=== PATIENT | female | born 1940 | race Caucasian/White ===

== ENCOUNTER 2019-01-19 22:33 | Observation (INO) | payer MEDICARE ==
[2019-01-19] MEDS ORDERED: Calcium Chloride 1 GM/10 ML Abboject SYRINGE ONE (22:36)
--- NOTE | 2019-01-19 23:26 | RAD ---
PORTABLE CHEST ONE VIEW: 01/19/2019 11:05 p.m. HISTORY: Dyspnea. Cough. Weakness. Shortness of breath. COMPARISON: 12/04/2016 FINDINGS: The patient is rotated. The heart size is normal. The lungs are well expanded without lobar consoli dation, pneumothoraces, beronica pulmonary edema, or pleural effusions. POS: [facility]
[2019-01-19 23:45] LABS: #Basophils 0.1 thou/uL (0.0-0.2); #Eosinphils 0.1 thou/uL (0.0-0.7); #Lymphocytes 1.3 thou/uL (1.20-3.40); #Monocytes 0.9 thou/uL (0.11-0.59); %Basophils 0.5 % (0.0-1.0); %Eosinophils 0.6 % (0.0-10.0); %Lymphocytes 10.6 % (21.0-51.0); %Monocytes 7.1 % (0.0-10.0); %Neutrophils 81.3 % (42.0-75.0); Hemoglobin 14.2 g/dL (12.0-16.0); Mean Corpuscular HGB CONC 32.5 g/dL (32.0-36.0); Mean Corpuscular Hemoglobin 30.7 pg (27.0-31.0); Mean Corpuscular Volume 94.6 fL (78.0-98.0); Mean Platelet Volume 8.7 fL (7.4-10.4); Platelet Count 212 thou/uL (130-400); RBC Distribution Width 12.4 % (11.5-14.5); Red Blood Cell (RBC) Count 4.63 mill/uL (4.20-5.40); White Blood Cell (WBC) Count 12.3 thou/uL (4.8-10.8)
[2019-01-19 23:48] LABS: Bacteria/HPF None Seen HPF (None Seen); Bilirubin Negative (Negative); Blood, Urine 1+ (Negative); Clarity Clear (Clear); Glucose, Urine (Dipstick) Normal (Negative); Leukocyte Negative Leu/uL (Negative); Nitrite Negative (Negative); Protein, Urine (Dipstick) Negative (Neg-Trace); RBC/HPF 0-3 HPF (0-3); Squamous Epithelial 0-3 HPF (0-3); Urobilinogen Normal mg/dL (Less than 2); WBC/HPF 0-3 HPF (0-3)
[2019-01-20 00:08] LABS: Troponin I 0.015 ng/mL (< 0.028)
[2019-01-20 00:23] LABS: ALT (SGPT) 8 U/L (8-55); AST (SGOT) 23 U/L (5-34); Albumin 3.7 g/dL (3.4-4.8); Alkaline Phosphatase 96 U/L (40-150); Anion Gap 16 mmol/L (10-20); BUN (Urea Nitrogen) 16 mg/dL (9.8-20.1); Bilirubin, Total 0.5 mg/dL (0.2-1.2); Calc. Creatinine Clearance 0 mL/min (70-130); Calcium 9.3 mg/dL (7.8-10.44); Carbon Dioxide 25 mmol/L (23-31); Chloride 98 mmol/L (98-107); Estimated GFR-MDRD 77; Globulin 3.6 g/dL (2.4-3.5); Glucose 125 mg/dL (83-110); Potassium 5.1 mmol/L (3.5-5.1); Protein, Total 7.3 g/dL (6.0-8.3); Sodium 134 mmol/L (136-145)
[2019-01-20 02:26] VITALS: BMI 16.3
[2019-01-20] MEDS ORDERED: Sodium Chloride 0.9% 1,000 ML IV SCH (02:52)
[2019-01-20] MEDS ORDERED: Ondansetron ODT 4 MG TAB PO PRN (03:43)
[2019-01-20] MEDS ORDERED: Acetaminophen 500 MG TAB PO PRN (03:43)
[2019-01-20] MEDS ORDERED: Ondansetron PF 4 MG/2 ML Vial IVP PRN (03:43)
[2019-01-20] MEDS: Sodium Chloride 0.9% 1,000 ML IV SCH ×2 (04:14→16:43)
--- NOTE | 2019-01-20 05:01 | HP ---
PRIMARY CARE PROVIDER: Paige Cabrera MD CHIEF COMPLAINT: General weakness. HISTORY OF PRESENT ILLNESS: This is a 78-year-old female, who presents to [facility] after patient's primary hearing healthcare practitioner noted increased shortness of breath as well as generalized weakness over the last 24 to 48 hours. The patient normally able to ambulate, but now essentially lying in bed. The patient was noted with decreased appetite and oral intake and urine output. The patient with long-standing tobacco use. The patient apparently at baseline is oriented to person, place, and time, however, has been noted with worsening dementia, treated with Aricept. No reported history of falls or injury. History has been obtained after review of electronic medical record from the emergency room as the patient has advanced dementia and unable to provide a coherent history. In the emergency room, the patient underwent general evaluation including chest imaging showing no acute infiltrate. Metabolic screening showed evidence of mild leukocytosis with neutrophilia, otherwise unremarkable. The patient received bronchodilator therapy with DuoNeb and 1 L of normal saline. PAST MEDICAL HISTORY: 1. Tobacco abuse. 2. Dementia, likely Alzheimer's type. 3. Dislocation of the left hip with femoral neck and acetabular fractures. 4. Anxiety disorder. PAST SURGICAL HISTORY: 1. Status post left hip reduction after dislocation. 2. Status post hysterectomy. CURRENT MEDICATIONS: 1. Celebrex 200 mg p.o. daily. 2. Aricept 10 mg p.o. daily. 3. Trazodone 100 mg p.o. at bedtime. ALLERGIES: NO KNOWN DRUG ALLERGIES. FAMILY HISTORY: No inheritable diseases. SOCIAL HISTORY: The patient resides in the [place], [place] area. 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 Smokes up to half a pack of cigarettes daily. No alcohol or illicit drug use. REVIEW OF SYSTEMS: Unobtainable due to patient's advanced dementia. PHYSICAL EXAMINATION: VITAL SIGNS: On admission, blood pressure 131/107, pulse 116, temperature 98.7 degrees Fahrenheit, O2 saturation 88% on room air. GENERAL APPEARANCE: This is a 78-year-old female, alert and oriented x1, pleasant, in no acute distress. HEENT: Pupils equal, round, reactive to light and accommodation. Extraocular muscles are intact. No scleral icterus. No conjunctival injection. Nares patent. OP is clear. Teeth in fair repair. NECK: Supple. No cervical adenopathy. No thyromegaly. No carotid bruits. No JVD noted. CHEST: Diminished breath sounds in the bases, otherwise clear to auscultation bilaterally. CARDIOVASCULAR: S1-S2 with distant heart sounds. No murmur, rub, or gallop appreciated. ABDOMEN: Flat, soft, nontender, and nondistended. Bowel sounds are positive in all 4 quadrants. There is no hepatosplenomegaly. No abdominal bruits. No rebound or guarding appreciated. EXTREMITIES: Warm and dry with fair turgor. Generalized atrophy noted. Pulses palpable distally at the dorsalis pedis, posterior tibial, and popliteal arteries bilaterally. Capillary refill less than 2 seconds. NEUROLOGIC: Cranial nerves 2 through 12 are grossly intact. Alert and oriented to person only. Not observed ambulatory during this exam. PERTINENT LAB AND X-RAY FINDINGS: Sodium 134, potassium 5.1, chloride 98, CO2 of 25, BUN 16, creatinine 0.73, glucose 125, calcium 9.3. LFTs within normal limits. CBC showed a white blood cell count of 12.3, hemoglobin 14, hematocrit 44, and platelet count 212, with 81% neutrophils. Portable chest x-ray dated 01/19/2019, showed no acute cardiopulmonary process. EKG dated 01/19/2019 by my interpretation shows incomplete right bundle-branch block pattern. Left anterior fascicular block noted. Heart rate in the low 100s. ASSESSMENT AND PLAN: 1. Generalized weakness. The patient will be placed in observation on the medical floor. Suspect multifactorial presentation given the patient's advanced age, long-standing tobacco abuse with questionable component of dehydration. We will continue intravenous normal saline at 75 mL/h. PT evaluation for functional assessment. General fall risk precautions. 2. Acute dyspnea. Suspect multifactorial given patient's longstanding history of tobacco abuse. No evidence to suggest an acute chronic obstructive pulmonary disease exacerbation. Continue bronchodilator therapy. 3. Tobacco abuse. Offer smoking cessation resources prior to discharge. 4. Neutrophilic leukocytosis. Exact etiology is unclear. Continue serial CBC monitoring. No focal evidence of infectious process. 5. Prophylaxis. SCDs while in bed. Pepcid 20 mg p.o. b.i.d. PT evaluation for functional assessment. 6. Code status is full. Surrogate medical decision maker is the patient's son. Job ID: [id number]
[2019-01-20] MEDS: CeleCOXIB 100 MG CAP PO SCH (08:48)
[2019-01-20] MEDS: Famotidine 20 MG TAB PO SCH (08:49)
[2019-01-20] MEDS: Donepezil HCl 5 MG TAB PO SCH (08:49)
--- NOTE | 2019-01-20 09:12 | PDOC.PN ---
- Subjective Encounter Start Date: 01/20/19 Encounter Start Time: 09:11 Subjective: Admitted with worsening weakness and poor oral intake. -: Denied fever. History limited due to patient factor (memory lapses) - Objective Resuscitation Status - Order Detail: 01/20/19 03:39 Resuscitation Status Routine Resuscitation Status: FULL: Full Resuscitation Vital Signs & Weight: Vital Signs (12 hours) Temp Pulse Resp BP BP Pulse Ox 01/20/19 04:00 98.1 F 97 16 141/79 H 93 L 01/20/19 02:23 98.9 F 74 18 126/73 94 L Weight Weight 92 lb 4.8 oz I&O: 01/19/19 01/20/19 01/21/19 06:59 06:59 06:59 Intake Total 300 Output Total 240 Balance 60 Result Diagrams: 01/19/19 23:13 01/19/19 23:13 Phys Exam - Physical Examination thin HEENT: PERRLA dry lips Neck: no JVD Respiratory: no wheezing, no rales, no rhonchi, clear to auscultation bilateral Cardiovascular: RRR Gastrointestinal: soft, non-tender, positive bowel sounds Musculoskeletal: no edema, pulses present Neurological: non-focal, moves all 4 limbs Awake and conversation. memory lapses noted Oriented to person and time. Dx/Plan (1) Protein calorie malnutrition Code(s): E46 - UNSPECIFIED PROTEIN-CALORIE MALNUTRITION Status: Acute (2) Failure to thrive in adult Status: Acute (3) Dehydration Code(s): E86.0 - DEHYDRATION Status: Acute (4) Physical deconditioning Code(s): R53.81 - OTHER MALAISE Status: Acute - Plan Continue IVF and supportive care. -: consult pressure steamer tender -: start oral supplement * .
[2019-01-20] MEDS: traZODone HCl 50 MG TAB PO SCH (20:21)
[2019-01-21 05:34] LABS: Anion Gap 9 mmol/L (10-20); BUN (Urea Nitrogen) 12 mg/dL (9.8-20.1); Calc. Creatinine Clearance 51 mL/min (70-130); Calcium 8.7 mg/dL (7.8-10.44); Carbon Dioxide 28 mmol/L (23-31); Chloride 107 mmol/L (98-107); Estimated GFR-MDRD Greater than 90; Glucose 86 mg/dL (83-110); Potassium 3.6 mmol/L (3.5-5.1); Sodium 140 mmol/L (136-145)
[2019-01-21 05:41] LABS: Band 1 % (5-11); Eosinophils 2 % (0-10); Hemoglobin 12.4 g/dL (12.0-16.0); Lymphocytes 28 % (21-51); MDiff Complete? YES; Mean Corpuscular HGB CONC 31.8 g/dL (32.0-36.0); Mean Corpuscular Hemoglobin 30.5 pg (27.0-31.0); Mean Corpuscular Volume 96.2 fL (78.0-98.0); Mean Platelet Volume 6.7 fL (7.4-10.4); Monocytes 5 % (0-10); Neutrophil 64 % (42-75); Platelet Count 249 thou/uL (130-400); Platelet Morphology Comment Appears Adequate; RBC Distribution Width 12.2 % (11.5-14.5); RBC Morphology Normal; Red Blood Cell (RBC) Count 4.07 mill/uL (4.20-5.40); White Blood Cell (WBC) Count 6.9 thou/uL (4.8-10.8)
[2019-01-21] MEDS: Sodium Chloride 0.9% 1,000 ML IV SCH ×2 (06:15→20:18)
[2019-01-21] MEDS: Famotidine 20 MG TAB PO SCH (09:42)
[2019-01-21] MEDS: CeleCOXIB 100 MG CAP PO SCH (09:42)
[2019-01-21] MEDS: Donepezil HCl 5 MG TAB PO SCH (09:43)
--- NOTE | 2019-01-21 16:30 | PDOC.PN ---
- Subjective Encounter Start Date: 01/21/19 Encounter Start Time: 11:28 Subjective: Patient reports feeling well and without complaints. States she feels -: better than she did at home. Has had a small breakfast, no lunch as she -: does not have an appetite. She said she often doesnt eat though she is aware she has to. States she doesnt feel like it. Denies experiencing any nausea or vomiting. No abdominal pain. She states she has been managing well at home with the help of her friend who is her design project manager and helps her with whatever she needs. - Objective Resuscitation Status - Order Detail: 01/20/19 03:39 Resuscitation Status Routine Resuscitation Status: FULL: Full Resuscitation Vital Signs & Weight: Vital Signs (12 hours) Temp Pulse Resp BP Pulse Ox 01/21/19 15:16 97.9 F 71 14 132/78 95 01/21/19 11:13 98 F 64 14 117/66 96 01/21/19 07:28 97.4 F L 65 14 124/54 L 98 01/21/19 04:39 97.9 F 65 16 128/56 L 98 Weight Admit Weight 92 lb 4.8 oz Weight 92 lb 9.6 oz I&O: 01/20/19 01/21/19 01/22/19 06:59 06:59 06:59 Intake Total 300 1994 Output Total 240 1400 Balance 60 594 Result Diagrams: 01/21/19 04:35 01/21/19 04:35 Phys Exam - Physical Examination Constitutional: NAD Very thin and frail, cachectic HEENT: PERRLA, moist MMs, sclera anicteric, oral pharynx no lesions Neck: no nodes, no JVD, supple, full ROM Respiratory: no wheezing, no rales, no rhonchi, clear to auscultation bilateral Cardiovascular: RRR, no significant murmur, no rub Gastrointestinal: soft, non-tender, no distention, positive bowel sounds Musculoskeletal: no edema, pulses present Neurological: non-focal, normal sensation, moves all 4 limbs Psychiatric: normal affect, A&O x 3 Skin: no rash Dx/Plan (1) Dehydration Code(s): E86.0 - DEHYDRATION Status: Acute (2) Failure to thrive in adult Status: Acute (3) Physical deconditioning Code(s): R53.81 - OTHER MALAISE Status: Acute (4) Protein calorie malnutrition Code(s): E46 - UNSPECIFIED PROTEIN-CALORIE MALNUTRITION Status: Acute - Plan cont current plan of care Renal function improved. Rehab screening requested but due to -: insurance unable to have rehab placement. Patient for NH or SNF with PT/OT. I was given the phone by CSM Ferro to speak to son and answer any questions regarding her care and work-up, as well as current status. After providing an update her Son began to express frustration over speaking to too many different people with different plans, expressed patient is not safe to come home as he cant cope with her. I explained the only plan in place was for SNF placement. Son was adamant about having all providers involved in her care to speak to Dr. Cabrera and ask him the recommendations for placement. I explained the physician who admitted her was no longer on her case but that I would let Dr. Davis know, my supervising physician, of his concerns. He proceeded to become agitated and stated I was not listening and that what he needed me to say specifically was "You will have that Physician call Dr. Rico to get his recommendations" and began to state that he keeps talking to people regarding forms and that we are not going to just dump his mother on the side of the road. I explained once again that we were working on SNF placement as per CSM Pillo, and he continued to interrupt stating I was still not saying the words he wanted to hear. He continued to become agitated. He asked for Dr. Davis to call PCP, when I told him I would let her know his requests, he said "the is a she?" and I confirmed. He became increasingly agitated and appeared to be unhappy to have female providers. The patient hung up on me. I updated Dr. Davis and we will kindly transfer the patients care to one of our male physicians.
[2019-01-21] MEDS: Nicotine 7 MG PATCH TD SCH (18:24)
[2019-01-21] MEDS: traZODone HCl 50 MG TAB PO SCH (20:07)
[2019-01-22] MEDS ORDERED: Senokot S 8.6-50 MG TAB PO PRN (07:18)
[2019-01-22] MEDS ORDERED: Diabetic Tussin 200 MG/10 ML UDCUP PO PRN (07:18)
[2019-01-22] MEDS ORDERED: Bisacodyl 10 MG SUPP PR PRN (07:18)
[2019-01-22] MEDS ORDERED: Calcium Carbonate 500 MG ChewTAB PO PRN (07:18)
[2019-01-22] MEDS ORDERED: Loratadine 10 MG TAB PO PRN (07:18)
[2019-01-22] MEDS ORDERED: Cepastat Lozenges 1 LOZ PO PRN (07:18)
[2019-01-22] MEDS ORDERED: Sodium Chloride 0.65% Nasal 44 ML BOT EA NARE PRN (07:18)
[2019-01-22] MEDS ORDERED: Loperamide HCl 2 MG CAP PO PRN (07:18)
[2019-01-22] MEDS ORDERED: Artificial Tears 18 DROP/0.9 ML EA EYE PRN (07:18)
[2019-01-22] MEDS ORDERED: hydrALAZINE 20 MG/ML VIAL SLOW IVP PRN (07:18)
[2019-01-22] MEDS ORDERED: Acetaminophen 500 MG TAB PO PRN (07:19)
[2019-01-22] MEDS: Donepezil HCl 5 MG TAB PO SCH (08:20)
[2019-01-22] MEDS: Famotidine 20 MG TAB PO SCH (08:20)
[2019-01-22] MEDS: CeleCOXIB 100 MG CAP PO SCH (08:20)
--- NOTE | 2019-01-22 12:15 | EKG ---
Test Reason : SOB Blood Pressure : / mmHG Vent. Rate : 101 BPM Atrial Rate : 101 BPM P-R Int : 138 ms QRS Dur : 096 ms QT Int : 338 ms P-R-T Axes : 093 -78 087 degrees QTc Int : 438 ms Sinus tachycardia Biatrial enlargement Pulmonary disease pattern Incomplete right bundle branch block Left anterior fascicular block Confirmed by SHAMIR JARA ([id number]), manager editorial ANGE KERN ([id number]) on 01/22/2019 12:14:53 PM Referred By: Confirmed By:SHAMIR JARA
--- NOTE | 2019-01-22 12:15 | PDOC.PN ---
- Subjective Encounter Start Date: 01/22/19 Encounter Start Time: 08:15 Patient seen and examined. No new complaints. No overnight events - Objective Resuscitation Status - Order Detail: 01/20/19 03:39 Resuscitation Status Routine Resuscitation Status: FULL: Full Resuscitation MAR Reviewed: Yes Vital Signs & Weight: Vital Signs (12 hours) Temp Pulse Resp BP Pulse Ox 01/22/19 11:26 97.9 F 66 18 121/71 94 L 01/22/19 07:48 98.4 F 62 18 122/73 94 L 01/22/19 04:20 98.1 F 71 16 118/71 97 Weight Admit Weight 92 lb 4.8 oz Weight 92 lb 9.6 oz I&O: 01/21/19 01/22/19 01/23/19 06:59 06:59 06:59 Intake Total 1993 2612 Output Total 1400 Balance 594 2612 Result Diagrams: 01/21/19 04:35 01/21/19 04:35 Phys Exam - Physical Examination Constitutional: NAD HEENT: PERRLA, moist MMs, sclera anicteric Neck: no JVD, supple Respiratory: no wheezing, no rales, no rhonchi Cardiovascular: RRR, no significant murmur, no rub Gastrointestinal: soft, non-tender, no distention, positive bowel sounds Musculoskeletal: no edema, pulses present Neurological: non-focal, normal sensation Lymphatic: no nodes Psychiatric: normal affect Skin: no rash, normal turgor Dx/Plan (1) Dehydration Code(s): E86.0 - DEHYDRATION Status: Acute (2) Failure to thrive in adult Status: Acute (3) Physical deconditioning Code(s): R53.81 - OTHER MALAISE Status: Acute (4) Dementia Code(s): F03.90 - UNSPECIFIED DEMENTIA WITHOUT BEHAVIORAL DISTURBANCE Status: Chronic (5) Protein-calorie malnutrition, moderate Code(s): E44.0 - MODERATE PROTEIN-CALORIE MALNUTRITION Status: Chronic - Plan cont current plan of care, social services manager * continue nutritional support * medication reviewed as below * symptomatic treatment * nurse case management to work on her placement as per son's request. Review of Systems - Review of Systems Respiratory: negative: Cough, Dry, Shortness of Breath, Hemoptysis, SOB with Excertion, Pleuritic Pain, Sputum, Wheezing Cardiovascular: negative: chest pain, palpitations, orthopnea, paroxysmal nocturnal dyspnea, edema, light headedness, other Gastrointestinal: negative: Nausea, Vomiting, Abdominal Pain, Diarrhea, Constipation, Melena, Hematochezia, Other Genitourinary: negative: Dysuria, Frequency, Incontinence, Hematuria, Retention , Other Musculoskeletal: negative: Neck Pain, Shoulder Pain, Arm Pain, Back Pain, Hand Pain, Leg Pain, Foot Pain, Other - Medications/Allergies Allergies/Adverse Reactions: Allergies Allergy/AdvReac Type Severity Reaction Status Date / Time No Known Allergies Allergy Verified 12/16/12 22:04 Medications: Current Medications Acetaminophen (Tylenol) 500 mg PO Q6H PRN PRN Reason: Mild Pain (1-3) Artificial Tears (Tears Naturale) 2 drop EA EYE PRN PRN PRN Reason: Dry Eyes Bisacodyl (Dulcolax) 10 mg [place] DAILYPRN PRN PRN Reason: Constipation Calcium Carbonate (Tums) 500 mg PO Q4H PRN PRN Reason: Heartburn or Indigestion Celecoxib (Celebrex) 200 mg PO DAILY [facility] Last Admin: 01/22/19 08:20 Dose: 200 mg Donepezil HCl (Aricept) 10 mg PO DAILY [facility] Last Admin: 01/22/19 08:20 Dose: 10 mg Famotidine (Pepcid) 20 mg PO DAILY [facility] Last Admin: 01/22/19 08:20 Dose: 20 mg Guaifenesin (Robitussin Sf) 200 mg PO Q4H PRN PRN Reason: Cough Hydralazine HCl (Apresoline) 10 mg SLOW IVP Q4H PRN PRN Reason: SBP > 180 and HR < 70 Sodium Chloride (Normal Saline 0.9%) 1,000 mls @ 75 mls/hr IV .[id number] [facility] Last Admin: 01/21/19 20:18 Dose: 1,000 mls Loperamide HCl (Imodium) 2 mg PO PRN PRN PRN Reason: Diarrhea/Loose Stools Loratadine (Claritin) 10 mg PO DAILYPRN PRN PRN Reason: Sinus Symptoms Nicotine (Nicoderm Patch) 7 mg TD Q24HR [facility] Last Admin: 01/21/19 18:24 Dose: Not Given Ondansetron HCl (Zofran Odt) 4 mg PO Q6H PRN PRN Reason: Nausea/Vomiting Ondansetron HCl (Zofran) 4 mg IVP Q6H PRN PRN Reason: Nausea/Vomiting Senna/Docusate Sodium (Senokot S) 2 tab PO BID PRN PRN Reason: Constipation Sodium Chloride ([place] Nasal [place] 0.65%) 0 ml EA NARE QIDPRN PRN PRN Reason: Nasal Congestion Sodium Chloride (Flush - Normal Saline) 10 ml IVF Q12HR [facility] Last Admin: 01/22/19 08:20 Dose: Not Given Sodium Chloride (Flush - Normal Saline) 10 ml IVF PRN PRN PRN Reason: Saline Flush Throat Lozenges (Cepastat Lozenges) 1 galo PO Q2H PRN PRN Reason: Sore Throat Trazodone HCl (Desyrel) 100 mg PO [facility] Last Admin: 01/21/19 20:07 Dose: 100 mg
[2019-01-22] MEDS: Sodium Chloride 0.9% 1,000 ML IV SCH (17:05)
[2019-01-22] MEDS: Nicotine 7 MG PATCH TD SCH (17:05)
[2019-01-22] MEDS: traZODone HCl 50 MG TAB PO SCH (20:33)
[2019-01-23] MEDS: Sodium Chloride 0.9% 1,000 ML IV SCH ×3 (06:45→20:42)
[2019-01-23] MEDS: CeleCOXIB 100 MG CAP PO SCH (08:32)
[2019-01-23] MEDS: Donepezil HCl 5 MG TAB PO SCH (08:32)
[2019-01-23] MEDS: Famotidine 20 MG TAB PO SCH (08:32)
--- NOTE | 2019-01-23 14:28 | PDOC.PN ---
- Subjective Encounter Start Date: 01/23/19 Encounter Start Time: 07:15 Patient seen and examined. No new complaints. No overnight events - Objective Resuscitation Status - Order Detail: 01/20/19 03:39 Resuscitation Status Routine Resuscitation Status: FULL: Full Resuscitation MAR Reviewed: Yes Vital Signs & Weight: Vital Signs (12 hours) Temp Pulse Resp BP Pulse Ox 01/23/19 11:38 97.9 F 75 18 120/75 95 01/23/19 07:19 98.1 F 68 14 117/68 95 01/23/19 04:30 98.6 F 72 18 118/61 95 Weight Admit Weight 92 lb 4.8 oz Weight 92 lb 9.6 oz I&O: 01/22/19 01/23/19 01/24/19 06:59 06:59 06:59 Intake Total 2612 1400 Balance 2612 1400 Result Diagrams: 01/21/19 04:35 01/21/19 04:35 Phys Exam - Physical Examination Constitutional: NAD HEENT: moist MMs, sclera anicteric Neck: no JVD, supple Respiratory: no wheezing, no rales, no rhonchi Cardiovascular: RRR, no significant murmur, no rub Gastrointestinal: soft, non-tender, no distention, positive bowel sounds Musculoskeletal: no edema, pulses present Neurological: non-focal, normal sensation Lymphatic: no nodes Psychiatric: normal affect Skin: no rash, normal turgor Dx/Plan (1) Dehydration Code(s): E86.0 - DEHYDRATION Status: Resolved (2) Failure to thrive in adult Status: Acute (3) Physical deconditioning Code(s): R53.81 - OTHER MALAISE Status: Acute (4) Dementia Code(s): F03.90 - UNSPECIFIED DEMENTIA WITHOUT BEHAVIORAL DISTURBANCE Status: Chronic (5) Protein-calorie malnutrition, moderate Code(s): E44.0 - MODERATE PROTEIN-CALORIE MALNUTRITION Status: Chronic - Plan 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 Review of Systems - Review of Systems ENT: negative: Ear Pain, Ear Discharge, Nose Pain, Nose Discharge, Nose Congestion, Mouth Pain, Mouth Swelling, Throat Pain, Throat Swelling, Other Respiratory: negative: Cough, Dry, Shortness of Breath, Hemoptysis, SOB with Excertion, Pleuritic Pain, Sputum, Wheezing Cardiovascular: negative: chest pain, palpitations, orthopnea, paroxysmal nocturnal dyspnea, edema, light headedness, other Gastrointestinal: negative: Nausea, Vomiting, Abdominal Pain, Diarrhea, Constipation, Melena, Hematochezia, Other Genitourinary: negative: Dysuria, Frequency, Incontinence, Hematuria, Retention , Other Musculoskeletal: negative: Neck Pain, Shoulder Pain, Arm Pain, Back Pain, Hand Pain, Leg Pain, Foot Pain, Other - Medications/Allergies Allergies/Adverse Reactions: Allergies Allergy/AdvReac Type Severity Reaction Status Date / Time No Known Allergies Allergy Verified 12/16/12 22:04 Medications: Current Medications Acetaminophen (Tylenol) 500 mg PO Q6H PRN PRN Reason: Mild Pain (1-3) Artificial Tears (Tears Naturale) 2 drop EA EYE PRN PRN PRN Reason: Dry Eyes Bisacodyl (Dulcolax) 10 mg [place] DAILYPRN PRN PRN Reason: Constipation Calcium Carbonate (Tums) 500 mg PO Q4H PRN PRN Reason: Heartburn or Indigestion Celecoxib (Celebrex) 200 mg PO DAILY [facility] Last Admin: 01/23/19 08:32 Dose: 200 mg Donepezil HCl (Aricept) 10 mg PO DAILY [facility] Last Admin: 01/23/19 08:32 Dose: 10 mg Famotidine (Pepcid) 20 mg PO DAILY [facility] Last Admin: 01/23/19 08:32 Dose: 20 mg Guaifenesin (Robitussin Sf) 200 mg PO Q4H PRN PRN Reason: Cough Hydralazine HCl (Apresoline) 10 mg SLOW IVP Q4H PRN PRN Reason: SBP > 180 and HR < 70 Sodium Chloride (Normal Saline 0.9%) 1,000 mls @ 75 mls/hr IV .[id number] [facility] Last Admin: 01/23/19 12:32 Dose: 1,000 mls Loperamide HCl (Imodium) 2 mg PO PRN PRN PRN Reason: Diarrhea/Loose Stools Loratadine (Claritin) 10 mg PO DAILYPRN PRN PRN Reason: Sinus Symptoms Nicotine (Nicoderm Patch) 7 mg TD Q24HR [facility] Last Admin: 01/22/19 17:05 Dose: Not Given Ondansetron HCl (Zofran Odt) 4 mg PO Q6H PRN PRN Reason: Nausea/Vomiting Ondansetron HCl (Zofran) 4 mg IVP Q6H PRN PRN Reason: Nausea/Vomiting Senna/Docusate Sodium (Senokot S) 2 tab PO BID PRN PRN Reason: Constipation Sodium Chloride ([place] Nasal [place] 0.65%) 0 ml EA NARE QIDPRN PRN PRN Reason: Nasal Congestion Sodium Chloride (Flush - Normal Saline) 10 ml IVF Q12HR [facility] Last Admin: 01/23/19 08:33 Dose: Not Given Sodium Chloride (Flush - Normal Saline) 10 ml IVF PRN PRN PRN Reason: Saline Flush Throat Lozenges (Cepastat Lozenges) 1 galo PO Q2H PRN PRN Reason: Sore Throat Trazodone HCl (Desyrel) 100 mg PO HS [facility] Last Admin: 01/22/19 20:33 Dose: 100 mg
[2019-01-23] MEDS: Nicotine 7 MG PATCH TD SCH (17:00)
[2019-01-23] MEDS: traZODone HCl 50 MG TAB PO SCH (20:40)
[2019-01-24] MEDS: CeleCOXIB 100 MG CAP PO SCH (09:57)
[2019-01-24] MEDS: Donepezil HCl 5 MG TAB PO SCH (09:58)
[2019-01-24] MEDS: Famotidine 20 MG TAB PO SCH (09:58)
--- NOTE | 2019-01-24 10:34 | PDOC.PN ---
- Subjective Encounter Start Date: 01/24/19 Encounter Start Time: 08:15 Patient seen and examined. No new complaints. No overnight events - Objective Resuscitation Status - Order Detail: 01/20/19 03:39 Resuscitation Status Routine Resuscitation Status: FULL: Full Resuscitation MAR Reviewed: Yes Vital Signs & Weight: Vital Signs (12 hours) Temp Pulse Resp BP BP Pulse Ox 01/24/19 08:00 97.6 F 93 16 94/53 L 95 01/24/19 04:13 98.4 F 71 16 132/68 96 01/23/19 23:21 98.1 F 75 14 129/79 96 Weight Admit Weight 92 lb 4.8 oz Weight 92 lb 9.6 oz I&O: 01/23/19 01/24/19 01/25/19 06:59 06:59 06:59 Intake Total 1400 240 Balance 1400 240 Result Diagrams: 01/21/19 04:35 01/21/19 04:35 Phys Exam - Physical Examination Constitutional: NAD HEENT: moist MMs, sclera anicteric Neck: no JVD, supple Respiratory: no wheezing, no rales, no rhonchi Cardiovascular: RRR, no significant murmur, no rub Gastrointestinal: soft, non-tender, no distention, positive bowel sounds Musculoskeletal: no edema, pulses present Neurological: non-focal, normal sensation Lymphatic: no nodes Psychiatric: normal affect Skin: no rash, normal turgor Dx/Plan (1) Dehydration Code(s): E86.0 - DEHYDRATION Status: Resolved (2) Failure to thrive in adult Status: Acute (3) Physical deconditioning Code(s): R53.81 - OTHER MALAISE Status: Acute (4) Dementia Code(s): F03.90 - UNSPECIFIED DEMENTIA WITHOUT BEHAVIORAL DISTURBANCE Status: Chronic (5) Protein-calorie malnutrition, moderate Code(s): E44.0 - MODERATE PROTEIN-CALORIE MALNUTRITION Status: Chronic - Plan 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 Review of Systems - Review of Systems ENT: negative: Ear Pain, Ear Discharge, Nose Pain, Nose Discharge, Nose Congestion, Mouth Pain, Mouth Swelling, Throat Pain, Throat Swelling, Other Respiratory: negative: Cough, Dry, Shortness of Breath, Hemoptysis, SOB with Excertion, Pleuritic Pain, Sputum, Wheezing Cardiovascular: negative: chest pain, palpitations, orthopnea, paroxysmal nocturnal dyspnea, edema, light headedness, other Genitourinary: negative: Dysuria, Frequency, Incontinence, Hematuria, Retention , Other Musculoskeletal: negative: Neck Pain, Shoulder Pain, Arm Pain, Back Pain, Hand Pain, Leg Pain, Foot Pain, Other - Medications/Allergies Allergies/Adverse Reactions: Allergies Allergy/AdvReac Type Severity Reaction Status Date / Time No Known Allergies Allergy Verified 12/16/12 22:04 Medications: Current Medications Acetaminophen (Tylenol) 500 mg PO Q6H PRN PRN Reason: Mild Pain (1-3) Artificial Tears (Tears Naturale) 2 drop EA EYE PRN PRN PRN Reason: Dry Eyes Bisacodyl (Dulcolax) 10 mg SD DAILYPRN PRN PRN Reason: Constipation Calcium Carbonate (Tums) 500 mg PO Q4H PRN PRN Reason: Heartburn or Indigestion Celecoxib (Celebrex) 200 mg PO DAILY [facility] Last Admin: 01/24/19 09:57 Dose: 200 mg Donepezil HCl (Aricept) 10 mg PO DAILY [facility] Last Admin: 01/24/19 09:58 Dose: 10 mg Famotidine (Pepcid) 20 mg PO DAILY [facility] Last Admin: 01/24/19 09:58 Dose: 20 mg Guaifenesin (Robitussin Sf) 200 mg PO Q4H PRN PRN Reason: Cough Hydralazine HCl (Apresoline) 10 mg SLOW IVP Q4H PRN PRN Reason: SBP > 180 and HR < 70 Sodium Chloride (Normal Saline 0.9%) 1,000 mls @ 75 mls/hr IV .[id number] [facility] Last Admin: 01/23/19 20:42 Dose: 1,000 mls Loperamide HCl (Imodium) 2 mg PO PRN PRN PRN Reason: Diarrhea/Loose Stools Loratadine (Claritin) 10 mg PO DAILYPRN PRN PRN Reason: Sinus Symptoms Nicotine (Nicoderm Patch) 7 mg TD Q24HR [facility] Last Admin: 01/23/19 17:00 Dose: Not Given Ondansetron HCl (Zofran Odt) 4 mg PO Q6H PRN PRN Reason: Nausea/Vomiting Ondansetron HCl (Zofran) 4 mg IVP Q6H PRN PRN Reason: Nausea/Vomiting Senna/Docusate Sodium (Senokot S) 2 tab PO BID PRN PRN Reason: Constipation Sodium Chloride ([place] Nasal [place] 0.65%) 0 ml EA NARE QIDPRN PRN PRN Reason: Nasal Congestion Sodium Chloride (Flush - Normal Saline) 10 ml IVF Q12HR [facility] Last Admin: 01/24/19 10:04 Dose: 10 ml Sodium Chloride (Flush - Normal Saline) 10 ml IVF PRN PRN PRN Reason: Saline Flush Throat Lozenges (Cepastat Lozenges) 1 galo PO Q2H PRN PRN Reason: Sore Throat Trazodone HCl (Desyrel) 100 mg PO HS [facility] Last Admin: 01/23/19 20:40 Dose: 100 mg
--- NOTE | 2019-01-24 10:44 | DIS ---
DATE OF ADMISSION: 01/20/2019 DATE OF DISCHARGE: 01/24/2019 PRIMARY CARE PHYSICIAN: Paige Cabrera MD. DISCHARGE DISPOSITION: long term home. PRIMARY DISCHARGE DIAGNOSES: 1. Dehydration, corrected. 2. Failure to thrive in adult. 3. Physical deconditioning. SECONDARY DISCHARGE DIAGNOSES: 1. Senile dementia. 2. Moderate protein-calorie malnutrition. PRIMARY PROCEDURE/OPERATION: None. RADIOLOGICAL INVESTIGATION: Chest x-ray. SIGNIFICANT LABORATORY DATA: WBC 6.9, hemoglobin 12.4, and platelets 249. Sodium 140, potassium 3.6, BUN 12, creatinine 0.60, and calcium 8.7. LFT normal. Troponin 0.015. TSH 2.86. Urinalysis unremarkable. DISCHARGE MEDICATIONS: 1. Celebrex 200 mg p.o. daily p.r.n. 2. Aricept 10 mg p.o. daily. 3. Trazodone 100 mg p.o. at bedtime. CONTRAINDICATION: None. CODE STATUS: Full code. INPATIENT BUSINESS OPERATIONS COORDINATOR: None. ALLERGIES: NO KNOWN DRUG ALLERGIES. DISCHARGE PLAN: Posthospital, the patient will follow up with primary care physician in 1 or 2 weeks. HOSPITAL COURSE: A 78-year-old female who was admitted by Dr. Ortega. Please see his H and P for further details. This patient on admission appeared dehydrated. She was appeared very weak. She had generalized weakness. She was also having poor appetite. She was admitted as observation status because she was not meeting any criteria for admission. Her dehydration was corrected with IV fluid. She was given nutritional support while in hospital. During this patient's hospital course, we noted that the patient's son who expressed his concern about taking care of her at home, and there was no safe discharge plan and that is why the patient stayed in hospital for extra days despite observation status. Today, I have put discharge orders, and case assistant notified about safe discharge plan requirement. Depending upon the patient's son and the patient as well as our case assistant, the patient will be discharged either home with safe discharge plan versus jail home. I have seen and examined the patient at bedside today. The patient is completely stable. She is more alert. Her talking is fairly fine. Her vitals are stable. Her examination is normal. She appears a little bit malnourished, but she is now eating food. DISCHARGE PHYSICAL EXAMINATION: VITAL SIGNS: Today's vital signs; temperature 97.6, pulse 93, respiratory rate 16, saturation 95% on room air, blood pressure 94/53, and weight 92 pounds. GENERAL: The patient is currently alert and awake. No obvious acute distress. HEENT: Head; normocephalic, atraumatic. LUNGS: Clear without any rhonchi or rales. CARDIAC: S1, S2. Regular without any murmur. ABDOMEN: Soft and benign. EXTREMITIES: No edema. NEUROLOGIC: Nonfocal examination. Overall, the patient is medically stable for discharge today. Paperwork for discharge done. Discharge medication reconciliation done. Job ID: [id number]
[2019-01-24 11:56] VITALS: BP 139/79; TEMP 98.9
== END 2019-01-24 15:34 ==
LOC: ERS 22:33 → SURG B 01-20 02:10 → SURG A 01-21 18:32
PROVIDERS: ADMIT Family Medicine; ATTEND Family Medicine
DX: E86.0 Dehydration (principal); R62.7 Adult failure to thrive; R53.81 Other malaise; F03.90 Unspecified dementia, unspecified severity, without behavioral disturbance, psychotic disturbance, mood disturbance, and anxiety; E44.0 Moderate protein-calorie malnutrition; F41.9 Anxiety disorder, unspecified; R06.00 Dyspnea, unspecified; F17.210 Nicotine dependence, cigarettes, uncomplicated; D72.829 Elevated white blood cell count, unspecified; I44.4 Left anterior fascicular block; Z68.1 Body mass index [BMI] 19.9 or less, adult; Z79.899 Other long term (current) drug therapy
CPT/HCPCS: 51701; 71045; 80048; 80053; 84443; 84484; 85007; 85025; 85027; 93005; 94640; 96360; 96361 ×6; 97116; 97139 ×2; 97535; 99285; G0378 ×3; 36415; 81003; 81015; A4353; J7620

== ENCOUNTER 2019-06-07 20:10 | Inpatient (IN) | payer MEDICARE ==
--- NOTE | 2019-06-07 22:49 | CT ---
CT PELVIS WITHOUT CONTRAST: 06/07/19 HISTORY: Fall, left hip injury and pain. FINDINGS: There is a complete fracture involving the subcapital region in the neck of the left femur with assoc iated foreshortening. No right sided hip fracture or dislocation is seen. The remainder of the pelvic bones are also intact. IMPRESSION: Fracture of the left femoral neck. POS: OFF
--- NOTE | 2019-06-07 22:58 | HP ---
REQUESTING PHYSICIAN: Omar Alvarez DO ATTENDING SURGEON: Eldon Garcia MD CONSULTATIONS: Orthopedics, Dr. Archer. HISTORY OF PRESENT ILLNESS: The patient is a 79-year-old woman who was transferred here from the [facility], where she presented after a reported unwitnessed ground level fall. The patient stays at a nursing facility in that area. She reportedly has had multiple falls over the last several months. Tonight, her left hip appeared to have a fracture that was of indeterminate age. She was subsequently transferred to our facility for evaluation for admission and obtain Orthopedic consultations. The patient denied any loss of consciousness; though , the patient is a fairly poor historian due to her dementia. She denies any hip pain at this time and at the time of my examination, she was actually up walking and the nurse was assisting her to bed. ALLERGIES: NONE. CURRENT MEDICATIONS: 1. Symbicort. 2. Albuterol. 3. Duloxetine. 4. Meloxicam. 5. Aricept. 6. Trazodone. 7. Tramadol. PAST MEDICAL HISTORY: Alzheimer's dementia, repeated falls, and failure to thrive. PAST SURGICAL HISTORY: Hysterectomy. SOCIAL HISTORY: There is no history of alcohol or drug use. There is a reported history of tobacco use of a half pack of cigarettes per day. REVIEW OF SYSTEMS: A 10-point review of systems was negative as otherwise stated. PHYSICAL EXAMINATION: VITAL SIGNS: Blood pressure 130/60, heart rate 60, respirations 16, oxygen saturation is 96% on room air, and temperature is 98.5. GENERAL: The patient appears comfortable in bed. She was just returning to her bed. When I entered the room, she was sitting and appears in no distress. She is moving both of her lower extremities freely and actually draws them up to push herself up into the bed. The patient is A and O x1. She is confused as to her location and time. Myesha Coma Scale is 14, E4, V4, M6, minus 1 for confusion. HEENT: Head is normocephalic and atraumatic. Eyes, extraocular motion intact. PERRLA bilaterally. Ears are atraumatic without discharge. Nose is atraumatic without discharge. Oropharynx is clear. NECK: Nontender. Trachea is midline. No JVD. CHEST: Clear to auscultation with good inspiratory and expiratory effort. HEART: Regular rate and rhythm. ABDOMEN: Soft, flat, nontender with active bowel sounds. PELVIS: Stable. The patient denies left hip pain. EXTREMITIES: Neurovascularly intact x4. BACK: Atraumatic and nontender. LABORATORY FINDINGS: White blood cell count 11.3, hemoglobin 13.4, hematocrit 41.4, platelets 343. PT 12.4, INR 0.9. Sodium 140, potassium 4.3, chloride 101, CO2 of 29, BUN 25, creatinine 0.72, and glucose 77. LFTs are unremarkable. Urinalysis is unremarkable. RADIOGRAPHIC FINDINGS: Views of the left hip show fracture of the left femoral neck, which has changed in alignment since the March study. Prior study, it was well aligned, but showed a healing injury with callus. Today's study shows a fracture through this area with inner rotation of the femoral head. It is difficult to assess if this finding is due to recent fall or if it does occur between the prior study and now. ASSESSMENT: 1. Status post fall. 2. Possible left hip fracture, age indeterminate. 3. History of Alzheimer dementia. 4. History of failure to thrive and recurrent falls. PLAN: Plan will be to admit the patient to the surgical floor. The case was discussed with Dr. Archer and we will order a CT to evaluate for the acuity of this injury. The patient will be made n.p.o. after midnight pending on the acuity and her function. She will have pain control, pulmonary toilet, gastritis, and mechanical VTE prophylaxis. The evaluation, examination, laboratory, and radiographic findings will be discussed with Dr. Garcia after this dictation. Job ID: [id number] MTDD
[2019-06-07] MEDS ORDERED: hydrALAZINE 20 MG/ML VIAL SLOW IVP PRN (23:46)
[2019-06-07] MEDS ORDERED: Morphine 4 MG/ML VIAL SLOW IVP PRN (23:46)
[2019-06-07] MEDS ORDERED: Cyclobenzaprine 10 MG TAB PO PRN (23:46)
[2019-06-07] MEDS ORDERED: Dextrose 50% Abboject 50 ML SYRINGE SLOW IVP PRN (23:46)
[2019-06-07] MEDS ORDERED: Melatonin 3 MG TAB PO PRN (23:46)
[2019-06-07] MEDS ORDERED: Dextrose 5% in Water 1,000 ML IV PRN (23:46)
[2019-06-07] MEDS ORDERED: Ondansetron ODT 4 MG TAB PO PRN (23:46)
[2019-06-07] MEDS ORDERED: Ondansetron PF 4 MG/2 ML Vial IVP PRN (23:46)
[2019-06-07] MEDS ORDERED: Senokot S 8.6-50 MG TAB PO SCH (23:59)
[2019-06-07] MEDS ORDERED: Famotidine 20 MG TAB PO SCH (23:59)
[2019-06-08] MEDS: Acetaminophen 1,000 MG in Premix Bag 1 BAG IVPB SCH ×4 (00:56→17:55)
[2019-06-08] MEDS: Sodium Chloride 0.9% 1,000 ML IV SCH ×2 (00:56→08:52)
[2019-06-08] MEDS: Ketorolac Tromethamine 30 MG/ML VIAL IVP SCH ×4 (00:57→17:56)
[2019-06-08 02:26] VITALS: BMI 18.1
[2019-06-08 06:06] LABS: #Basophils 0.1 thou/uL (0.0-0.2); #Eosinphils 0.2 thou/uL (0.0-0.7); #Lymphocytes 1.9 thou/uL (1.20-3.40); #Monocytes 0.7 thou/uL (0.11-0.59); #Neutrophils 6.6 thou/uL (1.40-6.50); %Basophils 0.8 % (0.0-1.0); %Eosinophils 1.9 % (0.0-10.0); %Lymphocytes 19.8 % (21.0-51.0); %Neutrophils 70.5 % (42.0-75.0); Hemoglobin 12.8 g/dL (12.0-16.0); Mean Corpuscular HGB CONC 33.4 g/dL (32.0-36.0); Mean Corpuscular Hemoglobin 31.4 pg (27.0-31.0); Mean Platelet Volume 6.3 fL (7.4-10.4); Platelet Count 319 thou/uL (130-400); RBC Distribution Width 11.8 % (11.5-14.5); Red Blood Cell (RBC) Count 4.09 mill/uL (4.20-5.40); White Blood Cell (WBC) Count 9.3 thou/uL (4.8-10.8)
[2019-06-08 06:27] LABS: Anion Gap 10 mmol/L (10-20); BUN (Urea Nitrogen) 15 mg/dL (9.8-20.1); Calc. Creatinine Clearance 54 mL/min (70-130); Calcium 8.8 mg/dL (7.8-10.44); Carbon Dioxide 27 mmol/L (23-31); Chloride 103 mmol/L (98-107); Estimated GFR-MDRD Greater than 90; Glucose 82 mg/dL (83-110); Potassium 3.9 mmol/L (3.5-5.1); Sodium 136 mmol/L (136-145)
[2019-06-08] MEDS: Famotidine 20 MG TAB PO SCH ×2 (08:39→19:36)
[2019-06-08] MEDS: Senokot S 8.6-50 MG TAB PO SCH ×2 (08:39→19:36)
--- NOTE | 2019-06-08 09:07 | CON ---
DATE OF CONSULTATION: CHIEF COMPLAINT: Left hip pain. HISTORY OF PRESENT ILLNESS: Ms. Karimi is a 79-year-old female, who was in a nursing facility. The patient has had dementia. She has fallen several times over the last 3 months. She fell yesterday. She had an unwitnessed fall. She was unable to ambulate after that. She was taken to the emergency department for evaluation. Of note, she has been found to have a femoral neck stress fracture on previous x-ray. It appears that her stress fracture has completed to a displaced femoral neck fracture at this point. She has been admitted to the hospital. She is resting comfortably. She denies any shortness of breath or chest pain. No family is at the bedside currently. ALLERGIES: NONE. PAST MEDICAL HISTORY: Dementia, Alzheimer's. PAST SURGICAL HISTORY: Hysterectomy. SOCIAL HISTORY: The patient denies alcohol, tobacco, or drug use. REVIEW OF SYSTEMS: Positive for left hip pain. Otherwise, negative 10-point review of systems. PHYSICAL EXAMINATION: VITAL SIGNS: Temperature is 97.5, pulse is 73, respiratory rate is 16, oxygen saturation 94%, and blood pressure is 141/67. GENERAL: She is alert and oriented, in no apparent distress, lying supine. HEENT: Normocephalic, atraumatic. RESPIRATORY: Breathing comfortably. ABDOMEN: Soft, nontender, and nondistended. MUSCULOSKELETAL: The patient's left lower extremity has pain to deep palpation along the trochanter. She has mild pain with flexion of the hip. She is able to flex and extend the hip independently. She is neurovascularly intact distally in the foot and ankle. She has a palpable dorsalis pedis pulse. IMAGING DATA: X-rays and CT scan of the left hip are reviewed. These demonstrate a displaced left femoral neck fracture, which is chronic in appearance. There is sclerosis and deformity of the femoral head. IMPRESSION: Left chronic femoral neck fracture with increased displacement. PLAN: At this point, the patient will need surgical intervention. We will plan for hemiarthroplasty of the hip to relieve pain and prevent further injury and falls. Goal will be to provide early mobilization. She will be n.p.o. until surgery. I have called her son, but was not able to contact him yet. She will have DVT prophylaxis and antibiotic prophylaxis. Job ID: [id number]
[2019-06-08] MEDS ORDERED: Dexamethasone 20 MG/5 ML VIAL ONE (09:38)
[2019-06-08] MEDS ORDERED: Lidocaine 1% PF 5 ML VIAL ONE (09:38)
[2019-06-08] MEDS ORDERED: Rocuronium Bromide 10 MG/ML (10ML VIAL) ONE (09:38)
[2019-06-08] MEDS ORDERED: PROPOFOL 200 MG/20 ML VIAL ONE (09:38)
[2019-06-08] MEDS ORDERED: Ondansetron PF 4 MG/2 ML Vial ONE (09:38)
[2019-06-08] MEDS ORDERED: Glycopyrrolate 0.2 MG/ML 5 ML SYRINGE ONE (09:38)
[2019-06-08] MEDS: Polyethylene Glycol 3350 17 GM Packet PO SCH (11:07)
[2019-06-08] MEDS ORDERED: Fentanyl 100 MCG/2 ML VIAL ONE ×2 (11:55→14:19)
[2019-06-08] MEDS ORDERED: Lidocaine 2% Jelly 5 ML TUBE ONE (11:55)
[2019-06-08] MEDS ORDERED: CEFAZOLIN 2 GM in Premix Bag 1 BAG IVPB SCH ×2 (12:30→14:00)
[2019-06-08] MEDS ORDERED: Promethazine HCl 25 MG/ML VIAL SLOW IVP PRN (14:31)
[2019-06-08] MEDS ORDERED: Promethazine HCl 25 MG/ML VIAL IM PRN (14:31)
[2019-06-08] MEDS ORDERED: Ondansetron HCl/PF 4 MG/2 ML Vial IVP PRN (14:31)
--- NOTE | 2019-06-08 14:35 | RAD ---
Left hip one view HISTORY: Left hip replacement. FINDINGS: Single lateral view. Metallic prosthesis is in place. Alignment is anatomic. Soft tissue gas and skin jessica consistent with recent surgery.
--- NOTE | 2019-06-08 14:36 | RAD ---
Exam: Single view of the pelvis HISTORY: Status post left hip arthroplasty for femoral fracture COMPARISON: 06/07/2019 FINDINGS: A single view the pelvis shows the patient is status post interval left hip arthroplasty. A ir in the soft tissues and overlying skin jessica are from recent surgery. Mild degenerative changes seen in the right hip. IMPRESSION: Status post left hip arthroplasty without evidence of complication.
--- NOTE | 2019-06-08 16:01 | PRG ---
DATE OF SERVICE: 06/08/2019 SUBJECTIVE: Ms. Karimi is a 79-year-old female who has a history of severe dementia. She is living in a correction. She has fallen many times in the last 3 months. At one time, the patient had broken her left hip and hip healed by itself and then she continued recurrent falling in which the patient was transferred to our facility for evaluation of left hip fracture. This morning, Dr. Archer saw the patient and had CT scan and Dr. Archer decided to take the patient to the OR for ORIF of the left hip fracture. However, the patient reported no pain in her left hip region. The patient able to walk around the room. She developed no fever or shortness of breath. She voiced no concern. OBJECTIVE: GENERAL: The patient lying down in bed, comfortable with no acute respiratory distress. No pain is reported. VITAL SIGNS: Temperature 97.9, heart rate 57, respiratory rate 16, O2 saturation 97% on room air, and blood pressure 140/61. LUNGS: Clear bilaterally. HEART: Regular rate and rhythm. ABDOMEN: Soft, nondistended. EXTREMITIES: Neurovascularly intact x4. NEUROLOGIC: No focal neurology deficits. ASSESSMENT: 1. Status post ground level fall. 2. Left hip fracture. 3. Severe dementia. PLAN: The patient will go to the OR with Dr. Archer today for ORIF of the left hip fracture. The patient is on non-pharmacological DVT prophylaxis. We will put the patient on pharmacological DVT prophylaxis postop. The patient will be working with PT/OT. Anticipate placement in rehabilitation facility or a [facility] facility. The patient was seen and evaluated with Dr. Rabago on round this morning. Job ID: [id number]
--- NOTE | 2019-06-08 18:49 | EKG ---
Test Reason : PREOP Blood Pressure : / mmHG Vent. Rate : 056 BPM Atrial Rate : 056 BPM P-R Int : 154 ms QRS Dur : 096 ms QT Int : 456 ms P-R-T Axes : 084 -64 061 degrees QTc Int : 440 ms Sinus bradycardia Left anterior fascicular block Abnormal ECG When compared with ECG of 19-JAN-2019 22:54, Vent. rate has decreased BY 45 BPM Incomplete right bundle branch block is no longer Present Confirmed by NUNU PHAM, STyler ([id number]) on 06/08/2019 6:49:23 PM Referred By: LUCIANO Confirmed By:DR. Valente EDDY MD
--- NOTE | 2019-06-08 19:29 | OP ---
DATE OF PROCEDURE: 06/08/2019 PROCEDURE PERFORMED: Left hip hemiarthroplasty. PREOPERATIVE DIAGNOSIS: Left femoral neck fracture. POSTOPERATIVE DIAGNOSIS: Left femoral neck fracture. COMPLICATIONS: None. ESTIMATED BLOOD LOSS: 100 mL. ADMITTING COORDINATOR: Ketan Larson PA-C IMPLANTS: DePuy basic press-fit Payne stem size 4, size 42 mm bipolar shell with a +8.5 femoral head. INDICATIONS: Ms. Karimi is a 79-year-old female, who fell and fractured her left femoral neck. She appears to have had a stress fracture of the femoral neck that completed. She was indicated for hemiarthroplasty of the hip to restore the ability to mobilize and prevent further problems. Risks have been reviewed, which to include infection, dislocation, neurovascular injury, DVT, PE, and others. DESCRIPTION OF PROCEDURE: Ms. Karimi was identified in the preoperative holding area. Her correct extremity was marked. She was carried to the operating room. She was positioned supine. General anesthesia was induced. A multidisciplinary time-out was performed. The left lower extremity was prepped and draped in a sterile fashion. We began the procedure with a posterior approach to the hip. We dissected down through the subcutaneous tissues to the fascia, which was opened. We exposed the underlying short external rotators of the hip and these were subperiosteally divided from the proximal femur. At this point, we performed a capsulotomy. We then dislocated the femoral head. An osteotomy was created with an oscillating saw. We finished this with an osteotome. At this point, we proceeded to prepare the femoral canal. We reamed and then broached up to a size 4. We trialed off our size 4 broach. A +8.5 femoral head and 42 shell was appropriate for length and stability. We removed the trial components and thoroughly irrigated. We then impacted our final components. Repeat stability test was performed. At this point, we closed with #5 Ethibond suture for the short external rotators and piriformis as well as capsule. We then closed with #2 Vicryl suture, and layers for the skin. A sterile dressing was applied. The patient was taken to the recovery room in good condition without complication. Job ID: [id number]
[2019-06-08] MEDS: Morphine 2 MG/ML SYRINGE SLOW IVP PRN (19:40)
[2019-06-08] MEDS: CEFAZOLIN 2 GM in Premix Bag 1 BAG IVPB SCH (20:36)
[2019-06-08] MEDS ORDERED: Prevnar 13-Val Conj/PF 0.5 ML SYRINGE IM ONE (21:00)
[2019-06-08] MEDS ORDERED: FLU VACC TS2019-20(65YR UP)/PF 180 MCG/0.5 ML SYRINGE IM ONE (21:00)
[2019-06-09] MEDS: Morphine 2 MG/ML SYRINGE SLOW IVP PRN (00:03)
[2019-06-09] MEDS: Ketorolac Tromethamine 30 MG/ML VIAL IVP SCH ×3 (00:04→11:01)
--- NOTE | 2019-06-09 01:30 | PRG ---
DATE OF SERVICE: 06/09/2019 SUBJECTIVE: The patient is currently on the surgical floor. She is hospital day #2 immediately postop from a ground level fall when she sustained a left hip fracture. She underwent left hip hemiarthroplasty today. She reportedly tolerated this well. At the time of my visit, she was still sleeping and appeared to be recovering from her procedure. She has gotten up here late in the day and has not worked with Physical or Occupational Therapy. PHYSICAL EXAMINATION: VITAL SIGNS: Stable. The patient is afebrile. GENERAL: The patient is sleeping, appears in no distress. RESPIRATIONS: Nonlabored. ASSESSMENT: 1. Status post ground level fall. 2. Status post left hip hemiarthroplasty after left hip fracture. 3. Severe dementia. PLAN: Plan will be to continue supportive care. Begin Physical and Occupational Therapy tomorrow and likely the patient will be able to return to her [facility] in the next 24 to 48 hours. Job ID: [id number]
[2019-06-09] MEDS: CEFAZOLIN 2 GM in Premix Bag 1 BAG IVPB SCH (06:23)
[2019-06-09 08:20] LABS: Hemoglobin 10.4 g/dL (12.0-16.0); Mean Corpuscular HGB CONC 32.6 g/dL (32.0-36.0); Mean Corpuscular Hemoglobin 31.4 pg (27.0-31.0); Mean Corpuscular Volume 96.4 fL (78.0-98.0); Mean Platelet Volume 8.4 fL (7.4-10.4); Platelet Count 218 thou/uL (130-400); RBC Distribution Width 11.8 % (11.5-14.5); Red Blood Cell (RBC) Count 3.31 mill/uL (4.20-5.40); White Blood Cell (WBC) Count 11.4 thou/uL (4.8-10.8)
[2019-06-09] MEDS: Famotidine 20 MG TAB PO SCH ×2 (09:12→20:52)
[2019-06-09] MEDS: Polyethylene Glycol 3350 17 GM Packet PO SCH (09:13)
[2019-06-09] MEDS: Senokot S 8.6-50 MG TAB PO SCH ×2 (09:13→20:52)
[2019-06-09] MEDS ORDERED: Gabapentin 100 MG CAP PO PRN (15:26)
--- NOTE | 2019-06-09 15:37 | PRG ---
DATE OF SERVICE: 06/09/2019 SUBJECTIVE: Ms. Karimi is a 79-year-old female, who has history of dementia. She was living in senior care. She is status post ground level fall. She sustained left hip fracture. She underwent ORIF of left hip fracture yesterday. Postop, the patient reports she has been doing good. Pain is well controlled. She tolerated with her regular diet. Her vital signs have been stable. OBJECTIVE: GENERAL: The patient lying in bed comfortable with no acute respiratory distress. No pain to be reported. VITAL SIGNS: Temperature is 97.5, heart rate 61, respiratory rate 15, O2 saturation 97% on room air, and blood pressure 102/54. LUNGS: Clear bilaterally. HEART: Regular rate and rhythm. ABDOMEN: Soft and nondistended. EXTREMITIES: Neurovascularly intact x4. Postop dressing clean, dry, intact. NEUROLOGIC: No focal neurology deficits. ASSESSMENT: 1. Status post ground level fall. 2. Left hip fracture, status post open reduction and internal fixation of left hip fracture, postop day 1. 3. Severe dementia. PLAN: The patient will work with PT/OT today. Continue DVT prophylaxis. Continue supportive care. Anticipate placement in [facility] facility or go back to senior care. Job ID: [id number]
[2019-06-09] MEDS ORDERED: Acetaminophen 500 MG TAB PO SCH ×2 (15:45→22:00)
[2019-06-09] MEDS: traZODone HCl 50 MG TAB PO SCH (20:51)
[2019-06-09] MEDS: Aspirin 81 mg Enteric Coated Tablet PO SCH (20:51)
[2019-06-09] MEDS: Mometasone/Formoterol 120 PUFF INHALER INH SCH (21:51)
[2019-06-10] MEDS: Acetaminophen 500 MG TAB PO SCH ×3 (00:22→15:58)
[2019-06-10 05:21] LABS: Hemoglobin 9.9 g/dL (12.0-16.0); Mean Corpuscular HGB CONC 33.2 g/dL (32.0-36.0); Mean Corpuscular Hemoglobin 31.4 pg (27.0-31.0); Mean Corpuscular Volume 94.5 fL (78.0-98.0); Mean Platelet Volume 6.9 fL (7.4-10.4); Platelet Count 251 thou/uL (130-400); RBC Distribution Width 11.9 % (11.5-14.5); Red Blood Cell (RBC) Count 3.15 mill/uL (4.20-5.40); White Blood Cell (WBC) Count 11.8 thou/uL (4.8-10.8)
[2019-06-10] MEDS: Mometasone/Formoterol 120 PUFF INHALER INH SCH ×2 (07:30→19:53)
[2019-06-10] MEDS: Polyethylene Glycol 3350 17 GM Packet PO SCH (09:13)
[2019-06-10] MEDS: Senokot S 8.6-50 MG TAB PO SCH ×2 (09:13→20:45)
[2019-06-10] MEDS: Donepezil HCl 10 MG TAB PO SCH (09:13)
[2019-06-10] MEDS: DULoxetine 30 MG CAP PO SCH (09:13)
[2019-06-10] MEDS: Famotidine 20 MG TAB PO SCH ×2 (09:13→20:45)
[2019-06-10] MEDS: Aspirin 81 mg Enteric Coated Tablet PO SCH ×2 (09:13→20:44)
--- NOTE | 2019-06-10 18:00 | PRG ---
DATE OF SERVICE: 06/10/2019 SUBJECTIVE: Ms. Karimi is a 79-year-old female, who has a history of dementia. She was living in a care home, status post ground level fall. She sustained left hip fracture. She underwent ORIF of left hip fracture. Postop day 2, the patient reports she has been doing good. Pain is well controlled. She tolerated her regular diet. Her vital signs have been stable. OBJECTIVE: GENERAL: The patient is lying in bed comfortable with no acute respiratory distress. VITAL SIGNS: Today temperature 99, heart rate 92, respiratory rate 16, O2 saturation 97% on room air, and blood pressure 119/53. LUNGS: Clear bilaterally. HEART: Regular rate and rhythm. ABDOMEN: Soft and nondistended. EXTREMITIES: Neurovascularly intact x4. Postop dressing dry, clean, and intact. NEUROLOGY: No focal neurology deficits. ASSESSMENT: 1. Status post ground level fall. 2. Left hip fracture, status post open reduction and internal fixation of left hip fracture postop day 2. 3. Dementia. PLAN: The patient will continue working with PT/OT. Continue DVT prophylaxis. Continue supportive care. The patient's placement status is waiting for insurance [employer] authorization before the patient can go to residential home facility. Anticipate it to be Thursday or next Thursday. The patient was seen and evaluated with Dr. Rabago on round this morning. Job ID: [id number]
[2019-06-10] MEDS: traZODone HCl 50 MG TAB PO SCH (20:44)
[2019-06-11] MEDS: Acetaminophen 500 MG TAB PO SCH ×4 (00:15→23:51)
[2019-06-11] MEDS: Famotidine 20 MG TAB PO SCH ×2 (08:07→21:04)
[2019-06-11] MEDS: DULoxetine 30 MG CAP PO SCH (08:07)
[2019-06-11] MEDS: Polyethylene Glycol 3350 17 GM Packet PO SCH (08:07)
[2019-06-11] MEDS: Aspirin 81 mg Enteric Coated Tablet PO SCH ×2 (08:07→21:04)
[2019-06-11] MEDS: Donepezil HCl 10 MG TAB PO SCH (08:08)
[2019-06-11] MEDS: Senokot S 8.6-50 MG TAB PO SCH ×2 (08:08→21:04)
[2019-06-11] MEDS: Mometasone/Formoterol 120 PUFF INHALER INH SCH ×2 (08:19→20:56)
--- NOTE | 2019-06-11 13:56 | PRG ---
DATE OF SERVICE: 06/11/2019 SUBJECTIVE: The patient is currently on the surgical floor. She is hospital day 4, postop day 3, status post ground level fall when she sustained a left hip fracture. She has undergone left hip hemiarthroplasty. She has tolerated that well. She has begun working with physical and occupational therapy, and she is currently awaiting placement. She is tolerating a diet, her bowel function has returned, and her pain is controlled. OBJECTIVE: VITAL SIGNS: Temperature is 97.1, heart rate 79, blood pressure 123/58, respirations 18, and oxygen saturation is 96% on room air. GENERAL: The patient is currently asleep at the time of my visit. She would open her eyes to verbal stimuli. She does have significant dementia and will follow basic commands. HEENT: Unremarkable. LUNGS: Clear to auscultation bilaterally with moderate inspiratory and expiratory effort. HEART: Regular rate and rhythm. ABDOMEN: Soft, flat, and nontender with active bowel sounds. EXTREMITIES: Neurovascularly intact x4. Postop dressing is clean, dry, and intact. DIAGNOSTIC STUDIES: There are no labs or radiographs to review this morning. ASSESSMENT: 1. Status post ground level fall. 2. Status post left hip hemiarthroplasty for left hip fracture, postop day 3. 3. Dementia. PLAN: Plan will be to continue supportive care, physical and occupational therapy, and await final placement decision. Most likely, the patient will be able to be discharged to a long term facility on Thursday or Thursday due to insurance and the weekend. Job ID: [id number]
[2019-06-11] MEDS: traZODone HCl 50 MG TAB PO SCH (21:04)
[2019-06-12] MEDS: Famotidine 20 MG TAB PO SCH ×2 (08:13→20:06)
[2019-06-12] MEDS: Polyethylene Glycol 3350 17 GM Packet PO SCH (08:13)
[2019-06-12] MEDS: DULoxetine 30 MG CAP PO SCH (08:13)
[2019-06-12] MEDS: Acetaminophen 500 MG TAB PO SCH ×2 (08:13→16:20)
[2019-06-12] MEDS: Donepezil HCl 10 MG TAB PO SCH (08:13)
[2019-06-12] MEDS: Aspirin 81 mg Enteric Coated Tablet PO SCH ×2 (08:13→20:05)
[2019-06-12] MEDS: Senokot S 8.6-50 MG TAB PO SCH ×2 (08:14→20:05)
[2019-06-12] MEDS: Mometasone/Formoterol 120 PUFF INHALER INH SCH ×2 (10:30→19:17)
--- NOTE | 2019-06-12 18:02 | PRG ---
DATE OF SERVICE: SUBJECTIVE: The patient remains on the surgical floor. The patient is postop day #4, status post ground level fall when she sustained a left hip fracture. The patient had a left hip hemiarthroplasty. The patient's pain is well controlled at this time. The patient continues to tolerate a regular diet. OBJECTIVE: VITAL SIGNS: Temperature 97.1, pulse 79, respirations 16, SpO2 of 96% on room air, blood pressure 140/63. GENERAL: The patient is awake, alert, in no distress. The patient with dementia and currently at her baseline. HEENT: Unremarkable. LUNGS: Good inspiratory and expiratory effort. CARDIAC: Regular rate and regular rhythm. ABDOMEN: Soft, nontender, nondistended. EXTREMITIES: Neurovascularly intact x4. Postop dressing clean, dry, and intact to left hip. LABORATORY DATA: There is no labs to evaluate today. ASSESSMENT: 1. Status post ground level fall. 2. Status post left hip hemiarthroplasty postop day #4. 3. History of dementia. PLAN: Continue supportive care. Continue to have Physical and Occupational Therapy work with the patient. The patient is pending placement most likely to [facility] facility. The patient is ready for discharge at this time. The patient was evaluated by Dr. Rabago during morning rounds. Job ID: [id number]
[2019-06-12] MEDS: traZODone HCl 50 MG TAB PO SCH (20:05)
[2019-06-13] MEDS: Acetaminophen 500 MG TAB PO SCH ×3 (00:36→16:27)
--- NOTE | 2019-06-13 01:03 | PRG ---
DATE OF SERVICE: 06/13/2019 SUBJECTIVE: Patient remains on the surgical floor, she is hospital day 5, postop day 4, status post ground level fall in which she sustained a left hip fracture. She underwent left hip hemiarthroplasty and she has been working with Physical and Occupational Therapy albeit slowly due to her advanced dementia. The patient is tolerating a diet. Her bowel function has returned, her pain is controlled. The patient reports no issues during the day. She, again, is working with Physical and Occupational Therapy, albeit slowly, but she is making forward progress. OBJECTIVE: VITAL SIGNS: Stable. The patient is afebrile. GENERAL: The patient is resting comfortably in bed. She appears in no distress. I did not wake her. ASSESSMENT/PLAN: 1. Status post ground level fall. 2. Status post left hip hemiarthroplasty postop day 4. 3. Dementia. PLAN: Plan will be to continue supportive care. Await final placement decision. Job ID: [id number]
[2019-06-13] MEDS: Mometasone/Formoterol 120 PUFF INHALER INH SCH (09:01)
[2019-06-13] MEDS: Polyethylene Glycol 3350 17 GM Packet PO SCH (09:26)
[2019-06-13] MEDS: Aspirin 81 mg Enteric Coated Tablet PO SCH (09:26)
[2019-06-13] MEDS: DULoxetine 30 MG CAP PO SCH (09:26)
[2019-06-13] MEDS: Senokot S 8.6-50 MG TAB PO SCH (09:26)
[2019-06-13] MEDS: Donepezil HCl 10 MG TAB PO SCH (09:27)
[2019-06-13] MEDS: Famotidine 20 MG TAB PO SCH (09:27)
--- NOTE | 2019-06-13 14:35 | PQF ---
DELROY MAYES AMY [id number] [facility] 3318 [id number] CLINICAL DOCUMENTATION IMPROVEMENT CLARIFICATION FORM: ICD-10 Updated PLEASE DO AN ADDENDUM TO THE PROGRESS NOTE WITH ANY DOCUMENTATION UPDATES OR ADDITIONS AND CARRY THROUGH TO DC SUMMARY. THANK YOU. Date: , 06/14/19 ATTN: PAYAL MARINAYIDKID-[id number], SIDRA WISEMAN Please exercise your independent, professional judgment in responding to the clarification form. Clinical indicators are provided on the bottom of this form for your review. Please check appropriate box(s): [ ] Protein Calorie Malnutrition: [ ] Mild [ ] Moderate [ ] Severe [ ] Other Malnutrition (please specify) __ [ ] Cachexia [ ] Other diagnosis [ X ] Unable to determine In addition, please specify: Present on Admission (POA): [ X] Yes [ ] No [ ] Unable to determine CLINICAL INDICATORS - SIGNS / SYMPTOMS / LABS / RESULTS AND LOCATION IN MR 06/08 RD: NUTRITION DIAGNOSIS - MALNUTRITION EVIDENCED BY -FAILURE TO THRIVE, SEVERE BUCCAL FAT WASTING, MODERATE TRICEP FAT WASTING, MODERATED THIGH WASTING, MODERATE MUSCLE WASTING OF TEMPORAL AND PATELLAR REGIONS SUGGESTIVE OF MALNUTRITION. 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) RECOMMENDED ENSURE ENLIVE PRN 06/08 Moderate Malnutrition (in acute illness) Energy Intake: <75% of estimated energy requirement for > 7 days Weight Loss: 1-2%/1 week; 5%/ 1 month; 7.5%/3 months Other: mild body fat loss; mild muscle mass loss; mild fluid accumulation; Severe Malnutrition (in acute illness) Energy Intake: < 50% of estimated energy requirement for > 5 days Weight Loss: >1-2%/1 week; >5%/1 month; >7.5%/3 months Other: moderate body fat loss; moderate muscle mass loss; moderate- severe fluid accumulation; measurably reduced quantitative analyst marketing strength Moderate Malnutrition (in chronic illness) Energy Intake: <75% of estimated energy requirement for >1 month Weight Loss: 5%/1 month; 7.5%/3 months; 10%/6 months; 20%/1 year Other: mild body fat loss; mild muscle mass loss; mild fluid accumulation Severe Malnutrition (in chronic illness) Energy Intake: <75% of estimated energy requirement for >1 month Weight Loss: >5%/1 month; >7.5%/3 months; >10%/6 months; >20%/1 year Other: severe body fat loss; severe muscle mass loss; severe fluid accumulation ; measurably reduced quantitative analyst marketing strength THANK YOU! JUAN (This form is maintained as a part of the permanent medical record) 2014 [employer] All Rights Reserved WOODY [email or web address] [phone] [email or web address]
--- NOTE | 2019-06-13 15:49 | PRG ---
DATE OF SERVICE: 06/13/2019 This is Marva Mathur PA-C dictating a report for Dr. Rabago. SUBJECTIVE: The patient was seen this morning, sitting up in bed with no signs of acute distress. She reported her pain is well controlled and she has been cooperative. She is tolerating her diet and working with Physical and Occupational Therapy. OBJECTIVE: VITAL SIGNS: Temperature 97.7, pulse 91, respirations 20, oxygen saturation 97% on room air, and blood pressure 134/61. GENERAL: Well-appearing, elderly female, sitting up in bed with no signs of acute distress. PULMONARY: Equal chest rise and fall. Clear breath sounds bilaterally. No signs of acute respiratory distress. CARDIAC: Regular rate and rhythm. No murmurs, gallops, or rubs. GI: Abdomen is soft, nontender, and nondistended. EXTREMITIES: 2+ pulses in all extremities. Gross motor and sensation are intact. No significant swelling noted. NEUROLOGIC: GCS is 14, - 1 for verbal. LABORATORY FINDINGS: There are no new laboratory findings to discuss. DIAGNOSTIC FINDINGS: There are no new diagnostic findings to discuss. ASSESSMENT: 1. Status post unwitnessed ground level fall. 2. Left femoral neck fracture, status post repair. 3. History of dementia, multiple recent falls, and failure to thrive. PLAN: Continue current home medications, diet, and pain regimen. Continue physical and occupational therapy as well as supportive care. The patient is pending discharge to a [facility] facility and is the same facility that she lived in before, but she needs insurance authorization for a [facility] part. She is ready for discharge at this time. The patient was seen and examined by Dr. Rabago and myself this morning during rounds. Job ID: [id number]
[2019-06-13 16:18] VITALS: BP 141/62; TEMP 97.8
--- NOTE | 2019-06-13 17:05 | DIS ---
DATE OF ADMISSION: 06/07/2019 DATE OF DISCHARGE: 06/13/2019 ADMISSION DIAGNOSES: Unwitnessed ground level fall and left femoral neck fracture. DISCHARGE DIAGNOSES: Unwitnessed ground level fall and left femoral neck fracture. CONSULTING PHYSICIAN: Dr. Archer of Orthopedic Surgery. PROCEDURES: The patient went to the OR on June 08, 2019, and had a left hip hemiarthroplasty. HOSPITAL COURSE: The patient is a 79-year-old female, who had an unwitnessed ground level fall at her nursing facility. She was found to have a left femoral neck fracture for which she went to the OR on June 08, 2019. She had a left hip hemiarthroplasty by Dr. Archer of Orthopedic Surgery. Postoperatively, the patient worked with Physical and Occupational Therapy. She was restarted on home medication. She was tolerating regular diet and voiding without difficulty. She was ultimately [facility]. DISCHARGE DISPOSITION: [facility] facility. DISCHARGE CONDITION: Satisfactory. PHYSICAL EXAMINATION: VITAL SIGNS: Temperature 97.8, pulse 87, respirations 18, oxygen saturation 96% on room air, and blood pressure 141/62. GENERAL: Well-appearing elderly female, sitting up in bed with no signs of acute distress. PULMONARY: Equal chest rise and fall. Clear breath sounds bilaterally. No signs of acute respiratory distress. CARDIAC: Regular rate and rhythm. No murmurs, gallops, or rubs. GASTROINTESTINAL: Soft, nontender, nondistended. EXTREMITIES: 2+ pulses in all extremities. Gross motor and sensation are intact. NEUROLOGIC: GCS is 14, -1 for verbal, this is her baseline. DISCHARGE INSTRUCTIONS: The [facility] a [facility] facility. Activity as tolerated. She is weightbearing as tolerated in all extremities. She has a regular diet. Occupational and Physical Therapy. She will receive a wheelchair, walker and incentive spirometry. DISCHARGE MEDICATIONS: Include; 1. Tylenol. 2. Aspirin. 3. Symbicort. 4. Aricept. 5. Duloxetine. 6. Pepcid. 7. Gabapentin. 8. DuoNeb. 9. Melatonin. 10. Seroquel. 11. Trazodone. FOLLOWUP APPOINTMENTS: The patient will follow up with Dr. Archer in [facility]. There is no need for followup with Trauma Clinic. This is a summary of the patient's hospitalization. For full details, please see her medical record in its entirety. Job ID: [id number]
== END 2019-06-13 19:14 | DRG 470 ==
LOC: ERS 20:10 → SJJU 23:02 → SURG A 06-09 12:20
PROVIDERS: ADMIT Specialist; ATTEND Specialist
PROC: 0SRS0JA Replacement of Left Hip Joint, Femoral Surface with Synthetic Substitute, Uncemented, Open Approach (ICD-10-PCS; principal; 2019-06-08)
DX: S72.002A Fracture of unspecified part of neck of left femur, initial encounter for closed fracture (principal); Z68.1 Body mass index [BMI] 19.9 or less, adult; R62.7 Adult failure to thrive; G30.9 Alzheimer's disease, unspecified; F02.80 Dementia in other diseases classified elsewhere, unspecified severity, without behavioral disturbance, psychotic disturbance, mood disturbance, and anxiety; F17.210 Nicotine dependence, cigarettes, uncomplicated; W18.39XA Other fall on same level, initial encounter; Z90.710 Acquired absence of both cervix and uterus
CPT/HCPCS: 36415; 72170; 72192; 80048; 82533; 85025; 85027; 86850; 86900; 86901; 93005; 93010; 99285; G0390; J0131; J0690; J1100; J1885; J2001; J2270; J2405; J2704; J3010

== ENCOUNTER 2019-06-16 10:42 | Inpatient (IN) | payer MEDICARE ==
[2019-06-16 11:25] LABS: Bacteria/HPF None Seen HPF (None Seen); Bilirubin Negative (Negative); Blood, Urine 1+ (Negative); Clarity Turbid (Clear); Glucose, Urine (Dipstick) Normal (Negative); Leukocyte 250 Leu/uL (Negative); Nitrite Negative (Negative); Protein, Urine (Dipstick) 20 mg/dL (Neg-Trace); RBC/HPF Greater than 50 HPF (0-3); Squamous Epithelial 0-3 HPF (0-3); Urobilinogen Normal mg/dL (Less than 2); WBC/HPF Greater than 50 HPF (0-3)
[2019-06-16 11:49] LABS: ALT (SGPT) Less than 7 U/L (8-55); AST (SGOT) 19 U/L (5-34); Albumin 3.2 g/dL (3.4-4.8); Alkaline Phosphatase 99 U/L (40-110); Anion Gap 13 mmol/L (10-20); BUN (Urea Nitrogen) 62 mg/dL (9.8-20.1); Bilirubin, Total 0.6 mg/dL (0.2-1.2); CK (CPK) 46 U/L (29-168); Calc. Creatinine Clearance 0 mL/min (70-130); Calcium 8.7 mg/dL (7.8-10.44); Carbon Dioxide 25 mmol/L (23-31); Chloride 100 mmol/L (98-107); Estimated GFR-MDRD 38; Globulin 3.3 g/dL (2.4-3.5); Glucose 124 mg/dL (83-110); Lipase 9 U/L (8-78); Potassium 4.2 mmol/L (3.5-5.1); Protein, Total 6.5 g/dL (6.0-8.3); Sodium 134 mmol/L (136-145)
--- NOTE | 2019-06-16 12:27 | CT ---
CT abdomen and pelvis with IV contrast HISTORY: Abdominal pain. FINDINGS: Emphysematous changes at the lung bases. Small hiatal hernia and gastroesophageal reflux. N o evidence of bowel obstruction. Postoperative changes of the bowel in the left upper quadrant. Prominent calcification throughout the arterial structures with multilevel significant stenoses. Mild fusiform ectasia of the upper abdominal aorta. Recent postoperative changes of the left hip with small amount of residual gas in the adjacent soft t issues. Mild dilatation of each renal collecting system and ureter. The urinary bladder measures up to 21.1 c m length on the sagittal images. IMPRESSION: Severe urinary retention, leading to mild bilateral hydronephrosis. Small hiatal hernia. No evidence of bowel obstruction. Severe atherosclerosis. Multilevel aortic stenosis.
[2019-06-16] MEDS ORDERED: Vancomycin HCl 750 MG in Sodium Chloride 0.9% 250 ML 250 ML IVPB SCH (13:15)
[2019-06-16 13:16] LABS: #Eosinphils 0.2 thou/uL (0.0-0.7); #Lymphocytes 1.2 thou/uL (1.20-3.40); #Monocytes 1.2 thou/uL (0.11-0.59); %Basophils 0.1 % (0.0-1.0); %Lymphocytes 6.7 % (21.0-51.0); %Monocytes 6.5 % (0.0-10.0); %Neutrophils 85.6 % (42.0-75.0); Hemoglobin 9.7 g/dL (12.0-16.0); Mean Corpuscular HGB CONC 32.2 g/dL (32.0-36.0); Mean Corpuscular Volume 96.1 fL (78.0-98.0); Mean Platelet Volume 6.7 fL (7.4-10.4); Platelet Count 478 thou/uL (130-400); RBC Distribution Width 12.9 % (11.5-14.5); Red Blood Cell (RBC) Count 3.14 mill/uL (4.20-5.40); White Blood Cell (WBC) Count 17.6 thou/uL (4.8-10.8)
[2019-06-16] MEDS ORDERED: cefTRIAXone\\ROCEPHIN 1 GM VIAL ONE (13:44)
[2019-06-16] MEDS ORDERED: Iopamidol-370 76% 500 ML 1 ML ONE (14:53)
[2019-06-16] MEDS ORDERED: Ondansetron PF 4 MG/2 ML Vial IVP PRN ×2 (15:38→16:41)
[2019-06-16] MEDS ORDERED: Ondansetron ODT 4 MG TAB SL PRN (15:38)
[2019-06-16] MEDS ORDERED: Acetaminophen 325 MG TAB PO PRN (16:41)
[2019-06-16] MEDS ORDERED: Ondansetron ODT 4 MG TAB PO PRN (16:41)
[2019-06-16] MEDS ORDERED: Acetaminophen 650 MG Suppository PR PRN (16:41)
--- NOTE | 2019-06-16 16:50 | PDOC.HHP ---
Hospitalist HPI - History of Present Illness "I have an infection" History of Present Illness: Mrs. Karimi is a pleasant 79 year old woman with known dementia who states she was brought to the hospital due to an infection. She denies any complaints. She was transferred here from [facility] and according to EMS it was due to abdominal pain/distention. Patient received Fentanyl en route to the hospital. She denies any pain at present. She was admitted to [facility] on 06/13/2019 due to dehydration and malnutrition as well as left femur fracture. ED Course: In the ED she had labs done showing an elevated WCC of 17.6, Hgb 9.7 and platelet count of 478, Neutrophils 85.6%. Lactic acid normal at 1.7. BUN was 62, Creatinine 1.36 and GFR was 38, significantly altered from baseline. UA showed turbid urine with 250 leukocytes, 1+ blood, >50 WBC, >[address] A/P showed severe urinary retention with mild bilateral hydronephrosis. Also a small hiatal hernia and severe atherosclerosis with multilevel aortic stenosis. She has been started on IV Abx with Vancomycin and Rocephin. Consult placed to Urology and lucio catheter placed in the ED. Per ED note 650mL drained upon lucio placement. Hospitalist ROS - Review of Systems ROS unobtainable: due to mental status (underlying dementia, limited ability to obtain ROS denies any complaints.) Constitutional: denies: fever, chills, sweats, weakness, malaise, other Eyes: denies: pain, vision change, conjunctivae inflammation, eyelid inflammation, redness, other ENT: denies: ear pain, ear discharge, nose pain, nose discharge, nose congestion , mouth pain, mouth swelling, throat pain, throat swelling, other Respiratory: denies: cough, dry, shortness of breath, hemoptysis, SOB with excertion, pleuritic pain, sputum, wheezing, other Cardiovascular: denies: chest pain, palpitations, orthopnea, paroxysmal noc. dyspnea, edema, light headedness, other Gastrointestinal: denies: nausea, vomiting, abdominal pain, diarrhea, constipation, melena, hematochezia, other Genitourinary: denies: dysuria, frequency, incontinence, hematuria, retention, other Musculoskeletal: denies: neck pain, shoulder pain, arm pain, back pain, hand pain, leg pain, foot pain, other Skin: denies: rash, lesions, shaquille, bruising, other Neurological: denies: weakness, numbness, incoordination, change in speech, confusion, seizures, other Other: Possibly poor historian, given underlying dementia, but aware of having infection and knows where she is Able to follow commands. Denies any complaints. Hospitalist History - Past Medical History Source: [facility] record Gastrointestinal: reports: Other (Malnutrition) Psych: reports: Anxiety, Other (Alzheimer's dementia) Musculoskeletal: reports: Other (multiple falls left hip dislocation with femoral neck and acetabular fractures 01/2019) - Past Surgical History Past Surgical History: reports: Hysterectomy, Other (left hip reduction) - Social History Smoking Status: Former smoker Alcohol: reports: None Drugs: reports: none Living Situation: Half-Way - Exam General Appearance: NAD General - other findings: cachectic Eye: PERRL, anicteric sclera ENT: normocephalic atraumatic, no oropharyngeal lesions, moist mucosa Neck: supple, symmetric, no JVD, no lymphadenopathy Heart: RRR, no murmur, normal peripheral pulses Respiratory: CTAB, no wheezes, no rales, no ronchi, normal chest expansion Gastrointestinal: soft, non-tender, non-distended, normal bowel sounds, tender to palpation (suprapubic region) Extremities: no cyanosis, no clubbing, no edema Skin: normal turgor, no lesions, no rashes Neurological: cranial nerve grossly intact, normal sensation to touch Musculoskeletal: generalized weakness Musculoskeletal - other findings: muscle wasting Psychiatric: oriented to person, oriented to place Hospitalist Results - Labs Result Diagrams: 06/17/19 05:47 06/17/19 05:47 Lab results: WBC 17.6 thou/uL (4.8-10.8) H 06/16/19 13:04 Hgb 9.7 g/dL (12.0-16.0) L 06/16/19 13:04 Hct 30.2 % (36.0-47.0) L 06/16/19 13:04 MCV 96.1 fL (78.0-98.0) 06/16/19 13:04 Plt Count 478 thou/uL (130-400) H 06/16/19 13:04 Neutrophils % 85.6 % (42.0-75.0) H 06/16/19 13:04 Sodium 134 mmol/L (136-145) L 06/16/19 11:10 Potassium 4.2 mmol/L (3.5-5.1) 06/16/19 11:10 Chloride 100 mmol/L (98-107) 06/16/19 11:10 Carbon Dioxide 25 mmol/L (23-31) 06/16/19 11:10 BUN 62 mg/dL (9.8-20.1) H 06/16/19 11:10 Creatinine 1.36 mg/dL (0.6-1.1) H 06/16/19 11:10 Glucose 124 mg/dL (83-110) H 06/16/19 11:10 Lactic Acid 1.7 mmol/L (0.5-2.2) 06/16/19 13:04 Calcium 8.7 mg/dL (7.8-10.44) 06/16/19 11:10 Total Bilirubin 0.6 mg/dL (0.2-1.2) 06/16/19 11:10 AST 19 U/L (5-34) 06/16/19 11:10 ALT Less than 7 U/L (8-55) L 06/16/19 11:10 Alkaline Phosphatase 99 U/L (40-110) 06/16/19 11:10 Creatine Kinase 46 U/L (29-168) 06/16/19 11:10 Serum Total Protein 6.5 g/dL (6.0-8.3) 06/16/19 11:10 Albumin 3.2 g/dL (3.4-4.8) L 06/16/19 11:10 Lipase 9 U/L (8-78) 06/16/19 11:10 Urine Ketones Negative mg/dL (Negative) 06/16/19 11:00 Urine Blood 1+ (Negative) A 06/16/19 11:00 Urine Nitrite Negative (Negative) 06/16/19 11:00 Ur Leukocyte Esterase 250 Erik/uL (Negative) A 06/16/19 11:00 Urine RBC Greater than 50 HPF (0-3) A 06/16/19 11:00 Urine WBC Greater than 50 HPF (0-3) A 06/16/19 11:00 Ur Squamous Epith Cells 0-3 HPF (0-3) 12/05/19 11:00 Urine Bacteria None Seen HPF (None Seen) 06/16/19 11:00 - Radiology Interpretation CT scan - abdomen Status: report reviewed by me Hospitalist H&P A/P - Problem (1) Urinary retention Code(s): R33.9 - RETENTION OF URINE, UNSPECIFIED Status: Acute (2) UTI (urinary tract infection) Status: Acute (3) Failure to thrive in adult Status: Acute (4) Physical deconditioning Code(s): R53.81 - OTHER MALAISE Status: Acute (5) Dementia Code(s): F03.90 - UNSPECIFIED DEMENTIA WITHOUT BEHAVIORAL DISTURBANCE Status: Chronic (6) Protein-calorie malnutrition, moderate Code(s): E44.0 - MODERATE PROTEIN-CALORIE MALNUTRITION Status: Chronic (7) JAGUAR (acute kidney injury) Code(s): N17.9 - ACUTE KIDNEY FAILURE, UNSPECIFIED Status: Acute (8) Constipation Code(s): K59.00 - CONSTIPATION, UNSPECIFIED Status: Chronic (9) Anemia Code(s): D64.9 - ANEMIA, UNSPECIFIED Status: Acute - Plan Plan: Some suprapubic discomfort on exam, no urine in lucio bag, apparently drained in ED. Will obtain bladder scan to ensure lucio doesnt need to be repositioned/ cleared. Urine culture pending. Will continue IV Abx, to be dose by pharmacy given JAGUAR. Gentle IV fluids. Check stool for occult blood. Senna/Miralax for constipation. Urology consultation placed by Dr. Earl. Consult placed to PT/OT and Electric Furnace Operator. CODE STATUS: FULL
[2019-06-16] MEDS ORDERED: Gabapentin 100 MG CAP PO PRN (17:08)
[2019-06-16] MEDS ORDERED: Polyethylene Glycol 3350 17 GM Packet PO SCH (18:15)
[2019-06-16] MEDS: Famotidine/PF 20 mg/2ml Vial SLOW IVP SCH (19:34)
[2019-06-16] MEDS: traZODone HCl 50 MG TAB PO SCH (19:34)
[2019-06-16] MEDS: Sodium Chloride 0.9% 1,000 ML IV SCH (19:34)
[2019-06-16] MEDS: Aspirin 81 mg Enteric Coated Tablet PO SCH (19:34)
[2019-06-16] MEDS: Mometasone/Formoterol 120 PUFF INHALER INH SCH (20:00)
[2019-06-17 06:11] LABS: #Basophils 0.1 thou/uL (0.0-0.2); #Eosinphils 0.5 thou/uL (0.0-0.7); #Lymphocytes 1.4 thou/uL (1.20-3.40); #Monocytes 0.7 thou/uL (0.11-0.59); #Neutrophils 7.3 thou/uL (1.40-6.50); %Basophils 0.6 % (0.0-1.0); %Eosinophils 5.1 % (0.0-10.0); %Neutrophils 73.3 % (42.0-75.0); Hemoglobin 7.9 g/dL (12.0-16.0); Mean Corpuscular Hemoglobin 31.8 pg (27.0-31.0); Mean Corpuscular Volume 96.3 fL (78.0-98.0); Mean Platelet Volume 6.5 fL (7.4-10.4); Platelet Count 403 thou/uL (130-400); RBC Distribution Width 12.9 % (11.5-14.5); White Blood Cell (WBC) Count 9.9 thou/uL (4.8-10.8)
[2019-06-17 06:32] LABS: Anion Gap 8 mmol/L (10-20); BUN (Urea Nitrogen) 33 mg/dL (9.8-20.1); Calc. Creatinine Clearance 50 mL/min (70-130); Calcium 7.8 mg/dL (7.8-10.44); Carbon Dioxide 27 mmol/L (23-31); Chloride 106 mmol/L (98-107); Estimated GFR-MDRD 81; Glucose 80 mg/dL (83-110); Potassium 3.5 mmol/L (3.5-5.1); Sodium 137 mmol/L (136-145)
[2019-06-17] MEDS: Mometasone/Formoterol 120 PUFF INHALER INH SCH ×2 (06:55→18:52)
--- NOTE | 2019-06-17 07:54 | CON ---
DATE OF CONSULTATION: 06/16/2019 HISTORY OF PRESENT ILLNESS: This is a 79-year-old white female, whom I was asked to see by the hospitalists. She was admitted from the emergency room. She was sent over from[facility]. She was recovering from a left hip surgical repair. I think that was just around Thanksgiving when that was done. She has some dementia. She is unable to give me any history. She is currently asleep and appears comfortable. Vital signs are stable. She came in with generalized abdominal pain and distended abdomen. A CAT scan showed a greatly distended bladder. Rojas catheter was inserted in the ER, clamped after 650 mL were drained. When she got up here, it was still clamped and I unclamped and she drained 2 L, looks like she probably had 2 L in her bladder based on her CAT scan, she had some bilateral hydro from it. I did not see any renal masses, any renal stones, any ureteral stones. I think her hydro is probably related to the distended bladder. I looked at her CT of her pelvis that was done when her hip was broken a week or so ago and she did not have a distended bladder at that point, so I think this is all just related to that. Her urinalysis showed white cells and red cells, it did not show any bacteria hopefully. Urine culture was set up through the ER. It appears she has already been started on Rocephin and also been given some vancomycin, I think both were done in the ER. Her white cell count was 17.6. Her hemoglobin was 9.7. Her creatinine was normal at 1.3; however, BUN was 62. It does not appear she has seen a urologist before. Looking through the notes from the nursing center, I guess some of that were related to the poly area supervisor in the transfer that she has also had constipation for a few days. Her history is really taken from prior admission. She has Alzheimer's. She has COPD. She has depression. It looks like she is an inpatient at a nursing facility. This was actually prior to her coming in with a hip fracture. ALLERGIES: SHE HAS NO KNOWN DRUG ALLERGIES. MEDICATIONS: Her medications are well documented. PAST SURGICAL HISTORY: She has had a hysterectomy. She has also had, on the 08 of June, it was roughly a week or so ago, a left femoral neck fracture and underwent a left hip hemiarthroplasty. PHYSICAL EXAMINATION: ABDOMEN: Soft, flat, nontender. No masses. PELVIC: There is no vaginal lesion. There is no pelvic mass. There is no urethral mass. : Catheter draining clear urine. IMPRESSION: Most likely, this is urinary retention, probably based on either pain medication or constipation. With the amount of urine that she has had in her bladder, which is probably over 2 L, she is going to need this catheter in for probably a week to 10 days. Hopefully, her bladder function will return. We will check her urine culture as it returns, I am not highly suspicious she has an infection as she has received some antibiotics already. I think her constipation should be addressed, I do not think she will void well and let the bowel start to work better and perhaps that can be looked at by the hospitalist during this admission. Check on her again tomorrow. Job ID: [id number]
[2019-06-17] MEDS: Aspirin 81 mg Enteric Coated Tablet PO SCH ×2 (08:52→19:44)
[2019-06-17] MEDS: Donepezil HCl 10 MG TAB PO SCH (08:52)
[2019-06-17] MEDS: DULoxetine 30 MG CAP PO SCH (08:52)
[2019-06-17] MEDS: Polyethylene Glycol 3350 17 GM Packet PO SCH ×2 (08:52→19:44)
[2019-06-17] MEDS: Sodium Chloride 0.9% 1,000 ML IV SCH (08:53)
[2019-06-17] MEDS ORDERED: FLU VACC TS2019-20(65YR UP)/PF 180 MCG/0.5 ML SYRINGE IM ONE (09:00)
[2019-06-17] MEDS: cefTRIAXone\\ROCEPHIN 1 GM in Sodium Chloride 0.9% 100 ML IVPB SCH (12:38)
--- NOTE | 2019-06-17 13:04 | PRG ---
DATE OF SERVICE: 06/17/2019 This patient has stable vital signs, good O2 saturation. She had good urine output. Urine culture is just showing less than 10 to the 4th of gram-negative karla. Her white count is now normal. Her creatinine has come down to 0.7. She is still on Rocephin. At this point in time, we recommend leaving this Rojas catheter in for probably 10 to 14 days. A voiding trial can be done back at the nursing center. I would not think she would need to be in the hospital too much longer. Her culture will be checked, I am sure, tomorrow by the hospitalist. I mean if she does have a bacteria, then she could be treated very short-term for that, but I do not think that I would recommend any long-term antibiotics for her with the indwelling catheter. I do not think I would treat her for more than 4 or 5 days with the antibiotic considering she has already been on 2 days now. I will sign off at this point in time. My recommendations then would be to have the nursing center do a voiding trial in 10 to 14 days, and if she is unable to urinate, contact me. I do think that she should not be discharged until her bowels are functioning well and she is no longer constipated. I think this has probably led to her retention. Job ID: [id number]
[2019-06-17 13:54] VITALS: BMI 19.1
[2019-06-17 14:44] LABS: Vancomycin, Random 3.5 ug/mL (See Comment)
[2019-06-17] MEDS: Vancomycin HCl 1 GM in Premix Bag 1 BAG IVPB SCH (16:02)
--- NOTE | 2019-06-17 18:33 | PDOC.HOSPP ---
- Subjective Encounter Date: 06/17/19 Encounter Time: 09:00 Subjective: Pt seen for followup re: UTI. Pt is poor historian, could not complete ROS. - Objective Vital Signs & Weight: Vital Signs (12 hours) Temp Pulse Resp BP Pulse Ox 06/17/19 16:00 97.9 F 75 18 105/58 L 100 06/17/19 08:00 100 06/17/19 07:55 97.3 F L 70 16 97/57 L 100 Weight Admit Weight 108 lb 0.424 oz Weight 108 lb 0.424 oz I&O: 06/16/19 06/17/19 06/18/19 06:59 06:59 06:59 Intake Total 1105 Output Total 1000 Balance 105 Result Diagrams: 06/17/19 05:47 06/17/19 05:47 Additional Labs: Labs and MARs reviewed by in Hospitalist ROS - Review of Systems Cardiovascular: denies: chest pain, palpitations, orthopnea, paroxysmal noc. dyspnea, edema, light headedness Gastrointestinal: denies: nausea, vomiting, abdominal pain, diarrhea, constipation, melena, hematochezia - Medication Medications: Active Medications Generic Name Dose Route Start Last Admin Trade Name Freq PRN Reason Stop Dose Admin Aspirin 81 mg 06/16/19 21:00 06/17/19 08:52 Ecotrin PO 81 mg BID MANUEL Administration Donepezil HCl 10 mg 06/17/19 09:00 06/17/19 08:52 Aricept PO 10 mg DAILY MANUEL Administration Duloxetine HCl 30 mg 06/17/19 09:00 06/17/19 08:52 Cymbalta PO 30 mg DAILY MANUEL Administration Famotidine 20 mg 06/16/19 21:00 06/16/19 19:34 Pepcid SLOW IVP 20 mg QPM MANUEL Administration Sodium Chloride 1,000 mls @ 65 mls/hr 06/16/19 16:45 06/17/19 08:53 Normal Saline 0.9% IV 1,000 mls .[id number] MANUEL Administration Ceftriaxone Sodium 1 gm/ 100 mls @ 200 mls/hr 06/17/19 13:30 06/17/19 12:38 Sodium Chloride IVPB 100 mls Q24HR MANUEL Administration Vancomycin HCl 1 gm/ Device 200 mls @ 200 mls/hr 06/17/19 16:00 06/17/19 16: 02 IVPB 200 mls 1600 MANUEL Administration Mometasone Furoate/Formoterol Fumar 2 puff 06/16/19 18:30 06/17/19 06:55 Dulera 100 Mcg/5 Mcg Inhaler INH 2 puff BID-RT MANUEL Administration Polyethylene Glycol 17 gm 06/17/19 09:00 06/17/19 08:52 Miralax PO 17 gm Q12HR MANUEL Administration Quetiapine Fumarate 25 mg 06/16/19 21:00 06/16/19 19:34 Seroquel PO 25 mg HS MANUEL Administration Trazodone HCl 100 mg 06/16/19 21:00 06/16/19 19:34 Desyrel PO 100 mg HS MANUEL Administration - Exam General Appearance: NAD Eye: anicteric sclera ENT: moist mucosa Neck: supple Heart: RRR Respiratory: CTAB Gastrointestinal: soft, non-tender Extremities: no clubbing Psychiatric: normal affect, normal behavior Hosp A/P (1) UTI (urinary tract infection) Status: Acute (2) Urinary retention Code(s): R33.9 - RETENTION OF URINE, UNSPECIFIED Status: Acute (3) Constipation Code(s): K59.00 - CONSTIPATION, UNSPECIFIED Status: Chronic (4) Dementia Code(s): F03.90 - UNSPECIFIED DEMENTIA WITHOUT BEHAVIORAL DISTURBANCE Status: Chronic (5) Protein-calorie malnutrition, moderate Code(s): E44.0 - MODERATE PROTEIN-CALORIE MALNUTRITION Status: Chronic - Plan continue antibiotics, out of bed/ambulate Continue IV ceftriaxone, follow urine culture. s/p lilian Rojas urology service input. Continue Miralax.
[2019-06-17] MEDS: traZODone HCl 50 MG TAB PO SCH (19:44)
[2019-06-17] MEDS: Famotidine/PF 20 mg/2ml Vial SLOW IVP SCH (19:44)
[2019-06-18] MEDS: Sodium Chloride 0.9% 1,000 ML IV SCH ×2 (01:16→14:05)
[2019-06-18] MEDS: Mometasone/Formoterol 120 PUFF INHALER INH SCH ×2 (06:52→18:49)
[2019-06-18] MEDS: Donepezil HCl 10 MG TAB PO SCH (09:27)
[2019-06-18] MEDS: DULoxetine 30 MG CAP PO SCH (09:27)
[2019-06-18] MEDS: Polyethylene Glycol 3350 17 GM Packet PO SCH ×2 (09:27→20:18)
[2019-06-18] MEDS: Aspirin 81 mg Enteric Coated Tablet PO SCH ×2 (09:27→20:17)
[2019-06-18] MEDS: cefTRIAXone\\ROCEPHIN 1 GM in Sodium Chloride 0.9% 100 ML IVPB SCH (14:06)
[2019-06-18] MEDS: Vancomycin HCl 1 GM in Premix Bag 1 BAG IVPB SCH (16:02)
--- NOTE | 2019-06-18 16:51 | PDOC.HOSPP ---
- Subjective Encounter Date: 06/18/19 Encounter Time: 10:20 Subjective: Pt seen for followup re: UTI. More alert today, answering questions. Denies any complaints. - Objective Vital Signs & Weight: Vital Signs (12 hours) Temp Pulse Resp BP Pulse Ox 06/18/19 11:21 97.8 F 71 18 105/56 L 96 06/18/19 09:30 100 06/18/19 08:29 97.3 F L 70 20 122/64 100 06/18/19 06:52 70 16 99 Weight Admit Weight 108 lb 0.424 oz Weight 108 lb 0.424 oz I&O: 06/17/19 06/18/19 06/19/19 06:59 06:59 06:59 Intake Total 1105 965 Output Total 1000 1250 Balance 105 -285 Result Diagrams: 06/17/19 05:47 06/17/19 05:47 Additional Labs: Labs and MARs reviewed by dc Hospitalist ROS - Review of Systems Cardiovascular: denies: chest pain, palpitations, orthopnea, paroxysmal noc. dyspnea, edema, light headedness Gastrointestinal: denies: nausea, vomiting, abdominal pain, diarrhea, constipation, melena, hematochezia - Medication Medications: Active Medications Generic Name Dose Route Start Last Admin Trade Name Freq PRN Reason Stop Dose Admin Aspirin 81 mg 06/16/19 21:00 06/18/19 09:27 Ecotrin PO 81 mg BID MANUEL Administration Donepezil HCl 10 mg 06/17/19 09:00 06/18/19 09:27 Aricept PO 10 mg DAILY MANUEL Administration Duloxetine HCl 30 mg 06/17/19 09:00 06/18/19 09:27 Cymbalta PO 30 mg DAILY MANUEL Administration Famotidine 20 mg 06/16/19 21:00 06/17/19 19:44 Pepcid SLOW IVP 20 mg QPM MANUEL Administration Sodium Chloride 1,000 mls @ 65 mls/hr 06/16/19 16:45 06/18/19 14:05 Normal Saline 0.9% IV 1,000 mls .[id number] MANUEL Administration Ceftriaxone Sodium 1 gm/ 100 mls @ 200 mls/hr 06/17/19 13:30 06/18/19 14:06 Sodium Chloride IVPB 100 mls Q24HR MANUEL Administration Vancomycin HCl 1 gm/ Device 200 mls @ 200 mls/hr 06/17/19 16:00 06/18/19 16: 02 IVPB 200 mls 1600 MANUEL Administration Mometasone Furoate/Formoterol Fumar 2 puff 06/16/19 18:30 06/18/19 06:52 Dulera 100 Mcg/5 Mcg Inhaler INH 2 puff BID-RT MANUEL Administration Polyethylene Glycol 17 gm 06/17/19 09:00 06/18/19 09:27 Miralax PO 17 gm Q12HR MANUEL Administration Quetiapine Fumarate 25 mg 06/16/19 21:00 06/17/19 19:44 Seroquel PO 25 mg HS MANUEL Administration Sodium Chloride 10 ml 06/16/19 16:41 06/18/19 09:27 Flush - Normal Saline IVF 10 ml Q12HR PRN Administration Saline Flush Trazodone HCl 100 mg 06/16/19 21:00 06/17/19 19:44 Desyrel PO 100 mg HS MANUEL Administration - Exam General Appearance: NAD Eye: anicteric sclera ENT: moist mucosa Neck: no carotid bruit Heart: RRR Respiratory: CTAB Gastrointestinal: soft, non-tender Extremities: no clubbing Psychiatric: normal affect, normal behavior Hosp A/P (1) UTI (urinary tract infection) Status: Acute (2) Urinary retention Code(s): R33.9 - RETENTION OF URINE, UNSPECIFIED Status: Acute (3) Constipation Code(s): K59.00 - CONSTIPATION, UNSPECIFIED Status: Chronic (4) Dementia Code(s): F03.90 - UNSPECIFIED DEMENTIA WITHOUT BEHAVIORAL DISTURBANCE Status: Chronic (5) Protein-calorie malnutrition, moderate Code(s): E44.0 - MODERATE PROTEIN-CALORIE MALNUTRITION Status: Chronic - Plan continue antibiotics, out of bed/ambulate Continue IV ceftriaxone, gram negative karla in curine culture. s/p Rojas Bowel regimen
[2019-06-18] MEDS: Famotidine/PF 20 mg/2ml Vial SLOW IVP SCH (20:22)
[2019-06-18] MEDS: Melatonin 3 MG TAB PO PRN (20:22)
[2019-06-18] MEDS: traZODone HCl 50 MG TAB PO SCH (20:24)
[2019-06-18] MEDS: Famotidine 20 MG TAB PO SCH (20:26)
[2019-06-18] MEDS ORDERED: Famotidine 20 MG TAB PO SCH (21:00)
[2019-06-19] MEDS: Mometasone/Formoterol 120 PUFF INHALER INH SCH ×2 (07:38→18:43)
[2019-06-19] MEDS: Sodium Chloride 0.9% 1,000 ML IV SCH (08:23)
[2019-06-19] MEDS: Famotidine 20 MG TAB PO SCH ×2 (08:23→20:31)
[2019-06-19] MEDS: Donepezil HCl 10 MG TAB PO SCH (08:24)
[2019-06-19] MEDS: Polyethylene Glycol 3350 17 GM Packet PO SCH ×2 (08:24→20:31)
[2019-06-19] MEDS: Aspirin 81 mg Enteric Coated Tablet PO SCH ×2 (08:24→20:30)
[2019-06-19] MEDS: DULoxetine 30 MG CAP PO SCH (08:24)
[2019-06-19] MEDS: cefTRIAXone\\ROCEPHIN 1 GM in Sodium Chloride 0.9% 100 ML IVPB SCH (12:43)
[2019-06-19 15:18] LABS: Vancomycin, Trough 7.7 ug/mL
[2019-06-19] MEDS: Vancomycin HCl 1 GM in Premix Bag 1 BAG IVPB SCH (16:21)
[2019-06-19] MEDS: Vancomycin HCl 750 MG in Sodium Chloride 0.9% 250 ML 250 ML IVPB SCH ×2 (17:32→17:44)
--- NOTE | 2019-06-19 17:39 | PDOC.HOSPP ---
- Subjective Encounter Date: 06/19/19 Encounter Time: 09:20 Subjective: Pt seen for followup re: urinary retention. denies any complaints. had bowel movement yesterday. - Objective Vital Signs & Weight: Vital Signs (12 hours) Temp Pulse Resp BP Pulse Ox 06/19/19 08:30 96 06/19/19 07:38 73 16 96 06/19/19 07:24 98.2 F 72 18 130/61 96 Weight Admit Weight 108 lb 0.424 oz Weight 108 lb 0.424 oz I&O: 06/18/19 06/19/19 06/20/19 06:59 06:59 06:59 Intake Total 965 2390 Output Total 1250 2550 Balance -285 -160 Result Diagrams: 06/17/19 05:47 06/17/19 05:47 Additional Labs: Labs and MARs reviewed by mt Hospitalist ROS - Review of Systems Cardiovascular: denies: chest pain, palpitations, orthopnea, paroxysmal noc. dyspnea, edema, light headedness Gastrointestinal: denies: nausea, vomiting, abdominal pain, diarrhea, constipation, melena, hematochezia - Medication Medications: Active Medications Generic Name Dose Route Start Last Admin Trade Name Freq PRN Reason Stop Dose Admin Aspirin 81 mg 06/16/19 21:00 06/19/19 08:24 Ecotrin PO 81 mg BID MANUEL Administration Donepezil HCl 10 mg 06/17/19 09:00 06/19/19 08:24 Aricept PO 10 mg DAILY MANUEL Administration Duloxetine HCl 30 mg 06/17/19 09:00 06/19/19 08:24 Cymbalta PO 30 mg DAILY MANUEL Administration Famotidine 20 mg 06/18/19 21:00 06/19/19 08:23 Pepcid PO 20 mg BID MANUEL Administration Sodium Chloride 1,000 mls @ 65 mls/hr 06/16/19 16:45 06/19/19 08:23 Normal Saline 0.9% IV 1,000 mls .[id number] MANUEL Administration Ceftriaxone Sodium 1 gm/ 100 mls @ 200 mls/hr 06/17/19 13:30 06/19/19 12:43 Sodium Chloride IVPB 100 mls Q24HR MANUEL Administration Vancomycin HCl 750 mg/ Sodium 250 mls @ 250 mls/hr 06/19/19 17:00 06/19/19 17 :32 Chloride IVPB 250 mls 0500,1700 MANUEL Administration Melatonin 3 mg 06/16/19 17:08 06/18/19 20:22 Melatonin PO 3 mg HS PRN Administration Insomnia Mometasone Furoate/Formoterol Fumar 2 puff 06/16/19 18:30 06/19/19 07:38 Dulera 100 Mcg/5 Mcg Inhaler INH 2 puff BID-RT MANUEL Administration Polyethylene Glycol 17 gm 06/17/19 09:00 06/19/19 08:24 Miralax PO 17 gm Q12HR MANUEL Administration Quetiapine Fumarate 25 mg 06/16/19 21:00 06/18/19 20:18 Seroquel PO 25 mg HS MANUEL Administration Sodium Chloride 10 ml 06/16/19 16:41 06/19/19 08:24 Flush - Normal Saline IVF 10 ml Q12HR PRN Administration Saline Flush Trazodone HCl 100 mg 06/16/19 21:00 06/18/19 20:24 Desyrel PO 100 mg HS MANUEL Administration - Exam General Appearance: NAD, awake alert Eye: anicteric sclera ENT: no oropharyngeal lesions, moist mucosa Neck: supple, symmetric Heart: RRR, no gallops Respiratory: CTAB Gastrointestinal: soft, non-tender, normal bowel sounds Skin: no rashes Psychiatric: normal affect, normal behavior Hosp A/P (1) Urinary retention Code(s): R33.9 - RETENTION OF URINE, UNSPECIFIED Status: Acute (2) Constipation Code(s): K59.00 - CONSTIPATION, UNSPECIFIED Status: Chronic (3) Dementia Code(s): F03.90 - UNSPECIFIED DEMENTIA WITHOUT BEHAVIORAL DISTURBANCE Status: Chronic (4) Protein-calorie malnutrition, moderate Code(s): E44.0 - MODERATE PROTEIN-CALORIE MALNUTRITION Status: Chronic (5) UTI (urinary tract infection) Status: Resolved - Plan out of bed/ambulate Discontinue ceftriaxone and observe. s/p Rojas Continue Miralax, add colace.
[2019-06-19] MEDS: Melatonin 3 MG TAB PO PRN (20:30)
[2019-06-19] MEDS: Docusate 100 MG CAP PO SCH (20:30)
[2019-06-19] MEDS: traZODone HCl 50 MG TAB PO SCH (20:31)
[2019-06-20] MEDS: Sodium Chloride 0.9% 1,000 ML IV SCH (01:13)
[2019-06-20] MEDS: Mometasone/Formoterol 120 PUFF INHALER INH SCH ×2 (07:44→18:43)
[2019-06-20] MEDS: Docusate 100 MG CAP PO SCH ×2 (08:09→20:36)
[2019-06-20] MEDS: Famotidine 20 MG TAB PO SCH ×2 (08:09→20:36)
[2019-06-20] MEDS: Polyethylene Glycol 3350 17 GM Packet PO SCH ×2 (08:09→20:38)
[2019-06-20] MEDS: DULoxetine 30 MG CAP PO SCH (08:09)
[2019-06-20] MEDS: Aspirin 81 mg Enteric Coated Tablet PO SCH ×2 (08:09→20:36)
[2019-06-20] MEDS: Donepezil HCl 10 MG TAB PO SCH (08:10)
[2019-06-20 10:57] LABS: Hemoglobin 8.6 g/dL (12.0-16.0); Mean Corpuscular HGB CONC 32.6 g/dL (32.0-36.0); Mean Corpuscular Hemoglobin 31.2 pg (27.0-31.0); Mean Corpuscular Volume 95.6 fL (78.0-98.0); Platelet Count 442 thou/uL (130-400); RBC Distribution Width 12.8 % (11.5-14.5); Red Blood Cell (RBC) Count 2.76 mill/uL (4.20-5.40); White Blood Cell (WBC) Count 9.8 thou/uL (4.8-10.8)
[2019-06-20 11:07] LABS: Albumin 2.5 g/dL (3.4-4.8); Anion Gap 8 mmol/L (10-20); BUN (Urea Nitrogen) 6 mg/dL (9.8-20.1); BUN/Creatinine Ratio 9.52; Calc. Creatinine Clearance 56 mL/min (70-130); Calcium 7.7 mg/dL (7.8-10.44); Carbon Dioxide 31 mmol/L (23-31); Chloride 102 mmol/L (98-107); Estimated GFR-MDRD Greater than 90; Glucose 134 mg/dL (83-110); Phosphorus 2.3 mg/dL (2.3-4.7); Sodium 138 mmol/L (136-145)
[2019-06-20 11:14] LABS: Potassium 2.8 mmol/L (3.5-5.1)
[2019-06-20] MEDS: Potassium Chloride 20 MEQ TAB PO SCH ×3 (13:04→17:31)
[2019-06-20] MEDS ORDERED: Magnesium Sulfate 3 GM in Sodium Chloride 0.9% 100 ML IVPB SCH (17:00)
--- NOTE | 2019-06-20 19:02 | PDOC.HOSPP ---
- Subjective Encounter Date: 06/20/19 Encounter Time: 14:59 Subjective: 79 y/o female with recent L hip fracture s/p repair , dementia and COPD admitted from long-term due to abdominal pain and distension. Found to have JAGUAR and urinary retention which have improved with lucio placement. No new problem. denied fever, nausea and vomiting. - Objective Vital Signs & Weight: Vital Signs (12 hours) Temp Pulse Resp BP Pulse Ox 06/20/19 18:43 77 16 95 06/20/19 08:29 98.0 F 77 18 126/55 L 95 Weight Admit Weight 108 lb 0.424 oz Weight 108 lb 0.424 oz I&O: 06/19/19 06/20/19 06/21/19 06:59 06:59 06:59 Intake Total 2390 2288 665 Output Total 2550 2250 850 Balance -160 38 -185 Result Diagrams: 06/20/19 10:18 06/20/19 10:18 Additional Labs: Accuchecks 06/20/19 06:42 POC Glucose 91 Hospitalist ROS - Medication Medications: Active Medications Generic Name Dose Route Start Last Admin Trade Name Freq PRN Reason Stop Dose Admin Aspirin 81 mg 06/16/19 21:00 06/20/19 08:09 Ecotrin PO 81 mg BID MANUEL Administration Docusate Sodium 100 mg 06/19/19 21:00 06/20/19 08:09 Colace PO 100 mg BID MANUEL Administration Donepezil HCl 10 mg 06/17/19 09:00 06/20/19 08:10 Aricept PO 10 mg DAILY MANUEL Administration Duloxetine HCl 30 mg 06/17/19 09:00 06/20/19 08:09 Cymbalta PO 30 mg DAILY MANUEL Administration Famotidine 20 mg 06/18/19 21:00 06/20/19 08:09 Pepcid PO 20 mg BID MANUEL Administration Magnesium Sulfate 3 gm/ Sodium 106 mls @ 100 mls/hr 06/20/19 17:00 06/20/19 17:31 Chloride IVPB 06/20/19 19:00 106 mls NOW MANUEL Administration Melatonin 3 mg 06/16/19 17:08 06/19/19 20:30 Melatonin PO 3 mg HS PRN Administration Insomnia Mometasone Furoate/Formoterol Fumar 2 puff 06/16/19 18:30 06/20/19 18:43 Dulera 100 Mcg/5 Mcg Inhaler INH 2 puff BID-RT MANUEL Administration Polyethylene Glycol 17 gm 06/17/19 09:00 06/20/19 08:09 Miralax PO 17 gm Q12HR AMNUEL Administration Potassium Chloride 40 meq 06/20/19 17:00 06/20/19 17:31 K-Dur PO 40 meq BID-WM MANUEL Administration Quetiapine Fumarate 25 mg 06/16/19 21:00 06/19/19 20:31 Seroquel PO 25 mg HS MANUEL Administration Sodium Chloride 10 ml 06/16/19 16:41 06/19/19 08:24 Flush - Normal Saline IVF 10 ml Q12HR PRN Administration Saline Flush Trazodone HCl 100 mg 06/16/19 21:00 06/19/19 20:31 Desyrel PO 100 mg HS MANUEL Administration - Exam General Appearance: awake alert Eye: anicteric sclera ENT: normocephalic atraumatic Neck: supple, symmetric, no JVD Heart: RRR Respiratory: no wheezes, no rales, no ronchi, normal chest expansion Gastrointestinal: soft, non-tender, non-distended Gastrointestinal - other findings: lucio catheter in place Extremities: no cyanosis, no edema Neurological: cranial nerve grossly intact, no focal deficits Psychiatric: A&O x 3 Hosp A/P (1) Hypokalemia Code(s): E87.6 - HYPOKALEMIA Status: Acute (2) Hypomagnesemia Code(s): E83.42 - HYPOMAGNESEMIA Status: Acute (3) Fracture of left hip requiring operative repair Code(s): S72.002A - FRACTURE OF UNSP PART OF NECK OF LEFT FEMUR, INIT Status: Acute (4) JAGUAR (acute kidney injury) Code(s): N17.9 - ACUTE KIDNEY FAILURE, UNSPECIFIED Status: Acute (5) Urinary retention Code(s): R33.9 - RETENTION OF URINE, UNSPECIFIED Status: Acute (6) Constipation Code(s): K59.00 - CONSTIPATION, UNSPECIFIED Status: Chronic (7) UTI (urinary tract infection) Status: Resolved (8) Physical deconditioning Code(s): R53.81 - OTHER MALAISE Status: Acute (9) Dementia Code(s): F03.90 - UNSPECIFIED DEMENTIA WITHOUT BEHAVIORAL DISTURBANCE Status: Chronic - Plan Replete serum potassium with oral KCL. Replete serum magnesium with magnesium sulphate. continue bowel regimen Keep lucio catheter. voiding trial in 10-14 days. repeat electrolytes in the am For discharge once placement is concluded
[2019-06-20] MEDS: traZODone HCl 50 MG TAB PO SCH (20:36)
[2019-06-20] MEDS: Melatonin 3 MG TAB PO PRN (20:36)
[2019-06-21] MEDS: Mometasone/Formoterol 120 PUFF INHALER INH SCH ×2 (06:46→18:27)
[2019-06-21] MEDS: Aspirin 81 mg Enteric Coated Tablet PO SCH ×2 (08:39→20:31)
[2019-06-21] MEDS: Famotidine 20 MG TAB PO SCH ×2 (08:39→20:31)
[2019-06-21] MEDS: DULoxetine 30 MG CAP PO SCH (08:39)
[2019-06-21] MEDS: Docusate 100 MG CAP PO SCH ×2 (08:39→20:31)
[2019-06-21] MEDS: Donepezil HCl 10 MG TAB PO SCH (08:39)
[2019-06-21] MEDS: Potassium Chloride 20 MEQ TAB PO SCH ×2 (08:39→16:35)
[2019-06-21] MEDS: Polyethylene Glycol 3350 17 GM Packet PO SCH ×2 (08:40→20:30)
[2019-06-21 15:36] LABS: Anion Gap 9 mmol/L (10-20); BUN (Urea Nitrogen) 9 mg/dL (9.8-20.1); Calc. Creatinine Clearance 57 mL/min (70-130); Calcium 8.6 mg/dL (7.8-10.44); Carbon Dioxide 29 mmol/L (23-31); Chloride 103 mmol/L (98-107); Estimated GFR-MDRD Greater than 90; Glucose 97 mg/dL (83-110); Sodium 136 mmol/L (136-145)
[2019-06-21] MEDS: traZODone HCl 50 MG TAB PO SCH (20:31)
--- NOTE | 2019-06-21 21:24 | PDOC.HOSPP ---
- Subjective Subjective: no complaints - Objective Vital Signs & Weight: Vital Signs (12 hours) Temp Pulse Resp BP Pulse Ox 06/21/19 19:47 98.7 F 73 16 122/65 96 06/21/19 18:27 71 16 95 Weight Admit Weight 108 lb 0.424 oz Weight 108 lb 0.424 oz I&O: 06/20/19 06/21/19 06/22/19 06:59 06:59 06:59 Intake Total 2288 1155 Output Total 2250 2300 Balance 38 -1145 Result Diagrams: 06/20/19 10:18 06/21/19 14:51 Hospitalist ROS - Medication Medications: Active Medications Generic Name Dose Route Start Last Admin Trade Name Freq PRN Reason Stop Dose Admin Aspirin 81 mg 06/16/19 21:00 06/21/19 20:31 Ecotrin PO 81 mg BID MANUEL Administration Docusate Sodium 100 mg 06/19/19 21:00 06/21/19 20:31 Colace PO 100 mg BID MANUEL Administration Donepezil HCl 10 mg 06/17/19 09:00 06/21/19 08:39 Aricept PO 10 mg DAILY MANUEL Administration Duloxetine HCl 30 mg 06/17/19 09:00 06/21/19 08:39 Cymbalta PO 30 mg DAILY MANUEL Administration Famotidine 20 mg 06/18/19 21:00 06/21/19 20:31 Pepcid PO 20 mg BID MANUEL Administration Melatonin 3 mg 06/16/19 17:08 06/20/19 20:36 Melatonin PO 3 mg HS PRN Administration Insomnia Mometasone Furoate/Formoterol Fumar 2 puff 06/16/19 18:30 06/21/19 18:27 Dulera 100 Mcg/5 Mcg Inhaler INH 2 puff BID-RT MANUEL Administration Polyethylene Glycol 17 gm 06/17/19 09:00 06/21/19 20:30 Miralax PO 17 gm Q12HR MANUEL Administration Potassium Chloride 40 meq 06/20/19 17:00 06/21/19 16:35 K-Dur PO 40 meq BID-WM MANUEL Administration Quetiapine Fumarate 25 mg 06/16/19 21:00 06/21/19 20:32 Seroquel PO 25 mg HS MANUEL Administration Sodium Chloride 10 ml 06/16/19 16:41 06/19/19 08:24 Flush - Normal Saline IVF 10 ml Q12HR PRN Administration Saline Flush Trazodone HCl 100 mg 06/16/19 21:00 06/21/19 20:31 Desyrel PO 100 mg HS MANUEL Administration - Exam Eye: PERRL ENT: normocephalic atraumatic Neck: supple Heart: RRR Respiratory: CTAB Gastrointestinal: soft Hosp A/P - Plan (1) Hypokalemia Code(s): E87.6 - HYPOKALEMIA Status: Acute (2) Hypomagnesemia Code(s): E83.42 - HYPOMAGNESEMIA Status: Acute (3) Fracture of left hip requiring operative repair Code(s): S72.002A - FRACTURE OF UNSP PART OF NECK OF LEFT FEMUR, INIT Status: Acute (4) JAGUAR (acute kidney injury) Code(s): N17.9 - ACUTE KIDNEY FAILURE, UNSPECIFIED Status: Acute (5) Urinary retention Code(s): R33.9 - RETENTION OF URINE, UNSPECIFIED Status: Acute (6) Constipation Code(s): K59.00 - CONSTIPATION, UNSPECIFIED Status: Chronic (7) UTI (urinary tract infection) Status: Resolved (8) Physical deconditioning Code(s): R53.81 - OTHER MALAISE Status: Acute (9) Dementia Code(s): F03.90 - UNSPECIFIED DEMENTIA WITHOUT BEHAVIORAL DISTURBANCE Status: Chronic - Plan 06/20 Replete serum potassium with oral KCL. Replete serum magnesium with magnesium sulphate. continue bowel regimen Keep lucio catheter. voiding trial in 10-14 days. repeat electrolytes in the am For discharge once placement is concluded plan 06/21 electrolytes replaced appropriately in am if she remains stable and repeat labs are ok will send to [place]
[2019-06-22 06:25] LABS: #Basophils 0.1 thou/uL (0.0-0.2); #Eosinphils 0.4 thou/uL (0.0-0.7); #Lymphocytes 1.6 thou/uL (1.20-3.40); #Monocytes 0.9 thou/uL (0.11-0.59); #Neutrophils 7.1 thou/uL (1.40-6.50); %Basophils 0.7 % (0.0-1.0); %Eosinophils 4.3 % (0.0-10.0); %Lymphocytes 15.9 % (21.0-51.0); %Monocytes 8.6 % (0.0-10.0); %Neutrophils 70.4 % (42.0-75.0); Mean Corpuscular HGB CONC 32.8 g/dL (32.0-36.0); Mean Corpuscular Hemoglobin 31.6 pg (27.0-31.0); Mean Corpuscular Volume 96.4 fL (78.0-98.0); Mean Platelet Volume 6.4 fL (7.4-10.4); Platelet Count 450 thou/uL (130-400); RBC Distribution Width 13.4 % (11.5-14.5); Red Blood Cell (RBC) Count 3.17 mill/uL (4.20-5.40)
[2019-06-22 06:47] LABS: Anion Gap 10 mmol/L (10-20); BUN (Urea Nitrogen) 8 mg/dL (9.8-20.1); Calc. Creatinine Clearance 55 mL/min (70-130); Calcium 8.9 mg/dL (7.8-10.44); Carbon Dioxide 28 mmol/L (23-31); Chloride 101 mmol/L (98-107); Estimated GFR-MDRD 90; Glucose 84 mg/dL (83-110); Potassium 4.3 mmol/L (3.5-5.1); Sodium 135 mmol/L (136-145)
[2019-06-22] MEDS: Mometasone/Formoterol 120 PUFF INHALER INH SCH (07:02)
[2019-06-22 07:18] VITALS: BP 109/65; TEMP 97.7
[2019-06-22] MEDS: DULoxetine 30 MG CAP PO SCH (08:24)
[2019-06-22] MEDS: Donepezil HCl 10 MG TAB PO SCH (08:24)
[2019-06-22] MEDS: Potassium Chloride 20 MEQ TAB PO SCH (08:24)
[2019-06-22] MEDS: Aspirin 81 mg Enteric Coated Tablet PO SCH (08:24)
[2019-06-22] MEDS: Famotidine 20 MG TAB PO SCH (08:25)
[2019-06-22] MEDS: Polyethylene Glycol 3350 17 GM Packet PO SCH (08:25)
[2019-06-22] MEDS: Docusate 100 MG CAP PO SCH (08:25)
--- NOTE | 2019-06-22 11:47 | DIS ---
DATE OF ADMISSION: 06/16/2019 DATE OF DISCHARGE: 06/22/2019 HOSPITAL COURSE: This is a 79-year-old female patient, who was admitted on June 16, 2019. She was transferred from [facility]. The reason for transfer was abdominal pain/distention, the patient was at [facility] post left femur fracture. In the emergency room, her white count was 17.6. Her creatinine was 1.36, which is worse than her baseline. Her urinalysis was positive for an infection. CT of the abdomen and pelvis showed severe urinary retention and mild bilateral hydronephrosis. The patient was started on IV antibiotics. A consultation for Urology was placed, and a Rojas was inserted, the Rojas drained 650 mL of urine. The patient was started on gentle IV fluid hydration. Urology impression was that she had a urinary retention, could be due to pain medication or constipation. The recommendation was to keep the Rojas catheter for approximately 10 days and then to attempt a trial to remove it and see if she can void. At some point, her antibiotics were stopped because there was low suspicion for an infection. The patient remained afebrile and continued to do well, she was also continued on laxatives. At some point, she had a low potassium and magnesium. These were replaced, and the levels remained stable. For the past 24 hours, she has been doing well. She is very cheerful, but confused. She denies any distress. She is ready to be sent to the shelter. DISCHARGE DIAGNOSES: 1. Urinary retention secondary to constipation/pain medication. 2. Presumed urinary tract infection. 3. Dehydration. 4. Dementia. 5. Post hysterectomy. 6. Left femoral neck fracture, post surgery. 7. Chronic anemia. DISCHARGE MEDICATIONS: 1. Aspirin 81 mg once a day. 2. Symbicort. 3. Aricept 10 mg once a day. 4. Duloxetine 30 mg once a day. 5. Pepcid 20 mg twice a day. 6. Gabapentin 100 mg twice a day as needed for pain. 7. DuoNeb as needed. 8. Melatonin 3 mg p.o. q.h.s. 9. Seroquel 25 mg q.h.s. 10. Trazodone 100 mg p.o. q.h.s. 11. Meloxicam 50 mg p.o. once a day. 12. Pepcid 20 mg p.o. twice a day. 13. Tramadol 50 mg p.o. q.6 hours as needed. 14. Senokot one tab p.o. b.i.d. RECOMMENDATION: To remove the catheter in 5 days. Recommendation to check potassium and magnesium in 3 days and to follow with primary care physician within a week. More than half an hour was spent to discharge the patient. Job ID: [id number]
--- NOTE | 2019-06-23 01:53 | PQF ---
DELROY MAYES ZIAD MD [id number] CLINICAL DOCUMENTATION CLARIFICATION FORM: POST DISCHARGE Addendum to original discharge summary date: ____ Late entry note date: __ DATE: 06/23/19 ATTN: Leena Virgen Please exercise your independent, professional judgment in responding to the clarification form. Clinical indicators are provided on the bottom of this form for your review Please check appropriate box(s) to clarify if the following diagnosis has been ruled in or ruled out: UTI [ ] Ruled in diagnosis [ ] Continue to treat [ yes] Resolved [ ] Ruled out diagnosis [ ] Cannot rule out diagnosis [ ] Other diagnosis [ ] Unable to determine In addition, please specify: Present on Admission (POA): [ ] Yes [ ] No [ ] Unable to determine For continuity of documentation, please document condition throughout progress notes and discharge summary. Thank You. CLINICAL INDICATORS - SIGNS / SYMPTOMS / LABS Hospitalist H&P p1 06/16 known dementia who states she was brought to the hospital due to an infection Hospitalist H&P 06/16 UA showed turbid urine with 250 leukocytes, 1+ blood, > 50WBC, >50 RBC Hospitalist H&P p4 06/16 Urinary retention Discharge summary 06/22 At some point her antibiotics were stopped because there was low suspicion for an infection RISK FACTORS Hospitalist H&P p1 06/16 79 year-old woman Hospitalist H&P p1 06/16 Dementia Hospitalist H&P p4 06/16 - UTI TREATMENTS SEP 21 IV Vancomycin SEP 21 IV Rocephin Hospitalist H&P 06/16 Catheter placed (This form is maintained as a part of the permanent medical record) 2014 [employer]. All Rights Reserved [email or web address] [not provided] MTDD
--- NOTE | 2019-06-29 18:13 | PQF ---
DELROY MAYES ZIAD MD [id number] CLINICAL DOCUMENTATION CLARIFICATION FORM: POST DISCHARGE Addendum to original discharge summary date: ____ Late entry note date: __ DATE: 06/29/19 ATTN: Leena Virgen Please exercise your independent, professional judgment in responding to the clarification form. Clinical indicators are provided on the bottom of this form for your review Please check appropriate box(es): [ ] Sepsis due to UTI [ ] SIRS due to non-infectious process (please specify etiology) [ ] with organ dysfunction [ ] without organ dysfunction [ ] Severe sepsis with acute organ dysfunction of: (Examples: respiratory failure, encephalopathy, acute kidney failure, other) [ ] Septic Shock [ y ] Localized infection without sepsis [ ] Other diagnosis [ ] Unable to determine In addition, please specify: Present on Admission (POA): [ ] Yes [ ] No [ ] Unable to determine For continuity of documentation, please document condition throughout progress notes and discharge summary. Thank You. CLINICAL INDICATORS - SIGNS / SYMPTOMS / LABS Laboratory Hematology 06/16 WBC 17.6 ED note p2 06/16 SIRS scoring: Yes, patient did meet at least 1 criteria for Step 2 ED note p3 06/16 Vital signs: BP 116/53, Pulse 86, Resp 25 Hospitalist H&P p1 06/16 known dementia who states she was brought to the hospital due to an infection Hospitalist H&P p1 06/16 UA showed turbid urine with 250 leukocytes, 1+ blood, > 50WBC, >50 RBC Hospitalist H&P p4 12 Urinary retention RISK FACTORS Hospitalist H&P p1 06/16 79 year-old woman Hospitalist H&P p1 06/16 Dementia Hospitalist H&P p4 06/16 - UTI Hospitalist H&P p4 06/16 - JAGUAR Hospitalist H&P p4 06/16 - Dehydration Hospitalist H&P p4 06/16 - Urinary retention TREATMENTS: SEP 21 IV Vancomycin SEP 21 IV Rocephin Hospitalist H&P p1 06/16 Catheter placed (This form is maintained as a part of the permanent medical record) 2014 [employer], [employer]. All Rights Reserved [email or web address] [not provided] MTDD
== END 2019-06-22 15:35 | DRG 690 ==
LOC: ERS 10:42 → T4-B 15:33
PROVIDERS: ADMIT Internal Medicine; ATTEND Internal Medicine
DX: N39.0 Urinary tract infection, site not specified (principal); N17.9 Acute kidney failure, unspecified; E44.0 Moderate protein-calorie malnutrition; Z68.1 Body mass index [BMI] 19.9 or less, adult; R33.0 Drug induced retention of urine; E86.0 Dehydration; D64.9 Anemia, unspecified; G30.9 Alzheimer's disease, unspecified; F02.80 Dementia in other diseases classified elsewhere, unspecified severity, without behavioral disturbance, psychotic disturbance, mood disturbance, and anxiety; K59.00 Constipation, unspecified; J44.9 Chronic obstructive pulmonary disease, unspecified; F32.9 Major depressive disorder, single episode, unspecified; Z96.642 Presence of left artificial hip joint; E87.6 Hypokalemia; E83.42 Hypomagnesemia; Z28.21 Immunization not carried out because of patient refusal; Z90.710 Acquired absence of both cervix and uterus; Z87.891 Personal history of nicotine dependence
CPT/HCPCS: 36415; 36416; 51702; 74177; 80048; 80053; 80069; 80202; 81003; 81015; 82274; 82550; 83605; 83690; 83735; 85025; 85027; 87086; 94664; 96361; 96365; 96375; A4353; J0696; J3370; J3475; J3490; J7050; Q9967; S0028

== ENCOUNTER 2019-07-03 09:26 | Inpatient (IN) | payer MEDICARE ==
[2019-07-03] MEDS ORDERED: Sodium Chloride 0.9% 100 ML ONE (09:54)
[2019-07-03] MEDS ORDERED: cefTRIAXone\\ROCEPHIN 2 GM VIAL ONE (09:54)
--- NOTE | 2019-07-03 09:55 | RAD ---
EXAM: Portable chest PROVIDED CLINICAL HISTORY: Altered mental status COMPARISON: 06/07/2019 FINDINGS: Cardiac and mediastinal silhouette is within normal limits. No focal consolidation, pleural fluid or pneumothorax evident. IMPRESSION: No evidence for an acute cardiopulmonary process.
[2019-07-03 10:09] LABS: #Basophils 0.1 thou/uL (0.0-0.2); #Eosinphils 0.1 thou/uL (0.0-0.7); #Lymphocytes 1.5 thou/uL (1.20-3.40); #Monocytes 1.2 thou/uL (0.11-0.59); #Neutrophils 16.1 thou/uL (1.40-6.50); %Basophils 0.3 % (0.0-1.0); %Eosinophils 0.4 % (0.0-10.0); %Lymphocytes 7.8 % (21.0-51.0); %Monocytes 6.2 % (0.0-10.0); %Neutrophils 85.3 % (42.0-75.0); Hemoglobin 12.6 g/dL (12.0-16.0); Mean Corpuscular HGB CONC 33.4 g/dL (32.0-36.0); Mean Corpuscular Hemoglobin 31.4 pg (27.0-31.0); Mean Corpuscular Volume 94.2 fL (78.0-98.0); Mean Platelet Volume 8.6 fL (7.4-10.4); Platelet Count 418 thou/uL (130-400); RBC Distribution Width 13.4 % (11.5-14.5); Red Blood Cell (RBC) Count 4.02 mill/uL (4.20-5.40); White Blood Cell (WBC) Count 18.9 thou/uL (4.8-10.8)
[2019-07-03 10:23] LABS: ALT (SGPT) 9 U/L (8-55); AST (SGOT) 13 U/L (5-34); Albumin 3.9 g/dL (3.4-4.8); Alkaline Phosphatase 142 U/L (40-110); Anion Gap 18 mmol/L (10-20); BUN (Urea Nitrogen) 62 mg/dL (9.8-20.1); Bilirubin, Total 0.5 mg/dL (0.2-1.2); Calc. Creatinine Clearance 0 mL/min (70-130); Calcium 10.3 mg/dL (7.8-10.44); Carbon Dioxide 23 mmol/L (23-31); Chloride 100 mmol/L (98-107); Estimated GFR-MDRD 31; Globulin 4.6 g/dL (2.4-3.5); Glucose 123 mg/dL (83-110); Potassium 5.3 mmol/L (3.5-5.1); Protein, Total 8.5 g/dL (6.0-8.3); Sodium 136 mmol/L (136-145)
[2019-07-03 10:30] LABS: Bilirubin Small (Negative); Blood, Urine Moderate (Negative); Glucose, Urine (Dipstick) Negative (Negative); Leukocyte Large (Negative); Nitrite Positive (Negative); Protein, Urine (Dipstick) > or equal to 300 mg/dL (Neg-Trace)
[2019-07-03] MEDS ORDERED: Vancomycin 1.5 GRAM/300 ML BAG 1.5 GM in Premix Bag 1 BAG IVPB SCH (10:30)
[2019-07-03 10:33] LABS: Clarity Turbid (Clear)
[2019-07-03 10:37] LABS: Bacteria/HPF 4+ HPF (None Seen); Squamous Epithelial None Seen HPF (0-3); WBC/HPF Greater Than 50 HPF (0-3)
[2019-07-03] MEDS ORDERED: Ondansetron PF 4 MG/2 ML Vial IVP PRN (13:56)
[2019-07-03] MEDS ORDERED: Ondansetron ODT 4 MG TAB SL PRN (13:56)
[2019-07-03] MEDS ORDERED: Acetaminophen 325 MG TAB PO PRN (13:56)
[2019-07-03] MEDS ORDERED: Sodium Chloride 0.9% 1,000 ML IV SCH (14:00)
[2019-07-03 15:53] VITALS: BMI 15.9
[2019-07-03] MEDS ORDERED: Senokot S 8.6-50 MG TAB PO PRN (16:08)
[2019-07-03] MEDS: Sodium Chloride 0.9% 1,000 ML IV SCH ×2 (16:56→20:14)
[2019-07-03] MEDS: Famotidine 20 MG TAB PO SCH (20:14)
[2019-07-03 21:44] LABS: Anion Gap 16 mmol/L (10-20); BUN (Urea Nitrogen) 57 mg/dL (9.8-20.1); Calc. Creatinine Clearance 26 mL/min (70-130); Calcium 8.9 mg/dL (7.8-10.44); Carbon Dioxide 16 mmol/L (23-31); Chloride 110 mmol/L (98-107); Estimated GFR-MDRD 41; Glucose 109 mg/dL (83-110); Potassium 3.8 mmol/L (3.5-5.1); Sodium 138 mmol/L (136-145)
[2019-07-03] MEDS ORDERED: Gabapentin 100 MG CAP PO PRN (23:26)
[2019-07-03] MEDS ORDERED: Melatonin 3 MG TAB PO PRN (23:26)
[2019-07-04] MEDS ORDERED: Phenylephrine HCL 10 MG/ML VIAL ONE (02:26)
[2019-07-04] MEDS ORDERED: hydrALAZINE 20 MG/ML VIAL ONE (02:26)
[2019-07-04 06:12] LABS: #Basophils 0.1 thou/uL (0.0-0.2); #Eosinphils 0.2 thou/uL (0.0-0.7); #Lymphocytes 1.2 thou/uL (1.20-3.40); #Monocytes 1.5 thou/uL (0.11-0.59); #Neutrophils 16.5 thou/uL (1.40-6.50); %Basophils 0.4 % (0.0-1.0); %Eosinophils 0.8 % (0.0-10.0); %Lymphocytes 6.4 % (21.0-51.0); %Monocytes 7.5 % (0.0-10.0); %Neutrophils 84.9 % (42.0-75.0); Hemoglobin 10.3 g/dL (12.0-16.0); Mean Corpuscular HGB CONC 33.1 g/dL (32.0-36.0); Mean Corpuscular Hemoglobin 31.6 pg (27.0-31.0); Mean Corpuscular Volume 95.3 fL (78.0-98.0); Mean Platelet Volume 7.1 fL (7.4-10.4); Platelet Count 413 thou/uL (130-400); RBC Distribution Width 13.2 % (11.5-14.5); Red Blood Cell (RBC) Count 3.27 mill/uL (4.20-5.40); White Blood Cell (WBC) Count 19.4 thou/uL (4.8-10.8)
[2019-07-04 06:43] LABS: ALT (SGPT) Less than 7 U/L (8-55); AST (SGOT) 12 U/L (5-34); Albumin 3.2 g/dL (3.4-4.8); Alkaline Phosphatase 118 U/L (40-110); Anion Gap 18 mmol/L (10-20); BUN (Urea Nitrogen) 50 mg/dL (9.8-20.1); Bilirubin, Total 0.4 mg/dL (0.2-1.2); Calc. Creatinine Clearance 30 mL/min (70-130); Calcium 9.2 mg/dL (7.8-10.44); Carbon Dioxide 15 mmol/L (23-31); Chloride 112 mmol/L (98-107); Estimated GFR-MDRD 48; Globulin 3.7 g/dL (2.4-3.5); Glucose 85 mg/dL (83-110); Potassium 3.6 mmol/L (3.5-5.1); Protein, Total 6.9 g/dL (6.0-8.3); Sodium 141 mmol/L (136-145)
--- NOTE | 2019-07-04 07:45 | HP ---
PRIMARY CARE PHYSICIAN: Dr. Devries. CHIEF COMPLAINT: Altered mental status and UTI. HISTORY OF PRESENT ILLNESS: Ms. Karimi is a 79-year-old female who reported to the emergency room via EMS from the [facility]. Per EMS, patient was A and O x1, was seen normal yesterday. Reports that she does have a past medical history pertinent for Alzheimer's, repeated falls, failure to thrive, and COPD. Patient was admitted to our facility a month ago for similar and was discharged on 06/22/2019 after having some urinary retention, urinary tract infection, dehydration, left femoral neck fracture status post surgery, and some anemia. On this admission, patient was found to be dehydrated and hemoconcentrated. Sodium 136, potassium 5.3, BUN 62, creatinine 1.60, estimated GFR was 31, glucose 123, lactic acid 2.5, and alk phos 142. Patient was given a liter and half of fluids in the emergency room and then continued on a maintenance. Basic metabolic panel was rechecked at 2113. Sodium 138, potassium 3.8, chloride 110, carbon dioxide at 16, creatinine had improved to 1.26, and BUN at 57. Patient was given a gram and a half of vancomycin and Rocephin 2 g here in the emergency room and then admitted for further management. REVIEW OF SYSTEMS: Patient reports that she has not felt well for about a week. She denied any fevers or chills. She reports some diffuse abdominal pain. Denied any dysuria. All systems reviewed are negative unless mentioned in the HPI or above. SURGICAL HISTORY: Patient has had a hysterectomy, left hip repair, dehydration, and malnutrition. PSYCHIATRIC HISTORY: Includes depression and Alzheimer's. SOCIAL HISTORY: Denies any alcohol or drug use. Smokes about half a pack a day. ALLERGIES: KNOWN ALLERGIES, NONE. CURRENT MEDICATIONS: 1. Tylenol 500 mg q.6 hours as needed. 2. Budesonide/formoterol 80 mcg/4.5 q.12. 3. Cipro. She was on 500 mg p.o. b.i.d., this will be held. 4. Aricept 10 mg p.o. daily. 5. Duloxetine 30 mg p.o. daily. 6. Neurontin 100 mg p.o. q.12. 7. Meloxicam 15 mg p.o. daily. 8. Tramadol 50 mg p.o. q.6 hours. 9. Trazodone 50 mg p.o. at bedtime. 10. Aspirin 81 mg p.o. b.i.d. 11. Colace 100 mg p.o. b.i.d. 12. Pepcid 20 mg p.o. b.i.d. 13. Melatonin 3 mg p.o. at bedtime. 14. MiraLAX 17 g p.o. daily. 15. Seroquel 25 mg p.o. at bedtime. 16. Senokot S one tab p.o. b.i.d. PHYSICAL EXAMINATION: VITAL SIGNS: Blood pressure 132/56, pulse is 74, respirations are 18, temperature is 97.8, and pO2 sats are 97% on room air. CONSTITUTIONAL: Patient appears nontoxic. She is alert and oriented x2. She can tell me her name. She can tell me where she is. She does not quite understand why she is here. She does report that she has been feeling bad for about a week. HEENT: Head is atraumatic and normocephalic. Eyes, pupils are equal, round, and reactive to light. Extraocular muscles are intact. ENT; mouth exam is normal. Mucous membranes are dry. NECK: Normal range of motion. Trachea is midline. RESPIRATORY: Breath sounds are clear. Chest expansion is equal. CARDIOVASCULAR: Heart rate regular rate and rhythm. Heart sounds are normal. ABDOMEN: Nontender. Bowel sounds are heard. BACK: Normal range of motion. No tenderness. EXTREMITIES: Upper extremity, normal range of motion. Motor strength is normal. Radial pulses are normal. Lower extremity, normal range of motion. Motor strength is normal. Pedal pulses are normal. No edema is noted. NEUROLOGIC: Patient is alert and oriented to person and place. She is grossly moving all of her extremities. Face is symmetrical. SKIN: Warm and dry, normal in color. PSYCH: Has a normal affect. She does not answer all questions, but does answer most appropriately. LABORATORY DATA: EKG in the emergency room shows a normal sinus rhythm, beats per minute 97. Conduction is normal. ST segments are normal. [place] is left. Patient's UA; specific gravity 1.015, positive for ketones, blood, nitrites, bilirubin, leukocyte esterase, white blood cells, and 4+ bacteria. This has been sent off for culture. Blood cultures have also been obtained. ASSESSMENT AND PLAN: 1. Altered mental status, most likely due to dehydration and urinary tract infection. Patient was alert and oriented x2 for me on exam. We will continue with the Rocephin daily, normal saline at 75 mL per hour, will have PT/OT, evaluate. We have asked Dietary to evaluate as well. Patient is cachectic. Draw lab values in the a.m. 2. History of dementia. We will restart her home medications. 3. History of chronic obstructive pulmonary disease. Restart her home inhalers. Add DuoNebs as needed. 4. History of constipation due to pain medications for recent hip fracture. We will restart these scheduled. 5. Deep venous thrombosis, gastrointestinal prophylaxis has been started. Case was discussed with Dr. Bautista, who agrees with plan. Job ID: [id number]
[2019-07-04] MEDS: Mometasone/Formoterol 120 PUFF INHALER INH SCH ×2 (08:05→18:39)
[2019-07-04] MEDS: Docusate 100 MG CAP PO SCH ×2 (09:12→20:04)
[2019-07-04] MEDS: Donepezil HCl 10 MG TAB PO SCH (09:12)
[2019-07-04] MEDS: Meloxicam 15 MG TAB PO SCH (09:12)
[2019-07-04] MEDS: DULoxetine 30 MG CAP PO SCH (09:13)
[2019-07-04] MEDS: Polyethylene Glycol 3350 17 GM Packet PO SCH (09:13)
[2019-07-04] MEDS: Aspirin 81 mg Enteric Coated Tablet PO SCH ×2 (09:13→20:04)
[2019-07-04] MEDS: Sodium Chloride 0.9% 1,000 ML IV SCH ×2 (14:58→18:07)
[2019-07-04] MEDS: cefTRIAXone\\ROCEPHIN 1 GM in Sodium Chloride 0.9% 100 ML IVPB SCH (14:58)
--- NOTE | 2019-07-04 17:55 | PDOC.HOSPP ---
- Subjective Encounter Date: 07/04/19 Encounter Time: 15:00 Subjective: THe patient has no complaints, denies nausea, vomiting, dysuria. Patient does not know where she is - Objective Vital Signs & Weight: Vital Signs (12 hours) Temp Pulse Resp BP Pulse Ox 07/04/19 12:15 98.1 F 96 17 114/51 L 98 07/04/19 09:15 96 07/04/19 08:05 88 16 96 07/04/19 07:34 98.1 F 98 18 147/76 H 96 Weight Admit Weight 98 lb 9.6 oz Weight 98 lb 9.6 oz I&O: 07/03/19 07/04/19 07/05/19 06:59 06:59 06:59 Intake Total 1640 Balance 1640 Result Diagrams: 07/04/19 05:39 07/04/19 05:39 Hospitalist ROS - Review of Systems Constitutional: denies: fever, chills - Medication Medications: Active Medications Generic Name Dose Route Start Last Admin Trade Name Freq PRN Reason Stop Dose Admin Aspirin 81 mg 07/04/19 09:00 07/04/19 09:13 Ecotrin PO 81 mg BID MANUEL Administration Docusate Sodium 100 mg 07/04/19 09:00 07/04/19 09:12 Colace PO 100 mg BID MANUEL Administration Donepezil HCl 10 mg 07/04/19 09:00 07/04/19 09:12 Aricept PO 10 mg DAILY MANUEL Administration Duloxetine HCl 30 mg 07/04/19 09:00 07/04/19 09:13 Cymbalta PO 30 mg DAILY MANUEL Administration Famotidine 20 mg 07/03/19 21:00 07/03/19 20:14 Pepcid PO 20 mg QPM MANUEL Administration Sodium Chloride 1,000 mls @ 75 mls/hr 07/03/19 16:15 07/04/19 14:58 Normal Saline 0.9% IV 1,000 mls .[id number] MANUEL Administration Ceftriaxone Sodium 1 gm/ 100 mls @ 200 mls/hr 07/04/19 15:00 07/04/19 14:58 Sodium Chloride IVPB 100 mls Q24HR MANUEL Administration Meloxicam 15 mg 07/04/19 09:00 07/04/19 09:12 Mobic PO 15 mg DAILY MANUEL Administration Mometasone Furoate/Formoterol Fumar 1 puff 07/04/19 06:30 07/04/19 08:05 Dulera 100 Mcg/5 Mcg Inhaler INH 1 puff BID-RT MANUEL Administration Polyethylene Glycol 17 gm 07/04/19 09:00 07/04/19 09:13 Miralax PO 17 gm DAILY MANUEL Administration - Exam General Appearance: NAD, awake alert General - other findings: Cachexic Eye: PERRL, anicteric sclera ENT: normocephalic atraumatic, no oropharyngeal lesions Neck: supple, symmetric, no JVD, no thyromegaly Heart: RRR, no murmur, no gallops, no rubs Respiratory: CTAB, no wheezes, no rales, no ronchi Gastrointestinal: soft, non-tender, non-distended Extremities: no cyanosis, no clubbing, no edema Skin: normal turgor, no lesions, no rashes Neurological: cranial nerve grossly intact, normal sensation to touch, no focal deficits, no new deficit Hosp A/P - Plan Chest X ray: normal This is a 79 year old female who presented with sepsis secondary to UTI #Acute encephalopathy secondary to UTI #Sepsis secondary to UTI - WBC up to 19, currently on IV ceftriaxone. UA shows TNTC WBC, urine culture still pending - Clinically appears stable however, so will monitor - continue IV fluids #Dementia - donepezil #COPD - continue home inhalers #Anemia - Hb 10, likely dilutional, will monitor #Elevated ALP - downtrending, likely from dehydration - continue to monitor Physical deconditioning - PT/OT Code status: unknown, assume full code
[2019-07-04] MEDS: Famotidine 20 MG TAB PO SCH (20:04)
[2019-07-05] MEDS: Sodium Chloride 0.9% 1,000 ML IV SCH (05:36)
[2019-07-05] MEDS: Mometasone/Formoterol 120 PUFF INHALER INH SCH ×2 (08:22→18:49)
[2019-07-05 09:44] LABS: Hemoglobin 9.8 g/dL (12.0-16.0); Mean Corpuscular HGB CONC 32.7 g/dL (32.0-36.0); Mean Corpuscular Hemoglobin 31.3 pg (27.0-31.0); Mean Corpuscular Volume 95.8 fL (78.0-98.0); Mean Platelet Volume 6.9 fL (7.4-10.4); Platelet Count 417 thou/uL (130-400); RBC Distribution Width 13.3 % (11.5-14.5); Red Blood Cell (RBC) Count 3.12 mill/uL (4.20-5.40); White Blood Cell (WBC) Count 17.3 thou/uL (4.8-10.8)
[2019-07-05] MEDS: Docusate 100 MG CAP PO SCH ×2 (09:46→20:57)
[2019-07-05] MEDS: Donepezil HCl 10 MG TAB PO SCH (09:46)
[2019-07-05] MEDS: Aspirin 81 mg Enteric Coated Tablet PO SCH ×2 (09:47→20:57)
[2019-07-05] MEDS: Meloxicam 15 MG TAB PO SCH (09:47)
[2019-07-05] MEDS: Polyethylene Glycol 3350 17 GM Packet PO SCH (09:47)
[2019-07-05] MEDS: DULoxetine 30 MG CAP PO SCH (09:47)
[2019-07-05 09:55] LABS: Anion Gap 11 mmol/L (10-20); BUN (Urea Nitrogen) 38 mg/dL (9.8-20.1); Calc. Creatinine Clearance 35 mL/min (70-130); Calcium 9.1 mg/dL (7.8-10.44); Carbon Dioxide 19 mmol/L (23-31); Chloride 117 mmol/L (98-107); Estimated GFR-MDRD 58; Glucose 142 mg/dL (83-110); Potassium 3.4 mmol/L (3.5-5.1); Sodium 144 mmol/L (136-145)
[2019-07-05] MEDS ORDERED: Potassium Chloride 20 MEQ TAB PO SCH (10:45)
--- NOTE | 2019-07-05 14:40 | PDOC.HOSPP ---
- Subjective Encounter Date: 07/05/19 Encounter Time: 12:00 Subjective: THe patient has no complaints, no nausea or vomiting. Speech saw the patient and patients was coughing significantly after small bites and recommended NPO. Patient was having productive cough during speech evaluation Abdomen noted to be distended. Patient states she had a bowel movement this morning she thinkss - Objective Vital Signs & Weight: Vital Signs (12 hours) Temp Pulse Resp BP Pulse Ox 07/05/19 08:22 94 16 97 07/05/19 08:00 98.9 F 94 17 147/71 H 97 07/05/19 05:00 97.9 F 99 17 145/57 H 97 Weight Admit Weight 98 lb 9.6 oz Weight 98 lb 9.6 oz I&O: 07/04/19 07/05/19 07/06/19 06:59 06:59 06:59 Intake Total 1640 2555 240 Balance 1640 2555 240 Result Diagrams: 07/05/19 09:15 07/05/19 09:15 Hospitalist ROS - Review of Systems Constitutional: denies: fever ENT: denies: mouth pain, mouth swelling Respiratory: denies: sputum Gastrointestinal: denies: vomiting - Medication Medications: Active Medications Generic Name Dose Route Start Last Admin Trade Name Freq PRN Reason Stop Dose Admin Aspirin 81 mg 07/04/19 09:00 07/05/19 09:47 Ecotrin PO 81 mg BID MANUEL Administration Docusate Sodium 100 mg 07/04/19 09:00 07/05/19 09:46 Colace PO 100 mg BID MANUEL Administration Donepezil HCl 10 mg 07/04/19 09:00 07/05/19 09:46 Aricept PO 10 mg DAILY MANUEL Administration Duloxetine HCl 30 mg 07/04/19 09:00 07/05/19 09:47 Cymbalta PO 30 mg DAILY MANUEL Administration Famotidine 20 mg 07/03/19 21:00 07/04/19 20:04 Pepcid PO 20 mg QPM MANUEL Administration Ceftriaxone Sodium 1 gm/ 100 mls @ 200 mls/hr 07/04/19 15:00 07/04/19 14:58 Sodium Chloride IVPB 100 mls Q24HR MANUEL Administration Meloxicam 15 mg 07/04/19 09:00 07/05/19 09:47 Mobic PO 15 mg DAILY MANUEL Administration Mometasone Furoate/Formoterol Fumar 1 puff 07/04/19 06:30 07/05/19 08:22 Dulera 100 Mcg/5 Mcg Inhaler INH 1 puff BID-RT MANUEL Administration Polyethylene Glycol 17 gm 07/04/19 09:00 07/05/19 09:47 Miralax PO 17 gm DAILY MANUEL Administration Quetiapine Fumarate 25 mg 07/04/19 21:00 07/04/19 20:04 Seroquel PO 25 mg HS MANUEL Administration - Exam General Appearance: NAD, awake alert Eye: PERRL, anicteric sclera ENT: normocephalic atraumatic, no oropharyngeal lesions Neck: supple, symmetric, no JVD, no thyromegaly, no carotid bruit Heart: RRR, no murmur, no gallops, no rubs Respiratory: CTAB, no wheezes, no rales, no ronchi Gastrointestinal: soft Gastrointestinal - other findings: abdomen distended, firm and tender to palpation Extremities: no cyanosis, no clubbing, no edema Skin: normal turgor, no lesions, no rashes Neurological: cranial nerve grossly intact, normal sensation to touch, no focal deficits, no new deficit, vision deficit Musculoskeletal: normal tone, normal strength, no muscle wasting Psychiatric: normal affect, normal behavior, A&O x 3 Hosp A/P - Plan Chest X ray: normal Chest X ray: hyperinflated with interstitial prominencne Abdominal X ray: moderate retained fecal material This is a 79 year old female who presented with sepsis secondary to UTI #Acute encephalopathy secondary to UTI #Sepsis secondary to UTI - WBC down to 17, urine culture still pending - continue IV ceftriaxone #Abdominal distension - possibly constipation - miralax daily, senna/colace #Dysphagia - speech evaluated patient, recommended NPO -will re-evaluate patient tomorrow - D5 1/2 NS for maintenance fluid #Dementia - donepezil #COPD - continue home inhalers #Anemia - Hb 10, likely dilutional, will monitor #Elevated ALP - downtrending, likely from dehydration - continue to monitor Physical deconditioning - PT/OT Dispo: speech to re-evaluate tomorrow, pending urine cultures Code status: unknown, assume full code
[2019-07-05] MEDS: cefTRIAXone\\ROCEPHIN 1 GM in Sodium Chloride 0.9% 100 ML IVPB SCH (15:09)
--- NOTE | 2019-07-05 15:11 | RAD ---
Exam: Chest one view HISTORY:Cough Comparison: 07/03/2019 FINDINGS: Lungs: Hyperinflated with interstitial prominence. Biapical pleural irregularity. Cardiac silhouette:Accentuated by technique. Vascular disease is present. Pulmonary vessels: Normal Pleural Spaces: Clear Pneumothorax: None Osseous abnormalities: None of acuity. IMPRESSION: COPD
--- NOTE | 2019-07-05 15:12 | RAD ---
XR Abdomen 1 View/KUB CLINICAL INDICATION: Pain FINDINGS: Nonspecific bowel gas pattern, with scattered air-filled bowel seen within the abdomen. Anastomotic suture seen at the left mid abdomen. Moderate retained fecal material is seen within colon. No acute osseous pathology. Vascular disease. IMPRESSION: Nonspecific bowel gas pattern.
[2019-07-05] MEDS: Dextrose 5 %-0.45 % NaCl 1,000 ML IV SCH (17:45)
[2019-07-05] MEDS: Famotidine 20 MG TAB PO SCH (20:57)
[2019-07-06 06:12] LABS: Hemoglobin 9.5 g/dL (12.0-16.0); Mean Corpuscular HGB CONC 32.3 g/dL (32.0-36.0); Mean Corpuscular Volume 95.9 fL (78.0-98.0); Mean Platelet Volume 6.7 fL (7.4-10.4); Platelet Count 416 thou/uL (130-400); RBC Distribution Width 13.7 % (11.5-14.5); Red Blood Cell (RBC) Count 3.05 mill/uL (4.20-5.40); White Blood Cell (WBC) Count 14.2 thou/uL (4.8-10.8)
[2019-07-06 06:34] LABS: Anion Gap 12 mmol/L (10-20); BUN (Urea Nitrogen) 30 mg/dL (9.8-20.1); Calc. Creatinine Clearance 33 mL/min (70-130); Carbon Dioxide 17 mmol/L (23-31); Chloride 121 mmol/L (98-107); Estimated GFR-MDRD 55; Glucose 105 mg/dL (83-110); Potassium 4.1 mmol/L (3.5-5.1); Sodium 146 mmol/L (136-145)
[2019-07-06] MEDS: Dextrose 5 %-0.45 % NaCl 1,000 ML IV SCH (07:58)
[2019-07-06] MEDS: Meloxicam 15 MG TAB PO SCH (08:00)
[2019-07-06] MEDS: Donepezil HCl 10 MG TAB PO SCH (08:00)
[2019-07-06] MEDS: Aspirin 81 mg Enteric Coated Tablet PO SCH ×2 (08:00→20:20)
[2019-07-06] MEDS: DULoxetine 30 MG CAP PO SCH (08:00)
[2019-07-06] MEDS: Docusate 100 MG CAP PO SCH ×2 (08:00→20:20)
[2019-07-06] MEDS: Polyethylene Glycol 3350 17 GM Packet PO SCH (08:00)
[2019-07-06] MEDS: Mometasone/Formoterol 120 PUFF INHALER INH SCH ×2 (08:33→18:56)
[2019-07-06] MEDS: cefTRIAXone\\ROCEPHIN 1 GM in Sodium Chloride 0.9% 100 ML IVPB SCH (14:46)
--- NOTE | 2019-07-06 17:14 | PDOC.HOSPP ---
- Subjective Encounter Date: 07/06/19 Encounter Time: 16:40 Subjective: The patient is laying in bed with no complaints. She is hunched over and contracted. She denies abdominal pain, nausea, and vomiting. - Objective Vital Signs & Weight: Vital Signs (12 hours) Temp Pulse Resp BP Pulse Ox 07/06/19 16:21 98.0 F 95 95 H 144/82 H 95 07/06/19 12:10 97.6 F 86 20 151/77 H 96 07/06/19 08:00 94 L 07/06/19 07:33 98.6 F 88 20 158/79 H 94 L Weight Admit Weight 98 lb 9.6 oz Weight 98 lb 9.6 oz I&O: 07/05/19 07/06/19 07/07/19 06:59 06:59 06:59 Intake Total 2555 1780 Balance 2555 1780 Result Diagrams: 07/06/19 06:00 07/06/19 06:00 Hospitalist ROS - Review of Systems Constitutional: denies: fever Respiratory: denies: pleuritic pain Musculoskeletal: denies: neck pain, shoulder pain - Medication Medications: Active Medications Generic Name Dose Route Start Last Admin Trade Name Freq PRN Reason Stop Dose Admin Aspirin 81 mg 07/04/19 09:00 07/06/19 08:00 Ecotrin PO Not Given BID MANUEL Docusate Sodium 100 mg 07/04/19 09:00 07/06/19 08:00 Colace PO Not Given BID MANUEL Donepezil HCl 10 mg 07/04/19 09:00 07/06/19 08:00 Aricept PO Not Given DAILY MANUEL Duloxetine HCl 30 mg 07/04/19 09:00 07/06/19 08:00 Cymbalta PO Not Given DAILY MANUEL Famotidine 20 mg 07/03/19 21:00 07/05/19 20:57 Pepcid PO Not Given QPM MANUEL Ceftriaxone Sodium 1 gm/ 100 mls @ 200 mls/hr 07/04/19 15:00 07/06/19 14:46 Sodium Chloride IVPB 100 mls Q24HR MANUEL Administration Meloxicam 15 mg 07/04/19 09:00 07/06/19 08:00 Mobic PO Not Given DAILY MANUEL Mometasone Furoate/Formoterol Fumar 1 puff 07/04/19 06:30 07/06/19 08:33 Dulera 100 Mcg/5 Mcg Inhaler INH 1 puff BID-RT MANUEL Administration Polyethylene Glycol 17 gm 07/04/19 09:00 07/06/19 08:00 Miralax PO Not Given DAILY MANUEL Quetiapine Fumarate 25 mg 07/04/19 21:00 07/05/19 20:57 Seroquel PO Not Given HS MANUEL - Exam General Appearance: NAD, awake alert Eye: PERRL, anicteric sclera ENT: normocephalic atraumatic, no oropharyngeal lesions, dry oral mucosa Neck: supple, symmetric, no JVD, no thyromegaly Heart: RRR, no murmur, no gallops, no rubs Respiratory: CTAB, no wheezes, no ronchi Gastrointestinal: soft, non-tender, non-distended Extremities: no cyanosis, no clubbing, no edema Skin: normal turgor, no lesions, no rashes Hosp A/P - Plan Chest X ray: normal Chest X ray: hyperinflated with interstitial prominencne Abdominal X ray: moderate retained fecal material This is a 79 year old female who presented with sepsis secondary to UTI #Acute encephalopathy secondary to UTI #Sepsis secondary to UTI - WBC down to 17, urine culture shows 25,000 to 50,000 CFU , however improved with antibiotics - will switch to oral cefpodoxime, continue for four more days Hypernatremia - discontinued IV fluids - will repeat BMP since diet upgraded. May d/c tomorrow if tolerating diet #Abdominal distension - possibly constipation - miralax daily, senna/colace - improved #Dysphagia - speech evaluated patient, upgraded diet to mechanical ground diet #Dementia - donepezil #COPD - continue home inhalers #Anemia - Hb 10, likely dilutional, will monitor #Elevated ALP - downtrending, likely from dehydration - continue to monitor Physical deconditioning - PT/OT Dispo: possibly d/c tomorrow Code status: unknown, assume full code
[2019-07-06 19:04] LABS: Anion Gap 13 mmol/L (10-20); BUN (Urea Nitrogen) 30 mg/dL (9.8-20.1); Calc. Creatinine Clearance 29 mL/min (70-130); Calcium 8.8 mg/dL (7.8-10.44); Carbon Dioxide 19 mmol/L (23-31); Chloride 118 mmol/L (98-107); Estimated GFR-MDRD 47; Glucose 134 mg/dL (83-110); Sodium 146 mmol/L (136-145)
[2019-07-06] MEDS ORDERED: Dextrose 5% in Water 1,000 ML IV SCH (19:45)
[2019-07-06] MEDS: Famotidine 20 MG TAB PO SCH (20:20)
[2019-07-07 06:41] LABS: Hemoglobin 9.3 g/dL (12.0-16.0); Mean Corpuscular HGB CONC 31.7 g/dL (32.0-36.0); Mean Corpuscular Hemoglobin 30.1 pg (27.0-31.0); Platelet Count 371 thou/uL (130-400); RBC Distribution Width 13.6 % (11.5-14.5); White Blood Cell (WBC) Count 11.4 thou/uL (4.8-10.8)
[2019-07-07] MEDS: Mometasone/Formoterol 120 PUFF INHALER INH SCH ×2 (07:02→19:01)
[2019-07-07 07:03] LABS: Anion Gap 12 mmol/L (10-20); BUN (Urea Nitrogen) 26 mg/dL (9.8-20.1); Calc. Creatinine Clearance 33 mL/min (70-130); Calcium 8.7 mg/dL (7.8-10.44); Carbon Dioxide 20 mmol/L (23-31); Chloride 116 mmol/L (98-107); Estimated GFR-MDRD 54; Glucose 90 mg/dL (83-110); Potassium 3.1 mmol/L (3.5-5.1); Sodium 145 mmol/L (136-145)
[2019-07-07] MEDS: Meloxicam 15 MG TAB PO SCH (08:39)
[2019-07-07] MEDS: DULoxetine 30 MG CAP PO SCH (08:39)
[2019-07-07] MEDS: Docusate 100 MG CAP PO SCH ×2 (08:39→20:42)
[2019-07-07] MEDS: Aspirin 81 mg Enteric Coated Tablet PO SCH ×2 (08:39→20:42)
[2019-07-07] MEDS: Polyethylene Glycol 3350 17 GM Packet PO SCH (08:39)
[2019-07-07] MEDS: Donepezil HCl 10 MG TAB PO SCH (08:40)
[2019-07-07] MEDS: Potassium Chloride 20 MEQ TAB PO SCH ×2 (11:19→17:57)
[2019-07-07] MEDS: Lactated Ringer's 1,000 ML IV SCH (13:18)
--- NOTE | 2019-07-07 16:21 | CT ---
CT ABDOMEN AND PELVIS WITH IV CONTRAST AND WITH ORAL CONTRAST: 07/07/19 INDICATION: Abdominal distention and abdominal tenderness. UTI with sepsis. Correlation made to recent CT abdomen and pelvis 06/16/19. That exam revealed bladder distention consi stent with urinary retention and bilateral hydronephrosis. FINDINGS: The lung bases are clear. Liver, spleen, pancreas unremarkable. Severe bladder distention was again noted similar to the prior study. There is bilateral hydronephros is again noted as result of this urinary retention. Small bowel loops are opacified and appear unremarkable. Aorta is calcified with normal caliber. Athe rosclerotic changes are present. The atherosclerotic changes appear to result in luminal stenosis of the abdominal aorta. This was also described previously and is unchanged in appearance. No free fluid or soft tissue mass. IMPRESSION: Severe bladder distention consistent with urinary retention and secondary bilateral hydronephrosis. T he findings are similar to the recent exam of 06/16/19. POS: [facility]
[2019-07-07] MEDS ORDERED: Mineral Oil ENEMA PR SCH (16:30)
--- NOTE | 2019-07-07 16:35 | PDOC.HOSPP ---
- Subjective Encounter Date: 07/07/19 Encounter Time: 11:33 Subjective: 79 y/o female, [place] resident, with Dementia, failure to thrive, COPD, recurrent falls admitted with acute mental status change and weakness. Found to have abdominal distension and UA suggestive of UTI and was started on antibiotiocs. Also given laxative for abdominal distension felt to be due to constipation. Mental status has improved but abdominal distension and tenderness persists. oral intake remained poor. - Objective Vital Signs & Weight: Vital Signs (12 hours) Temp Pulse Resp BP Pulse Ox 07/07/19 08:26 98.2 F 89 18 159/79 H 97 Weight Admit Weight 98 lb 9.6 oz Weight 98 lb 9.6 oz I&O: 07/06/19 07/07/19 07/08/19 06:59 06:59 06:59 Intake Total 1780 1300 Balance 1780 1300 Result Diagrams: 07/07/19 06:07 07/07/19 06:06 Hospitalist ROS - Medication Medications: Active Medications Generic Name Dose Route Start Last Admin Trade Name Nasimq PRN Reason Stop Dose Admin Aspirin 81 mg 07/04/19 09:00 07/07/19 08:39 Ecotrin PO 81 mg BID MANUEL Administration Cefpodoxime Proxetil 200 mg 07/06/19 21:00 07/07/19 08:40 Vantin PO 200 mg Q12HR MANUEL Administration Docusate Sodium 100 mg 07/04/19 09:00 07/07/19 08:39 Colace PO 100 mg BID MANUEL Administration Donepezil HCl 10 mg 07/04/19 09:00 07/07/19 08:40 Aricept PO 10 mg DAILY MANUEL Administration Duloxetine HCl 30 mg 07/04/19 09:00 07/07/19 08:39 Cymbalta PO 30 mg DAILY MANUEL Administration Famotidine 20 mg 07/03/19 21:00 07/06/19 20:20 Pepcid PO 20 mg QPM MANUEL Administration Lactated Ringer's 1,000 mls @ 100 mls/hr 07/07/19 11:30 07/07/19 13:18 Lactated Ringer's IV 1,000 mls .Q10H MANUEL Administration Meloxicam 15 mg 07/04/19 09:00 07/07/19 08:39 Mobic PO 15 mg DAILY MANUEL Administration Mometasone Furoate/Formoterol Fumar 1 puff 07/04/19 06:30 07/07/19 07:02 Dulera 100 Mcg/5 Mcg Inhaler INH 1 puff BID-RT MANUEL Administration Polyethylene Glycol 17 gm 07/04/19 09:00 07/07/19 08:39 Miralax PO 17 gm DAILY MANUEL Administration Quetiapine Fumarate 25 mg 07/04/19 21:00 07/06/19 20:20 Seroquel PO 25 mg HS MANUEL Administration - Exam General Appearance: awake alert Eye: anicteric sclera ENT: normocephalic atraumatic, dry oral mucosa Neck: symmetric, no JVD Heart: RRR Respiratory: no wheezes, no ronchi, normal chest expansion, no tachypnea Gastrointestinal - other findings: lower abdominal distension, firm and tender. Bs + Extremities: no edema Neurological: cranial nerve grossly intact, no new deficit Neurological - other findings: memory lapses noted Musculoskeletal: diffuse muscle atrophy Hosp A/P (1) Abdominal distension Code(s): R14.0 - ABDOMINAL DISTENSION (GASEOUS) Status: Acute (2) JAGUAR (acute kidney injury) Code(s): N17.9 - ACUTE KIDNEY FAILURE, UNSPECIFIED Status: Acute (3) Anemia Code(s): D64.9 - ANEMIA, UNSPECIFIED Status: Acute (4) Failure to thrive in adult Status: Acute (5) Hypokalemia Code(s): E87.6 - HYPOKALEMIA Status: Acute (6) Hypomagnesemia Code(s): E83.42 - HYPOMAGNESEMIA Status: Acute (7) Physical deconditioning Code(s): R53.81 - OTHER MALAISE Status: Acute (8) Constipation Code(s): K59.00 - CONSTIPATION, UNSPECIFIED Status: Chronic (9) Protein-calorie malnutrition, moderate Code(s): E44.0 - MODERATE PROTEIN-CALORIE MALNUTRITION Status: Chronic (10) Dehydration Code(s): E86.0 - DEHYDRATION Status: Resolved (11) UTI (urinary tract infection) Status: Resolved - Plan Substitute NS with LR due to worsening acidosis Get CT abdomen and pelvis. Continue antibiotics. CT showed bladder distension with bilateral hydronephrosis. will insert lucio catheter. Will also give mineral oil fleet enema x 1. [place] oral intake as tolerated. Repeat renal and CBC in the am. PT/OT to continue.
--- NOTE | 2019-07-07 16:45 | PQF ---
CLINICAL DOCUMENTATION IMPROVEMENT CLARIFICATION FORM: ICD-10 Updated PLEASE DO AN ADDENDUM TO THE PROGRESS NOTE WITH ANY DOCUMENTATION UPDATES OR ADDITIONS AND CARRY THROUGH TO DC SUMMARY. THANK YOU. DATE: 07/07/2019 ATTN: Dr. Pierce Please exercise your independent, professional judgment in responding to the clarification form. Clinical indicators are provided on the bottom of this form for your review Please check appropriate box(s): [ ] Encephalopathy: Etiology: [ ] Metabolic [ ] Septic [ ] Toxic [ ] Unspecified [ ] in the setting of underlying dementia [ ] Other (please specify) [ ] Other diagnosis [ ] Unable to determine In addition, please specify: Present on Admission (POA): [ ] Yes [ ] No [ ] Unable to determine For continuity of documentation, please document condition throughout progress notes and discharge summary. Thank You. CLINICAL INDICATORS - SIGNS / SYMPTOMS / LABS / RESULTS AND LOCATION IN EMR H&P 07/03: Per EMS, patient was A and O x1, was seen normal yesterday. PN 07/05: Exam: Psychiatric: normal affect, normal behavior, A&O x3 Acute encephalopathy secondary to UTI Sepsis secondary to UTI. RISKS: H&P 07/03: 79 yr old female from the [place]. Pt is cachectic. Hx of dementia; hx of COPD. PN 07/04: Sepsis secondary to UTI. TREATMENT: MAR: Order 07/03- 07/06: Rocephin 1 gm IV MAR: Order 07/06: Vantin 200 mg po Q12 hr Thank you, Renata (This form is maintained as a part of the permanent medical record) 2015 [email or web address] All Rights Reserved Renata Thornton RN, BSN [email or web address] Office: [phone] [email or web address]
[2019-07-07] MEDS ORDERED: Potassium Chloride 20 MEQ TAB PO SCH (17:15)
[2019-07-07] MEDS: Famotidine 20 MG TAB PO SCH (20:42)
[2019-07-08] MEDS: Lactated Ringer's 1,000 ML IV SCH ×4 (01:05→18:24)
[2019-07-08 06:47] LABS: Hemoglobin 9.3 g/dL (12.0-16.0); Mean Corpuscular HGB CONC 32.7 g/dL (32.0-36.0); Mean Corpuscular Hemoglobin 31.2 pg (27.0-31.0); Mean Corpuscular Volume 95.2 fL (78.0-98.0); Mean Platelet Volume 6.9 fL (7.4-10.4); Platelet Count 355 thou/uL (130-400); RBC Distribution Width 13.6 % (11.5-14.5); Red Blood Cell (RBC) Count 2.99 mill/uL (4.20-5.40); White Blood Cell (WBC) Count 10.7 thou/uL (4.8-10.8)
[2019-07-08 07:15] LABS: Albumin 2.7 g/dL (3.4-4.8); Anion Gap 11 mmol/L (10-20); BUN (Urea Nitrogen) 13 mg/dL (9.8-20.1); BUN/Creatinine Ratio 18.31; Calc. Creatinine Clearance 45 mL/min (70-130); Calcium 8.4 mg/dL (7.8-10.44); Carbon Dioxide 21 mmol/L (23-31); Chloride 109 mmol/L (98-107); Estimated GFR-MDRD 79; Glucose 76 mg/dL (83-110); Phosphorus 2.7 mg/dL (2.3-4.7); Potassium 3.8 mmol/L (3.5-5.1); Sodium 137 mmol/L (136-145)
[2019-07-08] MEDS: Mometasone/Formoterol 120 PUFF INHALER INH SCH ×2 (07:40→19:14)
[2019-07-08] MEDS: Donepezil HCl 10 MG TAB PO SCH (09:06)
[2019-07-08] MEDS: DULoxetine 30 MG CAP PO SCH (09:06)
[2019-07-08] MEDS: Meloxicam 15 MG TAB PO SCH (09:06)
[2019-07-08] MEDS: Aspirin 81 mg Enteric Coated Tablet PO SCH ×2 (09:06→20:51)
[2019-07-08] MEDS: Docusate 100 MG CAP PO SCH ×2 (09:07→20:50)
[2019-07-08] MEDS: Polyethylene Glycol 3350 17 GM Packet PO SCH (09:07)
--- NOTE | 2019-07-08 15:47 | PDOC.HOSPP ---
- Subjective Encounter Date: 07/08/19 Encounter Time: 10:45 Subjective: 79 y/o female, [place] resident, with Dementia, failure to thrive, COPD, recurrent falls admitted with acute mental status change and weakness. Found to have abdominal distension and UA suggestive of UTI and was started on antibiotiocs. Also given laxative for abdominal distension felt to be due to constipation. Mental status has improved but abdominal distension and tenderness persists. Had CT abdomen which showed marked bladder distension with bilateral hydronephrosis. Had lucio placement with marked diuresis. Oral intake remained poor. - Objective Vital Signs & Weight: Vital Signs (12 hours) Temp Pulse Resp BP Pulse Ox 07/08/19 07:40 72 16 98 07/08/19 07:27 97.7 F 70 20 152/66 H 96 Weight Admit Weight 98 lb 9.6 oz Weight 98 lb 9.6 oz I&O: 07/07/19 07/08/19 07/09/19 06:59 06:59 06:59 Intake Total 1300 2000 Output Total 4300 Balance 1300 -2300 Result Diagrams: 07/08/19 06:19 07/08/19 06:18 Hospitalist ROS - Medication Medications: Active Medications Generic Name Dose Route Start Last Admin Trade Name Freq PRN Reason Stop Dose Admin Aspirin 81 mg 07/04/19 09:00 07/08/19 09:06 Ecotrin PO 81 mg BID MANUEL Administration Cefpodoxime Proxetil 200 mg 07/06/19 21:00 07/08/19 09:06 Vantin PO 200 mg Q12HR MANUEL Administration Docusate Sodium 100 mg 07/04/19 09:00 07/08/19 09:07 Colace PO Not Given BID MANUEL Donepezil HCl 10 mg 07/04/19 09:00 07/08/19 09:06 Aricept PO 10 mg DAILY MANUEL Administration Duloxetine HCl 30 mg 07/04/19 09:00 07/08/19 09:06 Cymbalta PO 30 mg DAILY MANUEL Administration Famotidine 20 mg 07/03/19 21:00 07/07/19 20:42 Pepcid PO 20 mg QPM MANUEL Administration Lactated Ringer's 1,000 mls @ 150 mls/hr 07/08/19 11:58 07/08/19 12:13 Lactated Ringer's IV Not Given .[id number] MANUEL Meloxicam 15 mg 07/04/19 09:00 07/08/19 09:06 Mobic PO 15 mg DAILY MANUEL Administration Mometasone Furoate/Formoterol Fumar 1 puff 07/04/19 06:30 07/08/19 07:40 Dulera 100 Mcg/5 Mcg Inhaler INH 1 puff BID-RT MANUEL Administration Polyethylene Glycol 17 gm 07/04/19 09:00 07/08/19 09:07 Miralax PO Not Given DAILY MANUEL Quetiapine Fumarate 25 mg 07/04/19 21:00 07/07/19 20:42 Seroquel PO 25 mg HS MANUEL Administration - Exam General Appearance: awake alert General - other findings: thin elderly female Eye: anicteric sclera ENT: normocephalic atraumatic Neck: symmetric, no JVD Heart: RRR Respiratory: no wheezes, no rales, no ronchi, normal chest expansion, no tachypnea Gastrointestinal: soft, non-distended, normal bowel sounds Gastrointestinal - other findings: Lucio catheter in place Extremities: no cyanosis, no edema Neurological: cranial nerve grossly intact Neurological - other findings: oriented x 2. moving all limbs Hosp A/P (1) Postobstructive diuresis Code(s): R35.8 - OTHER POLYURIA Status: Acute (2) Bladder outlet obstruction Code(s): N32.0 - BLADDER-NECK OBSTRUCTION Status: Acute (3) Acute urinary retention Code(s): R33.8 - OTHER RETENTION OF URINE Status: Acute (4) JAGUAR (acute kidney injury) Code(s): N17.9 - ACUTE KIDNEY FAILURE, UNSPECIFIED Status: Acute (5) Bilateral hydronephrosis Code(s): N13.30 - UNSPECIFIED HYDRONEPHROSIS Status: Acute (6) Abdominal distension Code(s): R14.0 - ABDOMINAL DISTENSION (GASEOUS) Status: Acute (7) Anemia Code(s): D64.9 - ANEMIA, UNSPECIFIED Status: Acute (8) Failure to thrive in adult Status: Acute (9) Hypokalemia Code(s): E87.6 - HYPOKALEMIA Status: Acute (10) Hypomagnesemia Code(s): E83.42 - HYPOMAGNESEMIA Status: Acute (11) Physical deconditioning Code(s): R53.81 - OTHER MALAISE Status: Acute (12) Constipation Code(s): K59.00 - CONSTIPATION, UNSPECIFIED Status: Chronic (13) Protein-calorie malnutrition, moderate Code(s): E44.0 - MODERATE PROTEIN-CALORIE MALNUTRITION Status: Chronic (14) Dehydration Code(s): E86.0 - DEHYDRATION Status: Resolved (15) UTI (urinary tract infection) Status: Resolved - Plan Increase IVF rate to 150 cc/hr due to postobstructive diuresis. [place] oral intake. continue antibiotics PT/OT to continue. Monitor renal function
[2019-07-08] MEDS: Famotidine 20 MG TAB PO SCH (20:51)
[2019-07-09] MEDS: Lactated Ringer's 1,000 ML IV SCH ×3 (02:22→15:45)
[2019-07-09] MEDS: Mometasone/Formoterol 120 PUFF INHALER INH SCH ×2 (06:40→20:15)
[2019-07-09] MEDS: Aspirin 81 mg Enteric Coated Tablet PO SCH ×2 (08:14→19:46)
[2019-07-09] MEDS: Donepezil HCl 10 MG TAB PO SCH (08:14)
[2019-07-09] MEDS: DULoxetine 30 MG CAP PO SCH (08:15)
[2019-07-09] MEDS: Meloxicam 15 MG TAB PO SCH (08:15)
[2019-07-09] MEDS: Docusate 100 MG CAP PO SCH ×2 (08:15→19:44)
[2019-07-09] MEDS: Polyethylene Glycol 3350 17 GM Packet PO SCH (08:16)
[2019-07-09 09:37] LABS: Anion Gap 13 mmol/L (10-20); BUN (Urea Nitrogen) 8 mg/dL (9.8-20.1); BUN/Creatinine Ratio 13.11; Calc. Creatinine Clearance 53 mL/min (70-130); Calcium 8.6 mg/dL (7.8-10.44); Carbon Dioxide 27 mmol/L (23-31); Chloride 99 mmol/L (98-107); Estimated GFR-MDRD Greater than 90; Glucose 77 mg/dL (83-110); Phosphorus 3.2 mg/dL (2.3-4.7); Potassium 3.1 mmol/L (3.5-5.1); Sodium 136 mmol/L (136-145)
--- NOTE | 2019-07-09 16:00 | PDOC.HOSPP ---
- Subjective Encounter Date: 07/09/19 Encounter Time: 10:09 Subjective: 79 y/o female, [place] resident, with Dementia, failure to thrive, COPD, recurrent falls admitted with acute mental status change and weakness. Found to have abdominal distension and UA suggestive of UTI and was started on antibiotiocs. Also given laxative for abdominal distension felt to be due to constipation. Mental status has improved but abdominal distension and tenderness persists. Had CT abdomen which showed marked bladder distension with bilateral hydronephrosis. Had lucio placement with marked diuresis. Oral intake better but still poor. - Objective Vital Signs & Weight: Vital Signs (12 hours) Temp Pulse Resp BP Pulse Ox 07/09/19 08:00 97.9 F 72 14 159/74 H 95 07/09/19 06:40 68 14 96 Weight Admit Weight 98 lb 9.6 oz Weight 98 lb 9.6 oz I&O: 07/08/19 07/09/19 07/10/19 06:59 06:59 06:59 Intake Total 1999 3730 Output Total 4300 2800 Balance -2300 930 Result Diagrams: 07/08/19 06:19 07/09/19 08:55 Hospitalist ROS - Medication Medications: Active Medications Generic Name Dose Route Start Last Admin Trade Name Freq PRN Reason Stop Dose Admin Aspirin 81 mg 07/04/19 09:00 07/09/19 08:14 Ecotrin PO 81 mg BID MANUEL Administration Cefpodoxime Proxetil 200 mg 07/06/19 21:00 07/09/19 08:15 Vantin PO 200 mg Q12HR MANUEL Administration Docusate Sodium 100 mg 07/04/19 09:00 07/09/19 08:15 Colace PO Not Given BID MANUEL Donepezil HCl 10 mg 07/04/19 09:00 07/09/19 08:14 Aricept PO 10 mg DAILY MANUEL Administration Duloxetine HCl 30 mg 07/04/19 09:00 07/09/19 08:15 Cymbalta PO 30 mg DAILY MANUEL Administration Famotidine 20 mg 07/03/19 21:00 07/08/19 20:51 Pepcid PO 20 mg QPM MANUEL Administration Mometasone Furoate/Formoterol Fumar 1 puff 07/04/19 06:30 07/09/19 06:40 Dulera 100 Mcg/5 Mcg Inhaler INH 1 puff BID-RT MANUEL Administration Polyethylene Glycol 17 gm 07/04/19 09:00 07/09/19 08:16 Miralax PO Not Given DAILY MANUEL Quetiapine Fumarate 25 mg 07/04/19 21:00 07/08/19 20:51 Seroquel PO 25 mg HS MANUEL Administration - Exam General Appearance: awake alert General - other findings: thin female Eye: anicteric sclera ENT: normocephalic atraumatic Neck: symmetric, no JVD Heart: RRR Respiratory: no wheezes, no rales, no ronchi, normal chest expansion Gastrointestinal: soft, non-tender, non-distended, normal bowel sounds Extremities: no cyanosis, no edema Neurological: cranial nerve grossly intact, no new deficit Neurological - other findings: oriented to person and place Hosp A/P (1) JAGUAR (acute kidney injury) Code(s): N17.9 - ACUTE KIDNEY FAILURE, UNSPECIFIED Status: Acute (2) Acute urinary retention Code(s): R33.8 - OTHER RETENTION OF URINE Status: Acute (3) Postobstructive diuresis Code(s): R35.8 - OTHER POLYURIA Status: Acute (4) Bladder outlet obstruction Code(s): N32.0 - BLADDER-NECK OBSTRUCTION Status: Acute (5) Bilateral hydronephrosis Code(s): N13.30 - UNSPECIFIED HYDRONEPHROSIS Status: Acute (6) Abdominal distension Code(s): R14.0 - ABDOMINAL DISTENSION (GASEOUS) Status: Acute (7) Anemia Code(s): D64.9 - ANEMIA, UNSPECIFIED Status: Acute (8) Failure to thrive in adult Status: Acute (9) Hypokalemia Code(s): E87.6 - HYPOKALEMIA Status: Acute (10) Hypomagnesemia Code(s): E83.42 - HYPOMAGNESEMIA Status: Acute (11) Physical deconditioning Code(s): R53.81 - OTHER MALAISE Status: Acute (12) Constipation Code(s): K59.00 - CONSTIPATION, UNSPECIFIED Status: Chronic (13) Protein-calorie malnutrition, moderate Code(s): E44.0 - MODERATE PROTEIN-CALORIE MALNUTRITION Status: Chronic (14) Dehydration Code(s): E86.0 - DEHYDRATION Status: Resolved (15) UTI (urinary tract infection) Status: Resolved (16) Acute metabolic encephalopathy Code(s): G93.41 - METABOLIC ENCEPHALOPATHY Status: Acute Plan: Present on admission. - Plan Replete serum potassium. DC IVF [place] oral intake. continue antibiotics PT/OT to continue. Monitor renal function and CBC Possible discharge tomorrow Continue lucio care
[2019-07-09] MEDS: Potassium Chloride 20 MEQ TAB PO SCH ×2 (16:25→19:44)
[2019-07-09] MEDS: Famotidine 20 MG TAB PO SCH (19:44)
[2019-07-10] MEDS: Mometasone/Formoterol 120 PUFF INHALER INH SCH ×2 (07:15→19:53)
[2019-07-10] MEDS: Polyethylene Glycol 3350 17 GM Packet PO SCH (08:22)
[2019-07-10] MEDS: Donepezil HCl 10 MG TAB PO SCH (08:23)
[2019-07-10] MEDS: DULoxetine 30 MG CAP PO SCH (08:23)
[2019-07-10] MEDS: Docusate 100 MG CAP PO SCH ×2 (08:23→20:20)
[2019-07-10] MEDS: Aspirin 81 mg Enteric Coated Tablet PO SCH ×2 (08:24→20:19)
[2019-07-10 10:32] LABS: Hemoglobin 10.3 g/dL (12.0-16.0); Mean Corpuscular HGB CONC 32.5 g/dL (32.0-36.0); Mean Corpuscular Hemoglobin 30.3 pg (27.0-31.0); Mean Corpuscular Volume 93.3 fL (78.0-98.0); Mean Platelet Volume 7.2 fL (7.4-10.4); Platelet Count 390 thou/uL (130-400); RBC Distribution Width 13.5 % (11.5-14.5); Red Blood Cell (RBC) Count 3.41 mill/uL (4.20-5.40); White Blood Cell (WBC) Count 22.2 thou/uL (4.8-10.8)
[2019-07-10 10:52] LABS: Anion Gap 15 mmol/L (10-20); BUN (Urea Nitrogen) 12 mg/dL (9.8-20.1); BUN/Creatinine Ratio 18.46; Calc. Creatinine Clearance 50 mL/min (70-130); Calcium 8.3 mg/dL (7.8-10.44); Carbon Dioxide 25 mmol/L (23-31); Chloride 101 mmol/L (98-107); Estimated GFR-MDRD 88; Glucose 116 mg/dL (83-110); Magnesium 1.3 mg/dL (1.6-2.6); Phosphorus 2.6 mg/dL (2.3-4.7); Sodium 137 mmol/L (136-145)
[2019-07-10] MEDS ORDERED: Magnesium Sulfate 4 GM in Sodium Chloride 0.9% 250 ML 250 ML IVPB SCH (11:45)
[2019-07-10] MEDS: metroNIDAZOLE 500 MG TAB PO SCH ×2 (15:11→20:20)
--- NOTE | 2019-07-10 15:29 | PDOC.HOSPP ---
- Subjective Encounter Date: 07/10/19 Encounter Time: 10:28 Subjective: 79 y/o female, [place] resident, with Dementia, failure to thrive, COPD, recurrent falls admitted with acute mental status change and weakness. Found to have abdominal distension and UA suggestive of UTI and was started on antibiotiocs. Also given laxative for abdominal distension felt to be due to constipation. However abdominal distension persisted after several BM hence patient had CT abdomen which showed marked bladder distension with bilateral hydronephrosis. Had lucio placement with marked diuresis. Oral intake better but still suboptimal. No fever. - Objective Vital Signs & Weight: Vital Signs (12 hours) Temp Pulse Resp BP Pulse Ox 07/10/19 08:00 94 L 07/10/19 07:23 98.8 F 92 20 156/72 H 91 L 07/10/19 07:15 92 14 98 Weight Admit Weight 98 lb 9.6 oz Weight 98 lb 9.6 oz I&O: 07/09/19 07/10/19 07/11/19 06:59 06:59 06:59 Intake Total 3730 1240 480 Output Total 2800 2500 Balance 930 -1260 480 Result Diagrams: 07/10/19 10:06 07/10/19 10:06 Hospitalist ROS - Medication Medications: Active Medications Generic Name Dose Route Start Last Admin Trade Name Nasimq PRN Reason Stop Dose Admin Aspirin 81 mg 07/04/19 09:00 07/10/19 08:24 Ecotrin PO 81 mg BID MANUEL Administration Cefpodoxime Proxetil 200 mg 07/06/19 21:00 07/10/19 08:23 Vantin PO 200 mg Q12HR MANUEL Administration Docusate Sodium 100 mg 07/04/19 09:00 07/10/19 08:23 Colace PO 100 mg BID MANUEL Administration Donepezil HCl 10 mg 07/04/19 09:00 07/10/19 08:23 Aricept PO 10 mg DAILY MANUEL Administration Duloxetine HCl 30 mg 07/04/19 09:00 07/10/19 08:23 Cymbalta PO 30 mg DAILY MANUEL Administration Famotidine 20 mg 07/03/19 21:00 07/09/19 19:44 Pepcid PO 20 mg QPM MANUEL Administration Metronidazole 500 mg 07/10/19 15:00 07/10/19 15:11 Flagyl PO 500 mg TID MANUEL Administration Mometasone Furoate/Formoterol Fumar 1 puff 07/04/19 06:30 07/10/19 07:15 Dulera 100 Mcg/5 Mcg Inhaler INH 1 puff BID-RT MANUEL Administration Polyethylene Glycol 17 gm 07/04/19 09:00 07/10/19 08:22 Miralax PO 17 gm DAILY MANUEL Administration Quetiapine Fumarate 25 mg 07/04/19 21:00 07/09/19 19:44 Seroquel PO 25 mg HS MANUEL Administration - Exam General Appearance: awake alert Eye: anicteric sclera ENT: normocephalic atraumatic, moist mucosa Neck: symmetric, no JVD Heart: irregular Heart - other findings: tachycardic Respiratory: no wheezes, no ronchi, normal chest expansion, no tachypnea Gastrointestinal: soft, non-distended, normal bowel sounds Gastrointestinal - other findings: tenderness lower abdomen noted Extremities: no cyanosis, no edema Neurological: cranial nerve grossly intact, no focal deficits Neurological - other findings: memory lapses noted Musculoskeletal: generalized weakness, diffuse muscle atrophy Hosp A/P (1) Leucocytosis Code(s): D72.829 - ELEVATED WHITE BLOOD CELL COUNT, UNSPECIFIED Status: Acute (2) Acute urinary retention Code(s): R33.8 - OTHER RETENTION OF URINE Status: Acute (3) JAGUAR (acute kidney injury) Code(s): N17.9 - ACUTE KIDNEY FAILURE, UNSPECIFIED Status: Acute (4) Postobstructive diuresis Code(s): R35.8 - OTHER POLYURIA Status: Acute (5) Bladder outlet obstruction Code(s): N32.0 - BLADDER-NECK OBSTRUCTION Status: Acute (6) Bilateral hydronephrosis Code(s): N13.30 - UNSPECIFIED HYDRONEPHROSIS Status: Acute (7) Abdominal distension Code(s): R14.0 - ABDOMINAL DISTENSION (GASEOUS) Status: Acute (8) Anemia Code(s): D64.9 - ANEMIA, UNSPECIFIED Status: Acute (9) Failure to thrive in adult Status: Acute (10) Hypokalemia Code(s): E87.6 - HYPOKALEMIA Status: Acute (11) Hypomagnesemia Code(s): E83.42 - HYPOMAGNESEMIA Status: Acute (12) Physical deconditioning Code(s): R53.81 - OTHER MALAISE Status: Acute (13) Constipation Code(s): K59.00 - CONSTIPATION, UNSPECIFIED Status: Chronic (14) Protein-calorie malnutrition, moderate Code(s): E44.0 - MODERATE PROTEIN-CALORIE MALNUTRITION Status: Chronic (15) Dehydration Code(s): E86.0 - DEHYDRATION Status: Resolved (16) UTI (urinary tract infection) Status: Resolved (17) Acute metabolic encephalopathy Code(s): G93.41 - METABOLIC ENCEPHALOPATHY Status: Acute - Plan Add flagyl to vantin for possible intestinal infection given new onset leucocytosis. [place] oral intake. continue antibiotics PT/OT to continue. Monitor renal function and CBC Continue lucio care
[2019-07-10] MEDS: Famotidine 20 MG TAB PO SCH (20:19)
[2019-07-11 06:12] LABS: Hemoglobin 9.8 g/dL (12.0-16.0); Mean Corpuscular HGB CONC 33.2 g/dL (32.0-36.0); Mean Corpuscular Hemoglobin 30.9 pg (27.0-31.0); Mean Corpuscular Volume 93.1 fL (78.0-98.0); Mean Platelet Volume 7.4 fL (7.4-10.4); Platelet Count 362 thou/uL (130-400); RBC Distribution Width 13.7 % (11.5-14.5); Red Blood Cell (RBC) Count 3.16 mill/uL (4.20-5.40); White Blood Cell (WBC) Count 11.9 thou/uL (4.8-10.8)
[2019-07-11 06:31] LABS: Albumin 2.8 g/dL (3.4-4.8); Anion Gap 12 mmol/L (10-20); BUN (Urea Nitrogen) 18 mg/dL (9.8-20.1); BUN/Creatinine Ratio 25.35; Calc. Creatinine Clearance 45 mL/min (70-130); Carbon Dioxide 27 mmol/L (23-31); Chloride 100 mmol/L (98-107); Estimated GFR-MDRD 79; Glucose 84 mg/dL (83-110); Magnesium 2.3 mg/dL (1.6-2.6); Phosphorus 2.7 mg/dL (2.3-4.7); Potassium 3.6 mmol/L (3.5-5.1); Sodium 135 mmol/L (136-145)
[2019-07-11] MEDS: Mometasone/Formoterol 120 PUFF INHALER INH SCH (07:14)
[2019-07-11] MEDS: Polyethylene Glycol 3350 17 GM Packet PO SCH (09:49)
[2019-07-11] MEDS: DULoxetine 30 MG CAP PO SCH (09:50)
[2019-07-11] MEDS: Aspirin 81 mg Enteric Coated Tablet PO SCH (09:50)
[2019-07-11] MEDS: Donepezil HCl 10 MG TAB PO SCH (09:50)
[2019-07-11] MEDS: metroNIDAZOLE 500 MG TAB PO SCH ×2 (09:50→16:43)
[2019-07-11] MEDS: Docusate 100 MG CAP PO SCH (09:50)
--- NOTE | 2019-07-11 12:20 | PQF ---
CLINICAL DOCUMENTATION IMPROVEMENT CLARIFICATION FORM: ICD-10 Updated PLEASE DO AN ADDENDUM TO THE PROGRESS NOTE WITH ANY DOCUMENTATION UPDATES OR ADDITIONS AND CARRY THROUGH TO DC SUMMARY. THANK YOU. DATE: 07/11/2019 ATTN: Dr. Pierce Please exercise your independent, professional judgment in responding to the clarification form. Clinical indicators are provided on the bottom of this form for your review Please check appropriate box(s) to clarify if the following diagnosis has been ruled in or ruled out: _SEPSIS ____ [ ] Ruled in diagnosis [ ] Continue to treat [ ] Resolved [ ] Ruled out diagnosis [ ] Cannot rule out diagnosis [ ] Other diagnosis [ ] Unable to determine In addition, please specify: Present on Admission (POA): [ ] Yes [ ] No [ ] Unable to determine For continuity of documentation, please document condition throughout progress notes and discharge summary. Thank You. CLINICAL INDICATORS - SIGNS / SYMPTOMS / LABS / RESULTS AND LOCATION IN MR PN 07/06: Acute encephalopathy secondary to UTI Sepsis secondary to UTI -WBC down to 17, urine culture show 25,000 to 50,000 CFU, however improved with antibiotics PN 07/10: Leucocytosis UTI Resolved Acute metabolic encephalopathy. RISKS: H&P 07/03: 79 yr old female from the [place]. Hx of dementia; hx of COPD. Assessment: AMS, most likely due to dehydration and UTI. TREATMENT: Order 07/03-07/06: IV Rocephin 1 gm IV q 24 hr MAR: 07/06: Vantin 200mg po q 12hr PN 07/10: Plan - add flagyl to vantin for possible-intestinal infection given new onset leucocytosis Thank you, Renata (This form is maintained as a part of the permanent medical record) 2014 [employer]. All Rights Reserved Renata Thornton RN, BSN [email or web address] Office: [phone] [facility]
[2019-07-11 16:02] VITALS: BP 106/64; TEMP 98.5
--- NOTE | 2019-07-11 21:58 | DIS ---
DATE OF ADMISSION: 07/03/2019 DATE OF DISCHARGE: 07/11/2019 PRIMARY CARE PHYSICIAN: Christiano Devries MD DISCHARGE DIAGNOSES: 1. Sepsis: Due to urinary tract infection. Present on admission. 2. Urinary tract infection. 3. Acute urinary retention. 4. Acute kidney injury. 5. Bilateral hydronephrosis. 6. Obstructive uropathy. 7. Bladder outlet obstruction. 8. Abdominal distention. 9. Postobstructive diuresis. 10. Anemia. 11. Failure to thrive in adults. 12. Hypokalemia. 13. Hypomagnesemia. 14. Constipation. 15. Protein-calorie malnutrition, moderate. 16. Dehydration. 17. Physical deconditioning. 18. Acute metabolic encephalopathy. 19. Dementia. HOSPITAL COURSE: A 79-year-old female, [facility] resident with dementia, failure to thrive, COPD, and recurrent falls, admitted with acute mental status change and weakness. The patient was noted to have abdominal distention as well as urinalysis suggestive of UTI. The patient was started on antibiotics for urinary tract infection associated with sepsis. She also received laxative for abdominal distention felt to be due to constipation. Despite having several bowel motions, the patient continued to have abdominal distention and some tenderness, hence CT scan of the abdomen and pelvis was obtained, which showed marked bladder distention with bilateral hydronephrosis. The patient had Rojas catheter placed with marked diuresis consistent with postobstructive diuresis. On presentation also, the patient has acute kidney injury, which was felt to be due to volume depletion and was treated with IV fluid with improvement. The patient was treated with IV fluids also given postobstructive diuresis with stabilization of renal function. Condition improved and the patient was subsequently [facility] for completion of antibiotics and therapy. The patient was discharged on Rojas catheter with a view to doing voiding trial in 2 weeks. PHYSICAL EXAMINATION: VITAL SIGNS: Temperature 98.5, pulse 78, respiratory rate 18, SpO2 of 95% on room air, and blood pressure is 106/64. GENERAL: Thin, elderly female, in no obvious distress. Afebrile, anicteric, acyanotic. HEENT: Normocephalic, atraumatic. Oral mucosa is moist. CARDIOVASCULAR: Regular rhythm and rate. RESPIRATORY: Good air entry bilaterally with few transmitted breath sounds with no obvious crackle or rhonchi or use of accessory muscles. GI: Full, soft, nontender, nondistended with normal bowel sounds. UROGENITAL: Rojas catheter is in place, draining urine. EXTREMITIES: Pain with no edema or erythema. Diffuse muscular atrophy noted. 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 Oriented to person and place. Some memory lapses noted. Cranial nerves 2 through 12 are grossly intact. DISCHARGE CONDITION: Improved. DISCHARGE DISPOSITION: [facility], [facility]. DISCHARGE INSTRUCTIONS: The patient is to follow up in 2 weeks with urologist for voiding trial. DISCHARGE MEDICATIONS: Prior to hospital medications were restarted at discharge with the only additions being Vantin and Flagyl. TIME SPENT: This discharge took more than 33 minutes. Job ID: [id number]
== END 2019-07-11 17:46 | DRG 871 ==
LOC: ERS 09:26 → T4-A 14:23
PROVIDERS: ADMIT Internal Medicine; ATTEND Internal Medicine
DX: A41.9 Sepsis, unspecified organism (principal); G93.41 Metabolic encephalopathy; N17.9 Acute kidney failure, unspecified; N13.6 Pyonephrosis; E44.0 Moderate protein-calorie malnutrition; Z68.1 Body mass index [BMI] 19.9 or less, adult; R64 Cachexia; E87.0 Hyperosmolality and hypernatremia; G30.9 Alzheimer's disease, unspecified; F02.80 Dementia in other diseases classified elsewhere, unspecified severity, without behavioral disturbance, psychotic disturbance, mood disturbance, and anxiety; J44.9 Chronic obstructive pulmonary disease, unspecified; E86.0 Dehydration; Z90.710 Acquired absence of both cervix and uterus; Z79.82 Long term (current) use of aspirin; Z79.899 Other long term (current) drug therapy; D64.9 Anemia, unspecified; K59.00 Constipation, unspecified; R53.81 Other malaise; E87.6 Hypokalemia; E83.42 Hypomagnesemia; F17.210 Nicotine dependence, cigarettes, uncomplicated; R29.6 Repeated falls; R62.7 Adult failure to thrive; R13.10 Dysphagia, unspecified
CPT/HCPCS: 36415; 51701; 71045; 74018; 74177; 80048; 80053; 80069; 81003; 81015; 82550; 83605; 83735; 84484; 85025; 85027; 87040; 87077; 87086; 87186; 87804; 93005; 96360; 96365; 96366; 96367; 99292; A4353; J0360; J0696; J2370; J3475; J3490; J7042; J7050